=== PATIENT | male | born 1940 | race Caucasian/White ===

== ENCOUNTER 2019-05-12 13:37 | Outpatient (CLI) | payer MEDICARE, OTHER, SELFPAY ==
--- NOTE | 2019-05-12 13:47 | USCV_ITS ---
Geovanny Lujan Age: 78 Gender: M : 1940 Exam Date: 05/12/2019 14:12 Ordering Phys: Guy Durham MD ([email or web address]) Technologist: Dorinda Gutierrez Exam Location: [facility] [place] Indication: carotid stenosis Risk Factors: None Previous Vascular Surgery: None Right Brachial BP: / Left Brachial BP: / Right Left Velocity (cm/s) Spectral Plaque Velocity (cm/s) Spectral Plaque Syst/Diast Broadening Syst/Diast Broadening 99.20/ 14.30 Prox CCA 118.10/ 18.60 76.10/ 13.20 Mid CCA 81.50 / 6.60 50.60/ 9.90 Hetro Distal CCA 74.90 / 10.50 Jose 78.30/ 15.40 Hetro Prox ICA 87.20 / 12.00 Jose 59.00/ 9.40 Mid ICA 62.40 / 15.40 67.50/ 11.10 Distal ICA 71.20 / 19.10 113.60 ECA 101.80 0.79 ICA/CCA 0.74 Antegrade Vertebral Antegrade 43.40/ 6.60 cm/s 89.30/ 15.40 cm/s Tri Subclavian Tri 185.0 85.40 0 FINDINGS Minimal plaque of the right bifurcation. Mild to moderate plaque of the left bifurcation and proximal internal carotid artery Intimal thickening in the common carotid arteries bilaterally CONCLUSIONS Mild to moderate plaque of the left bifurcation and proximal internal carotid artery Minimal plaque of the right bifurcation. No significant stenosis, based on the above findings Dr Monica Cruz MD [facility] (Electronically Signed) Final Date: 12 May 2019 19:49 S
== END 2019-05-12 13:38 | disposition home or self-care (01) ==
LOC: RAD 13:42
PROVIDERS: PCP Family Medicine; Visit Provider Internal Medicine Cardiovascular Disease
DX: I65.23 Occlusion and stenosis of bilateral carotid arteries (principal)
CPT/HCPCS: 93880

== ENCOUNTER → 2019-06-18 16:16 | Outpatient (BNVA) | payer MEDICARE, OTHER, SELFPAY | PROVIDERS: Family Provider Family Medicine; PCP Family Medicine; Referring Provider Nurse Practitioner; Visit Provider Nurse Practitioner | DX: E78.2 Mixed hyperlipidemia (principal); E11.42 Type 2 diabetes mellitus with diabetic polyneuropathy; Z79.4 Long term (current) use of insulin; I10 Essential (primary) hypertension; E11.9 Type 2 diabetes mellitus without complications; Z76.89 Persons encountering health services in other specified circumstances | CPT/HCPCS: 80053; 80061; 82044; 83036; 85025 ==

== ENCOUNTER 2019-07-08 10:14 | Outpatient (CLI) | payer MEDICARE, OTHER, SELFPAY ==
[2019-07-08 10:42] LABS: Basophils % 0.5 %; Eosinophils # 0.1 10^3/uL (0.0-0.8); Eosinophils % 2.2 %; Hematocrit 37.3 % (42.0-52.0); Hemoglobin 12.1 g/dL (11.7-16.6); Lymphocytes # 2.1 10^3/uL (0.8-4.8); Lymphocytes % 32.6 %; Mean Corpuscular HGB Conc 32.4 g/dL (30.0-36.0); Mean Corpuscular Hemoglobin 29.1 pg (28.0-34.0); Mean Corpuscular Volume 89.7 fL (80-94); Mean Platelet Volume 9.2 fL (7.4-10.4); Monocytes # 0.7 10^3/uL (0.2-0.9); Monocytes % 10.9 %; Neutrophils # 3.5 10^3/uL (1.8-7.7); Neutrophils % 53.5 %; Nucleated Red Blood Cells % 0 %; Platelet Count 225 10^3/cmm (130-400); Red Blood Count 4.16 10^6/uL (4.1-5.3); Red Cell Distribution Width 13.2 % (12.1-15.1); White Blood Count 6.5 10^3/uL (4.0-10.0)
[2019-07-08 10:59] LABS: Albumin Level 4.3 g/dL (3.5-5.2); Anion Gap 16.2 (5-19); Blood Urea Nitrogen 40 mg/dL (8-23); Calcium 9.8 mg/dL (8.5-10.5); Carbon Dioxide 26 mmol/L (22-29); Chloride 101 mmol/L (98-107); Glucose 162 mg/dL (65-115); Phosphorus 3.9 mg/dL (2.5-4.5); Potassium 4.2 mmol/L (3.5-5.1); Sodium 139 mmol/L (136-145)
[2019-07-08 11:16] LABS: Creatinine Urine, Random 64 mg/dL (39-259); Microalbumin Random Urine 34 ug/dL (0-20)
[2019-07-08 11:18] LABS: 25 Hydroxy Vitamin D 50 ng/mL (30-100)
[2019-07-08 11:24] LABS: Microalbum Creatinine Ratio Ur 531 mg/dL (0-20)
[2019-07-08 11:34] LABS: Calcium 9.7 mg/dL (8.5-10.5); Parathyroid Hormone 48.9 pg/mL (15-65)
== END 2019-07-08 10:15 | disposition home or self-care (01) ==
LOC: LAB 10:17
PROVIDERS: PCP Nurse Practitioner; Visit Provider Internal Medicine Nephrology
DX: N18.4 Chronic kidney disease, stage 4 (severe) (principal)
CPT/HCPCS: 36415; 80069; 82044; 82306; 82310; 83970; 85025

== ENCOUNTER 2019-11-06 10:36 | Outpatient (CLI) | payer MEDICARE, OTHER, SELFPAY ==
[2019-11-06 11:00] LABS: Basophils % 0.6 %; Eosinophils # 0.2 10^3/uL (0.0-0.8); Eosinophils % 2.9 %; Hematocrit 36.6 % (42.0-52.0); Hemoglobin 11.7 g/dL (11.7-16.6); Lymphocytes % 27.1 %; Mean Corpuscular Hemoglobin 29.6 pg (28.0-34.0); Mean Corpuscular Volume 92.7 fL (80-94); Mean Platelet Volume 9.3 fL (7.4-10.4); Monocytes # 0.8 10^3/uL (0.2-0.9); Monocytes % 11.3 %; Neutrophils # 4.2 10^3/uL (1.8-7.7); Neutrophils % 57.8 %; Nucleated Red Blood Cells % 0 %; Platelet Count 237 10^3/cmm (130-400); Red Blood Count 3.95 10^6/uL (4.1-5.3); Red Cell Distribution Width 13.2 % (12.1-15.1); White Blood Count 7.2 10^3/uL (4.0-10.0)
[2019-11-06 11:36] LABS: Albumin Level 4.2 g/dL (3.5-5.2); Anion Gap 17.6 (5-19); Blood Urea Nitrogen 47 mg/dL (8-23); Calcium 9.6 mg/dL (8.5-10.5); Carbon Dioxide 27 mmol/L (22-29); Chloride 100 mmol/L (98-107); Glucose 100 mg/dL (65-115); Phosphorus 4.2 mg/dL (2.5-4.5); Potassium 4.6 mmol/L (3.5-5.1); Sodium 140 mmol/L (136-145)
[2019-11-06 11:57] LABS: Creatinine Urine, Random 53 mg/dL (39-259); Microalbumin Random Urine 18 ug/dL (0-20)
[2019-11-06 12:15] LABS: Microalbum Creatinine Ratio Ur 340 mg/dL (0-20)
== END 2019-11-06 10:37 | disposition home or self-care (01) ==
LOC: LAB 10:36
PROVIDERS: Visit Provider Internal Medicine Nephrology
DX: N18.3 Chronic kidney disease, stage 3 (moderate) (principal)
CPT/HCPCS: 36415; 80069; 82044; 85025

== ENCOUNTER → 2019-12-16 10:07 | Outpatient (BNVA) | payer MEDICARE, OTHER, SELFPAY | PROVIDERS: PCP Family Medicine; Visit Provider Family Medicine | DX: E11.42 Type 2 diabetes mellitus with diabetic polyneuropathy (principal); Z79.4 Long term (current) use of insulin | CPT/HCPCS: 83036 ==

== ENCOUNTER 2020-02-13 09:55 | Outpatient (CLI) | payer MEDICARE, OTHER, SELFPAY ==
[2020-02-13 10:48] LABS: Albumin Level 4.3 g/dL (3.5-5.2); Anion Gap 15.6 (5-19); Blood Urea Nitrogen 69 mg/dL (8-23); Calcium 9.6 mg/dL (8.5-10.5); Carbon Dioxide 23 mmol/L (22-29); Chloride 103 mmol/L (98-107); Glucose 160 mg/dL (65-115); Phosphorus 4.7 mg/dL (2.5-4.5); Potassium 4.6 mmol/L (3.5-5.1); Sodium 137 mmol/L (136-145)
[2020-02-13 10:55] LABS: Urine Creatinine 110 mg/dL (39-259)
[2020-02-13 10:59] LABS: UPRO/UCREAT Ratio 0.28 mg/mg CR; Urine Protein Random 31 mg/dL
[2020-02-13 11:04] LABS: Calcium 9.5 mg/dL (8.5-10.5); Parathyroid Hormone 58.6 pg/mL (15-65)
== END 2020-02-13 09:56 | disposition home or self-care (01) ==
LOC: LAB 10:00
PROVIDERS: PCP Internal Medicine Nephrology; Visit Provider Internal Medicine Nephrology
DX: N18.4 Chronic kidney disease, stage 4 (severe) (principal)
CPT/HCPCS: 36415; 80069; 82310; 82570; 83970; 84156

== ENCOUNTER 2020-02-16 13:30 | Outpatient (CLI) | payer MEDICARE, OTHER, SELFPAY ==
--- NOTE | 2020-02-16 13:38 | XR_ITS ---
WS: [id number] CERVICAL SPINE TECHNIQUE: 3 views of the cervical spine CLINICAL INFORMATION: chronic neck pain COMPARISON: None. FINDINGS: Straightening of the normal cervical lordosis. Slight anterolisthesis C3 on C4. Disc space narrowing worse at C4-C5 and C5-C6. Anterior hypertrophic changes worse in the mid cervical spine. Normal C1-2 articulation. Normal prevertebral soft tissues. Moderate to advanced facet arthropathy in mid cervica l spine. XR/XR cervical spine 3V* [id number] IMPRESSION: 1. Moderate spondylitic changes cervical spine with slight anterolisthesis C3 on C4 measuring 2.1 mm. 2. Disc space narrowing worse at C4-C5 C5-C6 and C6-C7. 3. Anterior hypertrophic changes C4-C6.
== END 2020-02-16 13:31 | disposition home or self-care (01) ==
LOC: WPI 13:37
PROVIDERS: PCP Internal Medicine Nephrology; Visit Provider Family Medicine
DX: M54.2 Cervicalgia (principal); G89.29 Other chronic pain
CPT/HCPCS: 72040

== ENCOUNTER 2020-02-20 09:30 | Outpatient (RCR) | payer MEDICARE, OTHER, SELFPAY | END 2020-03-06 23:59 | disposition home or self-care (01) | LOC: SPT 09:30 | PROVIDERS: PCP Internal Medicine Nephrology; Referring Provider Family Medicine; Visit Provider Family Medicine | DX: G89.29 Other chronic pain (principal); M54.2 Cervicalgia | CPT/HCPCS: 97110; 97161 ==

== ENCOUNTER 2020-03-07 06:00 | Outpatient (RCR) | payer MEDICARE, OTHER, SELFPAY | END 2020-04-05 23:59 | disposition home or self-care (01) | LOC: SPT 06:00 | PROVIDERS: PCP Internal Medicine Nephrology; Referring Provider Family Medicine; Visit Provider Family Medicine | DX: M54.2 Cervicalgia (principal); G89.29 Other chronic pain | CPT/HCPCS: 97110 ==

== ENCOUNTER 2020-03-16 15:52 | Outpatient (CLI) | payer MEDICARE, OTHER, SELFPAY ==
--- NOTE | 2020-03-16 16:20 | MR_ITS ---
WS: [id number] MRI CERVICAL SPINE NONCONTRAST TECHNIQUE: Sagittal T1, T2 and STIR imaging. Axial T2, gradient, and fiesta imaging. CLINICAL INFORMATION: chronic neck pain COMPARISON: None. FINDINGS: Straightening of the normal cervical lordosis. Cord signal is normal. Moderate spondylitic changes. C2-C3: Normal. C3-C4: Mild disc osteophyte complex with endplate ridging. Mild left and no significant right foramin al narrowing. Spinal canal is patent. Mild facet arthropathy. C4-C5: Disc osteophyte complex endplate ridging. Mild central canal stenosis. Mild to moderate left a nd mild right bony foraminal narrowing. Moderate facet arthropathy. C5-C6: Disc osteophyte complex with endplate ridging. Mild central canal stenosis. Mild left and no s ignificant right foraminal narrowing. Mild facet arthropathy. C6-C7: Slight anterolisthesis C6 on C7. Small central disc osteophyte protrusion with mild central ca nal stenosis. Mild to moderate left and no significant right foraminal narrowing. C7-T1: Grade 1 anterolisthesis C7 on T1. Mild left greater than right bony foraminal narrowing. Spina l canal is patent. Visualized brain stem structures: Normal. Prevertebral soft tissues: Normal. MR/MR cervical spin wo con* [id number] IMPRESSION: 1. Straightening of the normal cervical lordosis. Cord signal is normal. 2. Mild central canal stenosis due to disc osteophyte complexes at C4-C5 C5-C6 and C6-C7. 3. Left pericentral disc osteophyte protrusion at C6-C7 with slight contact of the cervical cord. 4. Slight anterolisthesis C6 on C7, C7 on T1, and T1 on T2. 5. Mild to moderate bony foraminal narrowing worse at left C4-C5, left C5-C6, and left C6-C7.
== END 2020-03-16 15:53 | disposition home or self-care (01) ==
LOC: RADWPI 15:57
PROVIDERS: PCP Family Medicine; Visit Provider Family Medicine
DX: M54.2 Cervicalgia (principal); G89.29 Other chronic pain; M48.02 Spinal stenosis, cervical region; M25.78 Osteophyte, vertebrae
CPT/HCPCS: 72141

== ENCOUNTER → 2020-03-24 08:39 | Outpatient (BNVA) | payer MEDICARE, OTHER, SELFPAY | PROVIDERS: PCP Family Medicine; Referring Provider Family Medicine; Visit Provider Anesthesiology Pain Medicine | DX: G89.29 Other chronic pain (principal); M54.2 Cervicalgia; M51.17 Intervertebral disc disorders with radiculopathy, lumbosacral region | CPT/HCPCS: 99204 ==

== ENCOUNTER → 2020-04-05 10:48 | Outpatient (BNVA) | payer MEDICARE, OTHER, SELFPAY | PROVIDERS: PCP Family Medicine; Visit Provider Family Medicine | DX: E11.42 Type 2 diabetes mellitus with diabetic polyneuropathy (principal); Z79.4 Long term (current) use of insulin; E78.2 Mixed hyperlipidemia; I10 Essential (primary) hypertension | CPT/HCPCS: 80061; 83036 ==

== ENCOUNTER → 2020-04-07 12:45 | Outpatient (BNVA) | payer MEDICARE, OTHER, SELFPAY | PROVIDERS: PCP Family Medicine; Visit Provider Anesthesiology Pain Medicine | DX: G89.29 Other chronic pain (principal); M54.2 Cervicalgia | CPT/HCPCS: 62321; J1100 ==

== ENCOUNTER → 2020-04-26 09:57 | Outpatient (BNVA) | payer MEDICARE, OTHER, SELFPAY | PROVIDERS: PCP Family Medicine; Visit Provider Anesthesiology Pain Medicine | DX: M54.2 Cervicalgia (principal); G89.29 Other chronic pain; E11.42 Type 2 diabetes mellitus with diabetic polyneuropathy; Z79.4 Long term (current) use of insulin; Z87.891 Personal history of nicotine dependence | CPT/HCPCS: 99213 ==

== ENCOUNTER 2020-05-04 10:04 | Outpatient (CLI) | payer MEDICARE, OTHER, SELFPAY ==
[2020-05-04 10:49] LABS: Anion Gap 15.8 (5-19); Blood Urea Nitrogen 65 mg/dL (8-23); Calcium 9.3 mg/dL (8.5-10.5); Carbon Dioxide 23 mmol/L (22-29); Chloride 104 mmol/L (98-107); Glucose 135 mg/dL (65-115); Phosphorus 4.6 mg/dL (2.5-4.5); Potassium 4.8 mmol/L (3.5-5.1); Sodium 138 mmol/L (136-145)
== END 2020-05-04 10:05 | disposition home or self-care (01) ==
LOC: LAB 10:08
PROVIDERS: PCP Family Medicine; Visit Provider Internal Medicine Nephrology
DX: N18.4 Chronic kidney disease, stage 4 (severe) (principal)
CPT/HCPCS: 80069

== ENCOUNTER → 2020-05-18 12:56 | Outpatient (BNVA) | payer MEDICARE, OTHER, SELFPAY | PROVIDERS: PCP Family Medicine; Visit Provider Anesthesiology Pain Medicine | DX: G89.29 Other chronic pain (principal); M54.2 Cervicalgia | CPT/HCPCS: 62321; J1100 ==

== ENCOUNTER → 2020-06-01 10:11 | Outpatient (BNVA) | payer MEDICARE, OTHER, SELFPAY | PROVIDERS: PCP Family Medicine; Visit Provider Anesthesiology Pain Medicine | DX: G89.29 Other chronic pain (principal); M54.2 Cervicalgia | CPT/HCPCS: 99214 ==

== ENCOUNTER → 2020-06-15 12:25 | Outpatient (BNVA) | payer MEDICARE, OTHER, SELFPAY | PROVIDERS: PCP Family Medicine; Visit Provider Anesthesiology Pain Medicine | DX: G89.29 Other chronic pain (principal); M54.2 Cervicalgia | CPT/HCPCS: 62321; J1100 ==

== ENCOUNTER → 2020-07-01 12:58 | Outpatient (BNVA) | payer MEDICARE, OTHER, SELFPAY | PROVIDERS: PCP Family Medicine; Visit Provider Anesthesiology Pain Medicine | DX: G89.29 Other chronic pain (principal); M51.17 Intervertebral disc disorders with radiculopathy, lumbosacral region; M54.2 Cervicalgia | CPT/HCPCS: 99213 ==

== ENCOUNTER → 2020-07-12 10:45 | Outpatient (BNVA) | payer MEDICARE, OTHER, SELFPAY | PROVIDERS: PCP Family Medicine; Visit Provider Family Medicine | DX: E11.42 Type 2 diabetes mellitus with diabetic polyneuropathy (principal); Z79.4 Long term (current) use of insulin | CPT/HCPCS: 83036 ==

== ENCOUNTER 2020-07-13 13:15 | Outpatient (CLI) | payer MEDICARE, OTHER, SELFPAY ==
--- NOTE | 2020-07-13 13:00 | XR_ITS ---
WS: [id number] LEFT FOOT: 3 VIEW(S) TECHNIQUE: AP, oblique and lateral. HISTORY: concern for foreign body at fifth metatarsal COMPARISON: None available. No acute fracture or dislocation. Degenerative joint space disease involving the tarsometatarsal articular surface. No foreign body is identified. Mild soft tissue edema along the lateral foot. Diffuse osteopenia. Moderate peripheral arterial atherosclerosis. Enthesopathy at the Achilles tendon. XR/XR foot LT min 3V* [id number] IMPRESSION: 1. No radiopaque foreign body. 2. 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 3. Osteopenia and moderate peripheral arterial atherosclerosis.
== END 2020-07-13 13:16 | disposition home or self-care (01) ==
LOC: RADWPI 13:21
PROVIDERS: PCP Family Medicine; Visit Provider Family Medicine
DX: M19.072 Primary osteoarthritis, left ankle and foot (principal); M85.88 Other specified disorders of bone density and structure, other site; I70.208 Unspecified atherosclerosis of native arteries of extremities, other extremity
CPT/HCPCS: 73630

== ENCOUNTER → 2020-08-02 10:21 | Outpatient (BNVA) | payer MEDICARE, OTHER, SELFPAY | PROVIDERS: PCP Family Medicine; Referring Provider Family Medicine; Visit Provider Internal Medicine | DX: E11.22 Type 2 diabetes mellitus with diabetic chronic kidney disease (principal); N18.4 Chronic kidney disease, stage 4 (severe); E11.42 Type 2 diabetes mellitus with diabetic polyneuropathy; Z79.4 Long term (current) use of insulin; E66.9 Obesity, unspecified; Z86.73 Personal history of transient ischemic attack (TIA), and cerebral infarction without residual deficits | CPT/HCPCS: 99205 ==

== ENCOUNTER 2020-08-18 10:24 | Outpatient (CLI) | payer MEDICARE, OTHER, SELFPAY ==
[2020-08-18 11:06] LABS: Albumin Level 4.2 g/dL (3.5-5.2); Anion Gap 15.2 (5-19); Blood Urea Nitrogen 75 mg/dL (8-23); Calcium 8.6 mg/dL (8.5-10.5); Carbon Dioxide 22 mmol/L (22-29); Chloride 105 mmol/L (98-107); Glucose 67 mg/dL (65-115); Phosphorus 4.5 mg/dL (2.5-4.5); Potassium 4.2 mmol/L (3.5-5.1); Sodium 138 mmol/L (136-145)
[2020-08-18 11:33] LABS: Creatinine Urine, Random 78 mg/dL (39-259); Microalbumin Random Urine 7 ug/dL (0-20)
[2020-08-18 11:35] LABS: Microalbum Creatinine Ratio Ur 90 mg/dL (0-20)
[2020-08-18 11:43] LABS: Calcium 8.8 mg/dL (8.5-10.5); Parathyroid Hormone 61.3 pg/mL (15-65)
== END 2020-08-18 10:25 | disposition home or self-care (01) ==
PROVIDERS: PCP Family Medicine; Visit Provider Internal Medicine Nephrology
DX: N18.4 Chronic kidney disease, stage 4 (severe) (principal)
CPT/HCPCS: 36415; 80069; 82044; 82310; 83970

== ENCOUNTER → 2020-09-23 13:00 | Outpatient (BNVA) | payer MEDICARE, OTHER, SELFPAY | PROVIDERS: PCP Family Medicine; Visit Provider Anesthesiology Pain Medicine | DX: G89.29 Other chronic pain (principal); M54.2 Cervicalgia; M54.9 Dorsalgia, unspecified | CPT/HCPCS: 99213 ==

== ENCOUNTER → 2020-10-11 10:49 | Outpatient (BNVA) | payer MEDICARE, OTHER, SELFPAY | PROVIDERS: PCP Family Medicine; Visit Provider Family Medicine | DX: I10 Essential (primary) hypertension (principal); E11.42 Type 2 diabetes mellitus with diabetic polyneuropathy; N40.0 Benign prostatic hyperplasia without lower urinary tract symptoms; Z79.4 Long term (current) use of insulin | CPT/HCPCS: 80053; 83036; 85025; G0103 ==

== ENCOUNTER → 2020-10-12 10:23 | Outpatient (BNVA) | payer MEDICARE, OTHER, SELFPAY | PROVIDERS: PCP Family Medicine; Visit Provider Surgery | DX: Z01.812 Encounter for preprocedural laboratory examination (principal); Z20.822 Contact with and (suspected) exposure to COVID-19 | CPT/HCPCS: 87635 ==

== ENCOUNTER 2020-11-24 08:45 | Outpatient (CLI) | payer MEDICARE, OTHER, SELFPAY ==
[2020-11-24 09:21] LABS: Anion Gap 16.7 (5-19); Blood Urea Nitrogen 64 mg/dL (8-23); Calcium 8.6 mg/dL (8.5-10.5); Carbon Dioxide 20 mmol/L (22-29); Chloride 106 mmol/L (98-107); Glucose 113 mg/dL (65-115); Phosphorus 4.7 mg/dL (2.5-4.5); Potassium 4.7 mmol/L (3.5-5.1); Sodium 138 mmol/L (136-145)
[2020-11-24 09:27] LABS: Creatinine Urine, Random 92 mg/dL (39-259); Microalbumin Random Urine 10 ug/dL (0-20)
[2020-11-24 09:34] LABS: Microalbum Creatinine Ratio Ur 109 mg/dL (0-20)
[2020-11-24 10:19] LABS: Calcium 8.6 mg/dL (8.5-10.5)
[2020-11-24 10:20] LABS: Parathyroid Hormone 60.8 pg/mL (15-65)
== END 2020-11-24 08:46 | disposition home or self-care (01) ==
LOC: LAB 08:47
PROVIDERS: PCP Family Medicine; Visit Provider Internal Medicine Nephrology
DX: N18.4 Chronic kidney disease, stage 4 (severe) (principal)
CPT/HCPCS: 36415; 80069; 82044; 82310; 83970

== ENCOUNTER → 2020-12-16 10:56 | Outpatient (BNVA) | payer MEDICARE, OTHER, SELFPAY | PROVIDERS: PCP Family Medicine; Visit Provider Surgery | DX: D50.9 Iron deficiency anemia, unspecified (principal); Z86.010 Personal history of colon polyps | CPT/HCPCS: 87635 ==

== ENCOUNTER → 2020-12-20 10:26 | Outpatient (BNVA) | payer MEDICARE, OTHER, SELFPAY | PROVIDERS: PCP Family Medicine; Visit Provider Surgery | DX: Z20.822 Contact with and (suspected) exposure to COVID-19 (principal) | CPT/HCPCS: 87635 ==

== ENCOUNTER 2020-12-23 08:27 | Day surgery (SDC) | payer MEDICARE, OTHER, SELFPAY ==
[2020-12-21 13:13] VITALS: BMI 34.8
--- NOTE | 2020-12-23 08:38 | ANES.PREANE2 ---
Pre-Anesthetic Assessment Pre-Anesthetic Assessment: Height/Weight: Height 1.8 m Weight 113.398 kg Preop Diagnosis: anemia Proposed Procedure: Operation Date: 12/23/20 09:45 Proposed Procedures p EGD 17918 25803 d50.9 z86.010(Not Applicable) - David Hunter MD s Colonoscopy(Not Applicable) - David Hunter MD Familial anesthetic complications: None Was Beta Lisa taken within 24 hours: N/A Was Clonidine taken within 24 hours: N/A Last intake: > 8 hrs Social: Social History: No alcohol and No tobacco Exam: Pre-Anes Outpt Exam: alert, oriented x 3, clear to auscultation bilaterally and regular rate & rhythm Airway: Cervical ROM: WNL MP: 4 Dentition: Chipped and Other (missing, rotten teeth) Additional comments: large neck circumference Pulmonary: Pulmonary: COPD (?) and Sleep apnea CV/HEM: CV/HEM: HTN Comments: mild LVH : : Chronic renal Insufficiency Metabolic: Metabolic: DM and Morbid obesity Neuropsych: Neuropsych: 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) Anesthetic Plan: ASA status: 3 Anesthesia: MAC Risk of > 500 ml blood loss (7ml/kg in children): No PFSH Anesthesia PFSH: Medical History Acquired left ventricular hypertrophy BPH (benign prostatic hyperplasia) Carotid artery disease without cerebral infarction CKD (chronic kidney disease), stage IV COPD (chronic obstructive pulmonary disease) Duodenal ulcer Essential (primary) hypertension Mixed hyperlipidemia Obstructive sleep apnea Type 2 diabetes mellitus with diabetic polyneuropathy, with long-term current use of insulin Surgical History AV fistula H/O esophagogastroduodenoscopy History of arthroscopy of left shoulder History of colonoscopy with polypectomy 2004 Hx of appendectomy Hx of bilateral cataract extraction Family History Father Cirrhosis of liver Other Diabetes Social History Smoking and tobacco status: never smoked Second hand smoke exposure: Yes Alcohol intake: former Household members: spouse Marital status: service: Yes branch: [employer] Current occupational status: retired 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
[2020-12-23 08:58] VITALS: BP 144/67; PULSE 54; RESP 18; TEMP 36.2; O2SAT 94
[2020-12-23 09:27] LABS: Glucose Point of Care 195 mg/dL (70-110)
[2020-12-23] MEDS: sodium chloride 0.9% 1,000 ML 30 ML IV (09:29)
--- NOTE | 2020-12-23 09:52 | P.HP_ITS ---
Same Day Surgery H&P Indication for Procedure/HPI DATE OF PROCEDURE: December 23, 2020 CHIEF COMPLAINT/INDICATIONFOR SURGICAL PROCEDURE: Anemia, EGD, colonoscopy PREOP DIAGNOSIS: panendoscopy PLANNED PROCEDRUE: Operation Date: 12/23/20 09:45 Proposed Procedures p EGD [id number] d50.9 z86.010(Not Applicable) - David Hunter MD s Colonoscopy(Not Applicable) - David Hunter MD Medications/Allergies* Home Medications Medication Instructions Recorded Confirmed Type aspirin 81 mg tablet,delayed 81 mg PO DAILY 06/17/19 12/23/20 History release cholecalciferol (vitamin D3) 50 2,000 unit PO DAILY 06/17/19 12/23/20 History mcg (2,000 unit) capsule acetaminophen 500 mg tablet 500 mg PO TID PRN tab 03/24/20 12/23/20 History Allergies/Adverse Reactions Allergy/AdvReac Type Severity Reaction Status Date / Time No Known Allergies Allergy Verified 12/23/20 09:05 Current Medications: Generic Name Dose Route Start Last Admin Trade Name Freq PRN Reason Stop Dose Admin Sodium Chloride 1,000 mls @ 30 mls/hr 12/23/20 09:00 12/23/20 09:29 Sodium Chloride 0.9% IV 12/24/20 08:59 30 mls/hr .Q24H ROSELIA Administration Pertinent History/Comorbid Conditions* Medical History (Updated 12/14/20 @ 10:59 by Elie Vaca DPM) Acquired left ventricular hypertrophy BPH (benign prostatic hyperplasia) Carotid artery disease without cerebral infarction CKD (chronic kidney disease), stage IV COPD (chronic obstructive pulmonary disease) Duodenal ulcer Essential (primary) hypertension Mixed hyperlipidemia Obstructive sleep apnea Type 2 diabetes mellitus with diabetic polyneuropathy, with long-term current use of insulin Surgical History (Updated 10/26/20 @ 09:40 by David Hunter MD) AV fistula H/O esophagogastroduodenoscopy History of arthroscopy of left shoulder History of colonoscopy with polypectomy 2004 Hx of appendectomy Hx of bilateral cataract extraction Family History (Updated 06/18/19 @ 09:10 by Marie Dunham LPN) Diabetes Cirrhosis of liver Father Social History Smoking and tobacco status: never smoked Second hand smoke exposure: Yes Alcohol intake: former Household members: spouse Marital status: service: Yes branch: [employer] Current occupational status: retired 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
[2020-12-23 10:36] VITALS: BP 127/54; PULSE 68; RESP 16; TEMP 36.2; O2SAT 93
--- NOTE | 2020-12-23 10:40 | ANE.PACU2 ---
Inpatient post-anesthesia follow up: Airway intact: Yes Vital signs: Temperature 97.2 F Pulse Rate 54 Respiratory Rate 18 Blood Pressure 144/67 Pulse Oximetry 94 Oxygen Delivery Me thod Room Air Oxygen Flow Rate Fraction of Inspir ed Oxygen Hydration adequate: Yes Mental status: Baseline
== END 2020-12-23 11:15 | disposition home or self-care (01) ==
PROVIDERS: PCP Family Medicine; Visit Provider Surgery
PROC: 0DJ08ZZ Inspection of Upper Intestinal Tract, Via Natural or Artificial Opening Endoscopic (ICD-10-PCS; CPT 43235; principal; 2020-12-23 09:45)
PROC: 0DJD8ZZ Inspection of Lower Intestinal Tract, Via Natural or Artificial Opening Endoscopic (ICD-10-PCS; CPT 45378; 2020-12-23 09:45)
DX: Z86.010 Personal history of colon polyps (principal); D50.9 Iron deficiency anemia, unspecified; K22.70 Barrett's esophagus without dysplasia; K57.30 Diverticulosis of large intestine without perforation or abscess without bleeding; K64.8 Other hemorrhoids; J44.9 Chronic obstructive pulmonary disease, unspecified; G47.30 Sleep apnea, unspecified; E66.01 Morbid (severe) obesity due to excess calories; Z68.34 Body mass index [BMI] 34.0-34.9, adult; Z86.73 Personal history of transient ischemic attack (TIA), and cerebral infarction without residual deficits; N40.0 Benign prostatic hyperplasia without lower urinary tract symptoms; E11.22 Type 2 diabetes mellitus with diabetic chronic kidney disease; I12.9 Hypertensive chronic kidney disease with stage 1 through stage 4 chronic kidney disease, or unspecified chronic kidney disease; N18.9 Chronic kidney disease, unspecified; E78.2 Mixed hyperlipidemia
CPT/HCPCS: 36416; 43239; 45378; 82962; 88305; 96360; 96361; J2704; J3490; J7030

== ENCOUNTER 2021-03-02 09:30 | Outpatient (CLI) | payer MEDICARE, OTHER, SELFPAY ==
[2021-03-02 10:48] LABS: Albumin Level 4.2 g/dL (3.5-5.2); Anion Gap 15.3 (5-19); Blood Urea Nitrogen 63 mg/dL (8-23); Calcium 9.5 mg/dL (8.5-10.5); Carbon Dioxide 23 mmol/L (22-29); Chloride 103 mmol/L (98-107); Glucose 100 mg/dL (65-115); Phosphorus 4.8 mg/dL (2.5-4.5); Potassium 4.3 mmol/L (3.5-5.1); Sodium 137 mmol/L (136-145)
[2021-03-02 10:49] LABS: Creatinine Urine, Random 91 mg/dL (39-259); Microalbumin Random Urine 36 ug/dL (0-20)
[2021-03-02 10:49] LABS: Calcium 9.4 mg/dL (8.5-10.5)
[2021-03-02 10:56] LABS: Parathyroid Hormone 42.7 pg/mL (15-65)
[2021-03-02 11:01] LABS: Microalbum Creatinine Ratio Ur 396 mg/dL (0-20)
[2021-03-02 13:02] LABS: Iron 79 ug/dL (59-158); Percent Saturation 27.7 % (20-50); Total Iron Binding Capacity 285 mcg/dl; Unsaturated Iron Binding 206 ug/dL (112-347)
== END 2021-03-02 09:31 | disposition home or self-care (01) ==
LOC: LAB 09:41
PROVIDERS: PCP Family Medicine; Visit Provider Internal Medicine Nephrology
DX: N18.4 Chronic kidney disease, stage 4 (severe) (principal)
CPT/HCPCS: 36415; 80069; 82044; 82310; 83540; 83550; 83970

== ENCOUNTER → 2021-03-14 10:46 | Outpatient (BNVA) | payer MEDICARE, OTHER, SELFPAY | PROVIDERS: PCP Family Medicine; Visit Provider Family Medicine | DX: E78.2 Mixed hyperlipidemia (principal); E11.42 Type 2 diabetes mellitus with diabetic polyneuropathy; Z79.4 Long term (current) use of insulin | CPT/HCPCS: 80053; 80061; 83036 ==

== ENCOUNTER → 2021-05-03 09:52 | Outpatient (BNVA) | payer MEDICARE, OTHER, SELFPAY | PROVIDERS: PCP Family Medicine; Visit Provider Internal Medicine | DX: E11.42 Type 2 diabetes mellitus with diabetic polyneuropathy (principal); E11.22 Type 2 diabetes mellitus with diabetic chronic kidney disease; N18.4 Chronic kidney disease, stage 4 (severe); E66.9 Obesity, unspecified; E16.0 Drug-induced hypoglycemia without coma; T38.3X5A Adverse effect of insulin and oral hypoglycemic [antidiabetic] drugs, initial encounter; I25.10 Atherosclerotic heart disease of native coronary artery without angina pectoris; Z86.73 Personal history of transient ischemic attack (TIA), and cerebral infarction without residual deficits; Z79.4 Long term (current) use of insulin; Z68.36 Body mass index [BMI] 36.0-36.9, adult; Z87.891 Personal history of nicotine dependence | CPT/HCPCS: 99214 ==

== ENCOUNTER 2021-06-15 09:29 | Outpatient (CLI) | payer MEDICARE, SELFPAY ==
[2021-06-15 10:44] LABS: Albumin Level 4.3 g/dL (3.5-5.2); Blood Urea Nitrogen 63 mg/dL (8-23); Calcium 9.5 mg/dL (8.5-10.5); Carbon Dioxide 21 mmol/L (22-29); Chloride 103 mmol/L (98-107); Glucose 166 mg/dL (65-115); Phosphorus 4.3 mg/dL (2.5-4.5); Sodium 135 mmol/L (136-145)
[2021-06-15 10:47] LABS: Creatinine Urine, Random 99 mg/dL (39-259); Microalbum Creatinine Ratio Ur 354 mg/dL (0-20); Microalbumin Random Urine 35 ug/dL (0-20)
[2021-06-15 11:06] LABS: Calcium 9.4 mg/dL (8.5-10.5)
[2021-06-15 11:14] LABS: Parathyroid Hormone 98.2 pg/mL (15-65)
[2021-06-15 21:28] LABS: Estmated Average Glucose 160; Hemoglobin A1C 7.2 % (4.0-6.0)
== END 2021-06-15 09:30 | disposition home or self-care (01) ==
PROVIDERS: PCP Family Medicine; Referring Provider Internal Medicine; Visit Provider Internal Medicine Nephrology
DX: E11.42 Type 2 diabetes mellitus with diabetic polyneuropathy (principal); Z79.4 Long term (current) use of insulin; Z79.891 Long term (current) use of opiate analgesic; N18.4 Chronic kidney disease, stage 4 (severe)
CPT/HCPCS: 80069; 82044; 82310; 83036; 83970

== ENCOUNTER → 2021-08-04 15:06 | Outpatient (BNVA) | payer MEDICARE, SELFPAY | PROVIDERS: PCP Family Medicine; Visit Provider Internal Medicine | DX: I73.9 Peripheral vascular disease, unspecified (principal); E78.2 Mixed hyperlipidemia; E11.22 Type 2 diabetes mellitus with diabetic chronic kidney disease; I12.9 Hypertensive chronic kidney disease with stage 1 through stage 4 chronic kidney disease, or unspecified chronic kidney disease; N18.4 Chronic kidney disease, stage 4 (severe); Z79.4 Long term (current) use of insulin; G47.33 Obstructive sleep apnea (adult) (pediatric); R06.00 Dyspnea, unspecified; Z87.891 Personal history of nicotine dependence; Z79.82 Long term (current) use of aspirin | CPT/HCPCS: 99214 ==

== ENCOUNTER → 2021-08-31 13:31 | Outpatient (BNVA) | payer MEDICARE, SELFPAY | PROVIDERS: PCP Family Medicine; Visit Provider Internal Medicine | DX: E11.649 Type 2 diabetes mellitus with hypoglycemia without coma (principal); E11.42 Type 2 diabetes mellitus with diabetic polyneuropathy; E11.22 Type 2 diabetes mellitus with diabetic chronic kidney disease; I12.9 Hypertensive chronic kidney disease with stage 1 through stage 4 chronic kidney disease, or unspecified chronic kidney disease; N18.4 Chronic kidney disease, stage 4 (severe); E78.2 Mixed hyperlipidemia; I25.10 Atherosclerotic heart disease of native coronary artery without angina pectoris; Z86.73 Personal history of transient ischemic attack (TIA), and cerebral infarction without residual deficits; E66.9 Obesity, unspecified; E16.0 Drug-induced hypoglycemia without coma; T38.3X5A Adverse effect of insulin and oral hypoglycemic [antidiabetic] drugs, initial encounter; Z79.4 Long term (current) use of insulin; Z87.891 Personal history of nicotine dependence; Z68.34 Body mass index [BMI] 34.0-34.9, adult | CPT/HCPCS: 99214 ==

== ENCOUNTER 2021-10-14 11:42 | Outpatient (CLI) | payer MEDICARE, SELFPAY ==
--- NOTE | 2021-10-14 12:00 | USCV_ITS ---
Geovanny Lujan Age: 81 Gender: M : 1940 Exam Date: 10/14/2021 12:18 Ordering Phys: Arcenio Morris M.D ([email or web address]) Technologist: JACK [place]am [place] [facility] [place] Indication: CHEST PAIN, SHORTNESS OF BREATH BP: 119 / 64 HR: 49 Rhythm: Sinus Technical Quality: Technically difficult study MEASUREMENTS (Male / Female) Normal Values 2D ECHO LV Diastolic Diameter PLAX 5.8 cm 4.2 - 5.9 / 3.9 - 5.3 cm LV Systolic Diameter PLAX 3.0 cm IVS Diastolic Thickness 1.9 cm 0.6 - 1.0 / 0.6 - 0.9 cm IVS Systolic Thickness 2.3 cm LVPW Diastolic Thickness 1.4 cm 0.6 - 1.0 / 0.6 - 0.9 cm LVPW Systolic Thickness 2.2 cm LVOT Diameter 2.0 cm LV Ejection Fraction 2D Teich 79.8 % LV Ejection Fraction MOD 2C 60.9 % LV Ejection Fraction 2C AL 64.2 % LA Diameter 4.6 cm LA Width 4.4 cm LA Height 4.6 cm RA Width 3.5 cm RA Height 4.3 cm Aorta at Sinotubular Diameter 2.9 cm M-MODE Aortic Annulus Diameter 3.5 cm LA Ao Ratio MM 1.3 MV E Point Septal Separation 0.6 cm DOPPLER AV Peak Velocity 136.0 cm/s LVOT Peak Velocity 97.0 cm/s AV Area Cont Eq vti 2.5 cm squared AV Area Cont Eq pk 2.3 cm squared MV Peak Velocity 98.0 cm/s MV Area PHT 3.6 cm squared Mitral E to A Ratio 1.1 MV E' Velocity 56.5 cm/s Mitral E to MV E' Ratio 11.7 Mitral E to LV E' Lateral Ratio 9.2 Mitral E to LV E' Septal Ratio 16.2 TR Peak Velocity 179.5 cm/s TR Peak Gradient 12.9 mmHg TR Mean Velocity 156.9 cm/s TR Mean Gradient 9.9 mmHg TR Velocity Time Integral 60.8 cm TV Peak E Velocity 50.0 cm/s Right Atrial Pressure 3.0 mmHg Pulmonary Artery Systolic Pressu 15.9 mmHg PV Peak Velocity 98.0 cm/s RV Acceleration Time 0.1 s RV Ejection Time 0.4 s RV AcT/ET 0.2 FINDINGS Left Ventricle Normal left ventricular size. LV systolic function is normal with EF of 55-60%. No regional wall motion abnormalities. Right Ventricle The right ventricle is normal in size and function. Right Atrium The right atrium is normal in size. Left Atrium The left atrium is dilated Mitral Valve Mild mitral annular calcification without significant stenosis or prolapse. There is trace mitral regurgitation. Aortic Valve Structurally normal aortic valve without significant sclerosis or stenosis. There is no aortic regurgitation. Tricuspid Valve Structurally normal tricuspid valve without significant stenosis. Trace tricuspid regurgitation. Insufficient TR jet to calculate RVSP Pulmonic Valve Not well visualized Pericardium Normal pericardium without effusion. Aorta Normal ascending aorta dimension. IVC CONCLUSIONS Technically limited quality echocardiogram because of poor ultrasonic windows LV systolic function is normal with EF of 55-60% Left atrium is dilated Mild mitral annular calcification. Trace mitral regurgitation Trace tricuspid regurgitation Compared to prior echocardiogram from 02/05/2016 no significant changes are noted Arcenio Morris MD (Electronically Signed) Final Date: 21 October 2021 22:21 S
== END 2021-10-14 11:43 | disposition home or self-care (01) ==
LOC: RAD 11:43
PROVIDERS: PCP Family Medicine; Visit Provider Internal Medicine
DX: I08.1 Rheumatic disorders of both mitral and tricuspid valves (principal); R07.9 Chest pain, unspecified; R06.02 Shortness of breath
CPT/HCPCS: 93306

== ENCOUNTER 2021-10-25 09:51 | Outpatient (CLI) | payer MEDICARE, SELFPAY ==
[2021-10-25 10:36] LABS: Basophils # 0.1 10^3/uL (0.0-0.1); Basophils % 0.7 %; Eosinophils # 0.3 10^3/uL (0.0-0.8); Eosinophils % 4.1 %; Hemoglobin 11.2 g/dL (11.7-16.6); Lymphocytes % 27.8 %; Mean Corpuscular HGB Conc 32.9 g/dL (30.0-36.0); Mean Corpuscular Hemoglobin 30.2 pg (28.0-34.0); Mean Corpuscular Volume 91.6 fl (80-94); Mean Platelet Volume 9.5 fL (7.4-10.4); Monocytes # 0.8 10^3/uL (0.2-0.9); Monocytes % 11.6 %; Neutrophils # 3.93 10^3/uL (1.8-7.7); Neutrophils % 55.5 %; Nucleated Red Blood Cells % 0 %; Platelet Count 184 10^3/cmm (130-400); Red Blood Count 3.71 10^6/uL (4.1-5.3); Red Cell Distribution Width 13.2 % (12.1-15.1); White Blood Count 7.1 10^3/uL (4.0-10.0)
[2021-10-25 10:54] LABS: Albumin Level 3.9 g/dL (3.5-5.2); Anion Gap 15.5 (5-19); Blood Urea Nitrogen 69 mg/dL (8-23); Calcium 8.9 mg/dL (8.5-10.5); Carbon Dioxide 22 mmol/L (22-29); Chloride 102 mmol/L (98-107); Glucose 143 mg/dL (65-115); Phosphorus 5.1 mg/dL (2.5-4.5); Potassium 4.5 mmol/L (3.5-5.1); Sodium 135 mmol/L (136-145)
[2021-10-25 11:01] LABS: Estmated Average Glucose 237; Hemoglobin A1C 9.9 % (4.0-6.0)
[2021-10-25 11:18] LABS: Alanine Aminotransferase 15 U/L (0-41); Albumin Level 3.9 g/dL (3.5-5.2); Alkaline Phosphatase 47 IU/L (40-130); Anion Gap 17.5 (5-19); Aspartate Amino Transferase 16 U/L (0-40); Blood Urea Nitrogen 69 mg/dL (8-23); Calcium 8.9 mg/dL (8.5-10.5); Carbon Dioxide 21 mmol/L (22-29); Chloride 102 mmol/L (98-107); Chol HDL Ratio 3.83 mg/dL (1.0-5.00); Cholesterol 111 mg/dL (0-200); Globulin 2.7 g/dL (1.3-4.6); Glucose 144 mg/dL (65-115); HDL Cholesterol 29 mg/dL (60-100); LDL Cholesterol Calculated 46 mg/dL (50-129); LDL HDL Ratio 1.59 RATIO (0.00-3.22); Osmolality Calculated 305 mOsm/kg (285-295); Potassium 4.5 mmol/L (3.5-5.1); Sodium 136 mmol/L (136-145); Total Bilirubin 0.4 mg/dL (0.15-1.2); Total Protein 6.6 g/dL (6.6-8.7); Triglycerides 179 mg/dL (0-150)
[2021-10-25 11:26] LABS: 25 Hydroxy Vitamin D 49 ng/mL (30-100)
[2021-10-25 11:36] LABS: Calcium 9.2 mg/dL (8.5-10.5)
[2021-10-25 12:04] LABS: Parathyroid Hormone 67.3 pg/mL (15-65)
[2021-10-25 15:27] LABS: Creatinine Urine, Random 51 mg/dL (39-259)
[2021-10-25 15:41] LABS: Microalbum Creatinine Ratio Ur 5373 mg/dL (0-20); Microalbumin Random Urine 274 ug/dL (0-20)
== END 2021-10-25 09:52 | disposition home or self-care (01) ==
PROVIDERS: Internal Medicine; PCP Family Medicine; Visit Provider Registered Nurse
DX: N18.4 Chronic kidney disease, stage 4 (severe) (principal); E11.649 Type 2 diabetes mellitus with hypoglycemia without coma; E78.2 Mixed hyperlipidemia
CPT/HCPCS: 80053; 80061; 80069; 82044; 82306; 82310; 83036; 83970; 85025

== ENCOUNTER → 2021-10-28 08:47 | Outpatient (BNVA) | payer MEDICARE, SELFPAY | PROVIDERS: PCP Family Medicine; Visit Provider Internal Medicine | DX: E11.649 Type 2 diabetes mellitus with hypoglycemia without coma (principal); E11.42 Type 2 diabetes mellitus with diabetic polyneuropathy; E11.22 Type 2 diabetes mellitus with diabetic chronic kidney disease; E11.59 Type 2 diabetes mellitus with other circulatory complications; N18.4 Chronic kidney disease, stage 4 (severe); E16.0 Drug-induced hypoglycemia without coma; E66.9 Obesity, unspecified; E78.2 Mixed hyperlipidemia; Z86.73 Personal history of transient ischemic attack (TIA), and cerebral infarction without residual deficits; T38.3X5A Adverse effect of insulin and oral hypoglycemic [antidiabetic] drugs, initial encounter; Z79.4 Long term (current) use of insulin; Z68.34 Body mass index [BMI] 34.0-34.9, adult; Z87.891 Personal history of nicotine dependence | CPT/HCPCS: 99214 ==

== ENCOUNTER → 2021-12-13 11:11 | Outpatient (BNVA) | payer MEDICARE, SELFPAY | PROVIDERS: PCP Family Medicine; Visit Provider Family Medicine | DX: R06.00 Dyspnea, unspecified (principal); N40.0 Benign prostatic hyperplasia without lower urinary tract symptoms; I10 Essential (primary) hypertension; M54.2 Cervicalgia; G89.29 Other chronic pain; E11.42 Type 2 diabetes mellitus with diabetic polyneuropathy; Z12.5 Encounter for screening for malignant neoplasm of prostate; Z79.4 Long term (current) use of insulin | CPT/HCPCS: G0103 ==

== ENCOUNTER → 2022-01-30 10:42 | Outpatient (BNVA) | payer MEDICARE, SELFPAY | PROVIDERS: PCP Family Medicine; Visit Provider Internal Medicine | DX: E11.42 Type 2 diabetes mellitus with diabetic polyneuropathy (principal); E11.649 Type 2 diabetes mellitus with hypoglycemia without coma; E11.22 Type 2 diabetes mellitus with diabetic chronic kidney disease; E11.59 Type 2 diabetes mellitus with other circulatory complications; N18.4 Chronic kidney disease, stage 4 (severe); E78.2 Mixed hyperlipidemia; E66.9 Obesity, unspecified; T38.3X5A Adverse effect of insulin and oral hypoglycemic [antidiabetic] drugs, initial encounter; E16.0 Drug-induced hypoglycemia without coma; Z86.73 Personal history of transient ischemic attack (TIA), and cerebral infarction without residual deficits; Z79.4 Long term (current) use of insulin; Z68.35 Body mass index [BMI] 35.0-35.9, adult | CPT/HCPCS: 99214 ==

== ENCOUNTER → 2022-02-02 15:13 | Outpatient (BNVA) | payer MEDICARE, SELFPAY | PROVIDERS: PCP Family Medicine; Visit Provider Internal Medicine | DX: I12.9 Hypertensive chronic kidney disease with stage 1 through stage 4 chronic kidney disease, or unspecified chronic kidney disease (principal); E11.22 Type 2 diabetes mellitus with diabetic chronic kidney disease; N18.4 Chronic kidney disease, stage 4 (severe); Z87.891 Personal history of nicotine dependence; Z79.4 Long term (current) use of insulin; E78.2 Mixed hyperlipidemia; G47.33 Obstructive sleep apnea (adult) (pediatric); I73.9 Peripheral vascular disease, unspecified; R06.00 Dyspnea, unspecified | CPT/HCPCS: 99214 ==

== ENCOUNTER → 2022-02-19 11:36 | Outpatient (BNVA) | payer MEDICARE, SELFPAY | PROVIDERS: PCP Family Medicine; Visit Provider Family Medicine | DX: M79.89 Other specified soft tissue disorders (principal); M25.439 Effusion, unspecified wrist; M54.2 Cervicalgia; G89.29 Other chronic pain; M19.041 Primary osteoarthritis, right hand; M19.031 Primary osteoarthritis, right wrist | CPT/HCPCS: 73110; 73130 ==

== ENCOUNTER 2022-02-23 14:55 | Observation (INO) | payer MEDICARE, SELFPAY ==
[2022-02-23 15:27] VITALS: BP 152/65; PULSE 51; RESP 15; TEMP 36.2; O2SAT 98; BMI 34.8
[2022-02-23 19:26] LABS: Basophils # 0.1 10^3/uL (0.0-0.1); Basophils % 0.7 %; Eosinophils # 0.3 10^3/uL (0.0-0.8); Eosinophils % 3.5 %; Hematocrit 34.8 % (42.0-52.0); Hemoglobin 11.2 g/dL (11.7-16.6); Lymphocytes # 2.2 10^3/uL (0.8-4.8); Lymphocytes % 27.1 %; Mean Corpuscular HGB Conc 32.2 g/dL (30.0-36.0); Mean Corpuscular Hemoglobin 29.9 pg (28.0-34.0); Mean Platelet Volume 9.4 fL (7.4-10.4); Monocytes # 1.1 10^3/uL (0.2-0.9); Neutrophils # 4.58 10^3/uL (1.8-7.7); Neutrophils % 55.3 %; Nucleated Red Blood Cells % 0 %; Platelet Count 269 10^3/cmm (130-400); Red Blood Count 3.74 10^6/uL (4.1-5.3); Red Cell Distribution Width 13.2 % (12.1-15.1); White Blood Count 8.3 10^3/uL (4.0-10.0)
[2022-02-23 19:53] LABS: Alanine Aminotransferase 15 U/L (0-41); Albumin Level 3.6 g/dL (3.5-5.2); Alkaline Phosphatase 54 U/L (40-130); Anion Gap 17.8 (5-19); Aspartate Amino Transferase 21 U/L (0-40); Blood Urea Nitrogen 80 mg/dL (8-23); Calcium 9.6 mg/dL (8.5-10.5); Carbon Dioxide 22 mmol/L (22-29); Chloride 100 mmol/L (98-107); Globulin 3.7 g/dL (1.3-4.6); Glucose 100 mg/dL (65-115); Osmolality Calculated 304 mOsm/kg (285-295); Potassium 4.8 mmol/L (3.5-5.1); Sodium 135 mmol/L (136-145); Total Bilirubin 0.4 mg/dL (0.15-1.2); Total Protein 7.3 g/dL (6.6-8.7)
--- NOTE | 2022-02-23 20:18 | USR_ITS ---
PROCEDURE INFORMATION: Exam: US Duplex Right Lower Extremity Veins, Limited Exam date and time: 02/23/2022 8:31 PM Age: 81 years old Clinical indication: Edema, localized; Upper extremity, right; Patient HX: Patient states rue edema x 2 days. No known trauma. Patient presenting with two bandages from venipunctures today. ; Additional info: Pain and swelling TECHNIQUE: Imaging protocol: Real-time Duplex ultrasound of the Right Lower Extremity with 2-D honeycutt scale, color Doppler flow and spectral waveform analysis with image documentation. Limited exam was focused on the right lower extremity veins. COMPARISON: No relevant prior studies available. FINDINGS: Right deep veins: Unremarkable. The common femoral, femoral, proximal profunda femoral and popliteal veins are patent without thrombus. Normal Doppler waveforms. Normal compressibility and/or augmentation response. Right superficial veins: Unremarkable. Saphenofemoral junction is patent without thrombus. Soft tissues: Unremarkable. US/[place] [id number] IMPRESSION: No evidence of deep vein thrombosis.
--- NOTE | 2022-02-23 21:49 | CTR_ITS ---
PROCEDURE INFORMATION: Exam: CT Right Upper Extremity Without Contrast, Hand Exam date and time: 02/23/2022 10:05 PM Age: 81 years old Clinical indication: Swelling; Hand; Right; Additional info: Abscess TECHNIQUE: Imaging protocol: Computed tomography of the Right upper extremity without contrast. Exam focused on the hand. Radiation optimization: All CT scans at this facility use at least one of these dose optimization techniques: automated exposure control; mA and/or kV adjustment per patient size (includes targeted exams where dose is matched to clinical indication); or iterative reconstruction. COMPARISON: CR XR hand RT min 3V* [id number] 02/19/2022 11:48 AM RADIATION DOSE METRICS: Total DLP (mGy-cm): 136.68 FINDINGS: Bones/joints: No acute fracture or dislocation. No irregular osseous erosions. Soft tissues: Subcutaneous edema noted along the dorsal aspect of the hand, without walled-off fluid collection/abscess. CT/CT hand RT wo con* [id number] IMPRESSION: Subcutaneous edema along the dorsal aspect of the hand, without evidence of abscess.
--- NOTE | 2022-02-23 21:54 | W.ED.SKABFB ---
HPI - Skin/Abscess/Foreign Bdy General: Chief complaint: Skin/Abscess/Foreign Body Stated complaint: sent for antibiotics Time Seen by Provider: 02/23/22 19:59 History of Present Illness: 81 yo male patient presents to ER with right swollen hand. Patient has been on augmentin and doxy but now has continued to spread up his arm. Pt denies any fever. Pt denies any other copmplaints Associated symptoms: Deny chills, fever(s), nausea or vomiting Review of Systems Const: Denies: fever(s), chills, body aches, change in appetite, change in weight, fatigue, malaise or diaphoresis Eyes: Denies: change in vision, blurry vision, blind spots, photophobia, eye discomfort, eye discharge, eye redness, floaters or seeing flashes ENMT: Denies: throat pain, uvular edema, enlarged tonsils, odynophagia, hoarseness, mouth pain, swelling of lips/tongue, oral sores, bleeding gums, dental pain, dry mouth, ear or mastoid pain, ear discharge, change in hearing, tinnitus, disequilibrium, nasal discharge, nasal congestion, post nasal drip or sinus pain Card: Denies: chest pain, palpitations, irregular heart rhythm, edema, swelling of feet/ankles, lightheadedness, syncope, pre-syncope, dyspnea on exertion, orthopnea, leg pain with exertion or acrocyanosis Resp: Denies: dyspnea, productive cough, non-productive cough, wheezing, stridor, pain on inspiration, change in phlegm color, hemoptysis or chest congestion GI: Denies: abdominal pain, nausea, vomiting, hematemesis, dysphagia, diarrhea, constipation, GI cramping, change in bowel habits or rectal pain : Denies: flank pain, dysuria, urinary frequency, urinary urgency, urinary hesitancy or hematuria Musc: Denies: neck pain, back pain, joint pain, joint swelling, joint redness, joint warmth or deformity Skin/Breast: Denies: rash, pruritus, erythema, sores, new lesions, changes in skin color or dry skin Neuro: Denies: headache(s), numbness in extremities, weakness in extremities, sensory changes, lack of coordination, difficulty walking, frequent falls, dizziness, vertigo, confusion, behavioral changes, Slurred speech present, difficulty communicating thoughts or seizure-like activity Psych: Denies: anxiety, depression, suicidal ideation or homicidal ideation Endo: Denies: polyuria, polydipsia, tired all the time, cold intolerance, excessive sweating, flushing, hot flashes or heat intolerance Travis/Lymph: Denies: easy bruising, easy bleeding, petechiae, purpura, enlarged lymph nodes or tender lymph nodes All/Imm: Denies: urticaria, throat swelling, tongue swelling, facial swelling, acute wheezing or itchy eyes PFSH ED PFSH: Medical History Acquired left ventricular hypertrophy BPH (benign prostatic hyperplasia) Carotid artery disease without cerebral infarction CKD (chronic kidney disease), stage IV COPD (chronic obstructive pulmonary disease) Duodenal ulcer Essential (primary) hypertension Mixed hyperlipidemia Obstructive sleep apnea Type 2 diabetes mellitus with diabetic polyneuropathy, with long-term current use of insulin Surgical History AV fistula H/O esophagogastroduodenoscopy (12/23/20) History of arthroscopy of left shoulder History of colonoscopy with polypectomy 2004 Hx of appendectomy Hx of bilateral cataract extraction Status post colonoscopy (12/23/20) Family History Father Cirrhosis of liver Other Diabetes Social History Smoking and tobacco status: former smoker Second hand smoke exposure: Yes Alcohol intake: former Household members: spouse Marital status: service: Yes branch: [employer] Current occupational status: retired 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 History of recent travel: No Physical Exam Const: COMMON NORMALS: no acute distress, average body habitus, patient oriented x3, no limitations, healthy appearing, alert and well nourished HENMT: THROAT: no uvular edema Neck/C-Spine: COMMON NORMALS: no JVD Resp: COMMON NORMALS: normal respiratory effort, No retractions, No use of accessory muscles, clear to auscultation bilaterally and percussion normal AUSCULTATION: clear to auscultation bilaterally PERCUSSION: percussion normal Cardio: COMMON NORMALS: no JVD, regular rate, regular rhythm, S1 normal heart sound present, S2 normal heart sound present, No gallops present (Cardio), No clicks present (Cardio), No murmurs present (Cardio), No rub (Cardio) and Peripheral pulses 2+ throughout RATE: regular rate RHYTHM: regular rhythm HEART SOUNDS: S1 normal heart sound present and S2 normal heart sound present PERIPHERAL PULSES: Peripheral pulses 2+ throughout Extremity: RIGHT UPPER EXTREMITY: Yes lower arm (tender with palpation and edema) and Yes hand & digits (tender to touch and edema nvi distally) Neuro: COMMON NORMALS: patient oriented x3 SENSORIUM/ORIENTATION: Yes alert Course Vital Signs: Vital signs: Vital Signs Temperature 97.1 F L 02/23/22 15:27 Pulse Rate 51 L 02/23/22 15:27 Respiratory Rate 15 02/23/22 15:27 Blood Pressure 152/65 02/23/22 15:27 Pulse Oximetry 98 02/23/22 15:27 Oxygen Delivery Me thod 02/23/22 15:27 MDM - Skin/Abscess/Foreign Bdy Medicial Decision Making 11 yo male patient presents to ER with right swollen hand. Patient has been on augmentin and doxy but now has continued to spread up his arm. Pt denies any fever. Pt denies any other copmplaints pt has significant edema to right hand but is NVI distally. Pt does not have any tendon shealth tenderness. Given patients failed oral antibiotic treatment pt will be admitted for iv antibiotics at this time Lab Data : 02/23/22 18:41 02/23/22 18:41 Radiology Impressions Venous Duplex 02/23/22 20:18 IMPRESSION: No evidence of deep vein thrombosis. Hand CT 02/23/22 21:49 IMPRESSION: Subcutaneous edema along the dorsal aspect of the hand, without evidence of abscess. Laboratory Results WBC 8.3 10^3/uL (4.0-10.0) 02/23/22 18:41 RBC 3.74 10^6/uL (4.1-5.3) L 02/23/22 18:41 Hgb 11.2 g/dL (11.7-16.6) L 02/23/22 18:41 Hct 34.8 % (42.0-52.0) L 02/23/22 18:41 MCV 93.0 fl (80-94) 02/23/22 18:41 MCH 29.9 pg (28.0-34.0) 10/20/22 18:41 MCHC 32.2 g/dL (30.0-36.0) 02/23/22 18:41 RDW 13.2 % (12.1-15.1) 02/23/22 18:41 Plt Count 269 10^3/cmm (130-400) 02/23/22 18:41 MPV 9.4 fL (7.4-10.4) 02/23/22 18:41 Neut % (Auto) 55.3 % 02/23/22 18:41 Lymph % (Auto) 27.1 % 02/23/22 18:41 [place] % (Auto) 13.0 % 02/23/22 18:41 Eos % (Auto) 3.5 % 02/23/22 18:41 Baso % (Auto) 0.7 % 02/23/22 18:41 Neut # (Auto) 4.58 10^3/uL (1.8-7.7) 02/23/22 18:41 Lymph # (Auto) 2.2 10^3/uL (0.8-4.8) 02/23/22 18:41 [place] # (Auto) 1.1 10^3/uL (0.2-0.9) H 02/23/22 18:41 Eos # (Auto) 0.3 10^3/uL (0.0-0.8) 02/23/22 18:41 Baso # (Auto) 0.1 10^3/uL (0.0-0.1) 02/23/22 18:41 Nucleated RBC % (auto) 0 % 02/23/22 18:41 Nucleated RBCs # 0.0 /100WBC 02/23/22 18:41 Sodium 135 mmol/L (136-145) L 02/23/22 18:41 Potassium 4.8 mmol/L (3.5-5.1) 02/23/22 18:41 Chloride 100 mmol/L (98-107) 02/23/22 18:41 Carbon Dioxide 22 mmol/L (22-29) 02/23/22 18:41 Anion Gap 17.8 (5-19) 02/23/22 18:41 BUN 80 mg/dL (8-23) H 02/23/22 18:41 Creatinine 3.2 mg/dL (0.7-1.2) H 02/23/22 18:41 GFR Calculation Not Reportable 02/23/22 18:41 Glucose 100 mg/dL (65-115) 02/23/22 18:41 Calculated Osmolality 304 mOsm/kg (285-295) H 02/23/22 18:41 Calcium 9.6 mg/dL (8.5-10.5) 02/23/22 18:41 Total Bilirubin 0.4 mg/dL (0.15-1.2) 02/23/22 18:41 AST 21 U/L (0-40) 02/23/22 18:41 ALT 15 U/L (0-41) 02/23/22 18:41 Alkaline Phosphatase 54 U/L (40-130) 02/23/22 18:41 Total Protein 7.3 g/dL (6.6-8.7) 02/23/22 18:41 Albumin 3.6 g/dL (3.5-5.2) 02/23/22 18: Globulin 3.7 g/dL (1.3-4.6) 02/23/22 18:41 Discharge Plan Discharge Condition: Stable Prescriptions: No Action (DME) diabetic shoes See Rx Instructions .Route .MEDSUPPLY Qty: 1 0RF Rx Instructions: As directed acetaminophen 500 mg tablet 500 mg PO TID PRN (Reason: Pain) aspirin [Adult Low Dose Aspirin] 81 mg tablet,delayed release (DR/EC) 81 mg PO DAILY cholecalciferol (vitamin D3) 50 mcg (2,000 unit) capsule 2,000 unit PO DAILY omega-3 fatty acids [Fish Oil Concentrate] 1,000 mg capsule 1,000 mg PO BID (DME) pen needle, diabetic [BD [place] 2nd Gen Pen Needle] 32 gauge x 5/32 needle See Rx Instructions .ROUTE .MEDSUPPLY Qty: 270 3RF Rx Instructions: As directed Lantus Solostar U-100 Insulin 100 unit/mL (3 mL) insulin pen 50 unit SUBCUT QAM Rx Instructions: Inject 50 units subcut in morning and lunch. 40 units at dinner. (DME) Dexcom G6 Machine Compositor Misc See Rx Instructions .Route Qty: 1 0RF Rx Instructions: Check BS 4-6 times a day. (DME) Dexcom G6 Sensor Device See Rx Instructions .Route Qty: 9 3RF Rx Instructions: Change every 10 days. (DME) Dexcom G6 Transmitter Device See Rx Instructions .Route Qty: 3 3RF Rx Instructions: Change every 90 days. losartan 50 mg tablet 50 mg PO BID 90 Days Qty: 180 1RF tamsulosin [Flomax] 0.4 mg capsule 0.4 mg PO QDAY Qty: 90 1RF atorvastatin 40 mg tablet 40 mg PO .qhs Qty: 90 1RF Rx Instructions: At bedtime metoprolol succinate 50 mg tablet extended release 24 hr See Rx Instructions .ROUTE .COMPLEX Qty: 90 1RF Dose Instruction: TAKE 1 TABLET BY MOUTH EVERY DAY Rx Instructions: TAKE 1 TABLET BY MOUTH EVERY DAY insulin aspart U-100 [Novolog Flexpen U-100 Insulin] 100 unit/mL (3 mL) insulin pen 5 unit SUBCUT TID Qty: 15 3RF Rx Instructions: Inject 5 units three times a day 15 minutes before meals. tramadol 50 mg tablet 50 mg PO BID PRN (Reason: pain) 5 Days Qty: 10 0RF doxycycline hyclate 100 mg tablet 100 mg PO BID 7 Days Qty: 14 0RF amoxicillin-pot clavulanate 875-125 mg tablet 1 tab PO BID 7 Days Qty: 14 0RF hydralazine 50 mg tablet 50 mg PO TID Qty: 270 3RF amlodipine 10 mg tablet 10 mg PO DAILY 90 Days Qty: 90 0RF furosemide 40 mg tablet See Rx Instructions .ROUTE .COMPLEX Qty: 180 0RF Dose Instruction: TAKE 1 TABLET BY MOUTH TWICE DAILY Rx Instructions: TAKE 1 TABLET BY MOUTH TWICE DAILY Referrals: Carolyn Tilley DO [Primary Care Provider] - Coding Level of Care Code ED Process Control Specialist for Chg Maikel
[2022-02-23] MEDS: metoprolol tartrate 50 mg Tablet PO (22:21)
[2022-02-23] MEDS: piperacillin-tazobactam 3.375 GM in sodium chloride 0.9% (plus) 50 ML IV (22:35)
[2022-02-23] MEDS: vancomycin 1,000 MG in sodium chloride 0.9% 250 ML 250 MG IV (23:14)
[2022-02-23 23:58] VITALS: BP 145/74; PULSE 55; RESP 16; O2SAT 97
[2022-02-23 23:59] VITALS: BP 145/74; PULSE 55; RESP 16; O2SAT 97
[2022-02-24] VITALS (8 sets, daily range): BP systolic 146–188; BP diastolic 61–73; PULSE 55–69; RESP 17–22; TEMP 36.4–37.3; O2SAT 93–99; BMI 34.9
--- NOTE | 2022-02-24 00:25 | PM.HP ---
Providers/Chief Complaint Admitting Physician: Bee Centeno MD Primary Care Provider: Carolyn Tilley DO Chief Complaint: sent for antibiotics History of Present Illness Geovanny Lujan is a 81 year old male with PMH DM, HTN, who developed right hand swelling approximately one month ago. Patient does not recall any trauma to the site prior to onset of symptoms. Patient describes the onset of symptoms as sudden.states that swelling has been progressively increasing. Denies any erythema. States that now it is becoming very difficult to flex his fingers. No fever or chills. He has been visiting with his primary care provider as outpatient and was given Augmentin and doxycycline which she is taken for 5 days at this point without any relief in symptoms. Alternate differentials as outpatient had included gout, however he is unable to take any NSAIDs due to his CKD, baseline creatinine of around 3. He has not had any steroids. Of note patient has a history of ganglion cyst on the right hand fourth digit, which is also the digit where he states that he has maximal pain. The cyst itself appears to have reduced since onset of his symptoms. He has no pets at home, however has some feral cats on his property. Denies any animal bites or scratches. Review of Systems General: Reports: 10 or more systems reviewed and unremarkable except in HPI and below Const: Denies: fever(s), chills or body aches Eyes: Denies: change in vision, blurry vision or photophobia ENMT: Reports: hoarseness; Denies: throat pain, enlarged tonsils, odynophagia or nasal congestion Card: Denies: chest pain, palpitations, irregular heart rhythm, edema, swelling of feet/ankles, lightheadedness, pre-syncope, dyspnea on exertion or orthopnea Resp: Denies: dyspnea, productive cough, non-productive cough, wheezing, stridor, pain on inspiration, change in phlegm color, hemoptysis or chest congestion GI: Denies: abdominal pain, nausea, vomiting, hematemesis, coffee ground emesis, dysphagia, heartburn, diarrhea, constipation, GI cramping, change in stool character, hematochezia or melena : Denies: flank pain, dysuria, urinary frequency, urinary urgency, urinary hesitancy or hematuria Musc: Denies: neck pain, back pain, extremity pain, joint swelling, joint warmth or deformity Neuro: Denies: headache(s), numbness in extremities, weakness in extremities, sensory changes, difficulty walking, frequent falls, dizziness, vertigo, behavioral changes, Slurred speech present or seizure-like activity Psych: Denies: anxiety, depression, suicidal ideation or homicidal ideation Endo: Denies: polyuria, polydipsia, tired all the time, cold intolerance or hot flashes Travis/Lymph: Denies: easy bruising or easy bleeding Medications/Allergies Home Medications Medication Instructions Recorded Confirmed Last Taken Type aspirin 81 mg tablet,delayed 81 mg PO DAILY 06/17/19 02/23/22 1 Day Ago History release (Adult Low Dose Aspirin) ~12/22/20 cholecalciferol (vitamin D3) 50 2,000 unit PO DAILY 06/17/19 02/23/22 1 Day Ago History mcg (2,000 unit) capsule ~12/22/20 diabetic shoes #1 ea 12/16/19 02/23/22 Unknown Rx acetaminophen 500 mg tablet 500 mg PO TID PRN Pain 03/24/20 02/23/22 1 Day Ago History ~12/22/20 pen needle, diabetic 32 gauge x #270 ea 08/02/20 02/23/22 Unknown Rx (BD [place] 2nd Gen Pen Needle) omega-3 fatty acids 1,000 mg 1,000 mg PO BID 12/31/20 02/23/22 Unknown History capsule (Fish Oil Concentrate) hydralazine 50 mg tablet 50 mg PO TID #270 tabs 10/18/21 02/23/22 Unknown Rx insulin aspart U-100 100 unit/mL 5 unit (0.05 mL) SUBCUT TID #15 mL 10/28/21 02/23/22 Unknown Rx (3 mL) subcutaneous pen (Novolog Flexpen U-100 Insulin aspart) atorvastatin 40 mg tablet 40 mg PO .qhs #90 tabs 12/13/21 02/23/22 Unknown Rx blood-glucose meter,continuous #1 ea 12/13/21 02/23/22 Unknown Rx (Dexcom G6 Field Pipelines Supervisor misc) blood-glucose sensor (Dexcom G6 #9 ea 12/13/21 02/23/22 Unknown Rx Sensor device) blood-glucose transmitter (Dexcom #3 ea 12/13/21 02/23/22 Unknown Rx G6 Transmitter device) insulin glargine 100 unit/mL (3 50 unit SUBCUT QAM 12/13/21 02/23/22 Unknown History mL) subcutaneous pen (Lantus Solostar U-100 Insulin) losartan 50 mg tablet 50 mg PO BID 90 days #180 tabs 12/13/21 02/23/22 Unknown Rx metoprolol succinate 50 mg See Rx Instructions .Route 12/13/21 02/23/22 Unknown Rx tablet,extended release 24 hr .COMPLEX #90 tabs tamsulosin 0.4 mg capsule (Flomax) 0.4 mg PO QDAY #90 caps 12/13/21 02/23/22 Unknown Rx amlodipine 10 mg tablet 10 mg PO DAILY 90 days #90 tabs 01/12/22 02/23/22 Unknown Rx furosemide 40 mg tablet See Rx Instructions .Route 02/07/22 02/23/22 Unknown Rx .COMPLEX #180 tabs amoxicillin 875 mg-potassium 1 tab PO BID 7 days #14 tabs 02/19/22 02/23/22 Unknown Rx clavulanate 125 mg tablet doxycycline hyclate 100 mg tablet 100 mg PO BID 7 days #14 tabs 02/19/22 02/23/22 Unknown Rx tramadol 50 mg tablet 50 mg PO BID PRN pain 5 days #10 02/19/22 02/23/22 Unknown Rx tabs Allergies Allergy/AdvReac Type Severity Reaction Status Date / Time No Known Allergies Allergy Verified 02/23/22 13:31 PFSH Acute PFSH: Medical History Acquired left ventricular hypertrophy BPH (benign prostatic hyperplasia) Carotid artery disease without cerebral infarction CKD (chronic kidney disease), stage IV COPD (chronic obstructive pulmonary disease) Duodenal ulcer Essential (primary) hypertension Mixed hyperlipidemia Obstructive sleep apnea Type 2 diabetes mellitus with diabetic polyneuropathy, with long-term current use of insulin Surgical History AV fistula H/O esophagogastroduodenoscopy (12/23/20) History of arthroscopy of left shoulder History of colonoscopy with polypectomy 2004 Hx of appendectomy Hx of bilateral cataract extraction Status post colonoscopy (12/23/20) Family History Father Cirrhosis of liver Other Diabetes Social History Smoking and tobacco status: former smoker Second hand smoke exposure: Yes Alcohol intake: former Household members: spouse Marital status: service: Yes branch: [employer] Current occupational status: retired 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 of 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 travel: No Vitals/I&O/Wt Last Vital Signs Temp 97.1 F L 02/23/22 15:27 Pulse 55 L 02/23/22 23:59 Resp 16 02/23/22 23:59 BP 145/74 02/23/22 23:59 Pulse Ox 97 02/23/22 23:59 O2 Del Method 02/23/22 23:58 02/23/22 02/23/22 02/24/22 14:59 22:59 06:59 Intake Total 50 / 50 Balance 50 / 50 Weight last 48 hrs Weight 113.398 kg Physical Exam Narrative: General: No acute distress, AO x3 HEENT: PERRLA, pupils bilaterally equal and reactive, pallors not present Chest: Normal vesicular breath sounds, no added sounds, equal good air entry bilaterally CVS: S1-S2 regular, no murmurs, no tachycardia, no gallops, no rubs Abdomen: Soft, nontender, no organomegaly, bowel sounds present Neuro: No focal deficits, no facial deformity, AO x3, power 5/5 in all limbs Extremities: Right hand diffuse swelling involving all digits, dorsum and palmar aspect of the hand. Changes do not extend beyond the wrist level currently. He has difficulty flexing his fingers. Slightly more prominent distal interphalangeal joint on the fourth digit. No gross erythema. Data : 02/23/22 18:41 02/23/22 18:41 Other Labs: Radiology Impressions Venous Duplex 02/23/22 20:18 IMPRESSION: No evidence of deep vein thrombosis. Hand CT 02/23/22 21:49 IMPRESSION: Subcutaneous edema along the dorsal aspect of the hand, without evidence of abscess. Laboratory Results WBC 8.3 10^3/uL (4.0-10.0) 02/23/22 18:41 RBC 3.74 10^6/uL (4.1-5.3) L 02/23/22 18:41 Hgb 11.2 g/dL (11.7-16.6) L 02/23/22 18:41 Hct 34.8 % (42.0-52.0) L 02/23/22 18:41 MCV 93.0 fl (80-94) 02/23/22 18:41 MCH 29.9 pg (28.0-34.0) 02/23/22 18:41 MCHC 32.2 g/dL (30.0-36.0) 02/23/22 18:41 RDW 13.2 % (12.1-15.1) 02/23/22 18:41 Plt Count 269 10^3/cmm (130-400) 02/23/22 18:41 MPV 9.4 fL (7.4-10.4) 02/23/22 18:41 Neut % (Auto) 55.3 % 02/23/22 18:41 Lymph % (Auto) 27.1 % 02/23/22 18:41 [place] % (Auto) 13.0 % 02/23/22 18:41 Eos % (Auto) 3.5 % 02/23/22 18:41 Baso % (Auto) 0.7 % 02/23/22 18:41 Neut # (Auto) 4.58 10^3/uL (1.8-7.7) 02/23/22 18:41 Lymph # (Auto) 2.2 10^3/uL (0.8-4.8) 02/23/22 18:41 [place] # (Auto) 1.1 10^3/uL (0.2-0.9) H 02/23/22 18:41 Eos # (Auto) 0.3 10^3/uL (0.0-0.8) 02/23/22 18:41 Baso # (Auto) 0.1 10^3/uL (0.0-0.1) 02/23/22 18:41 Nucleated RBC % (auto) 0 % 02/23/22 18:41 Nucleated RBCs # 0.0 /100WBC 02/23/22 18:41 Sodium 135 mmol/L (136-145) L 02/23/22 18:41 Potassium 4.8 mmol/L (3.5-5.1) 02/23/22 18:41 Chloride 100 mmol/L (98-107) 02/23/22 18:41 Carbon Dioxide 22 mmol/L (22-29) 02/23/22 18:41 Anion Gap 17.8 (5-19) 02/23/22 18:41 BUN 80 mg/dL (8-23) H 02/23/22 18:41 Creatinine 3.2 mg/dL (0.7-1.2) H 02/23/22 18:41 GFR Calculation Not Reportable 02/23/22 18:41 Glucose 100 mg/dL (65-115) 02/23/22 18:41 POC Glucose 82 mg/dL (70-110) 02/24/22 06:26 Calculated Osmolality 304 mOsm/kg (285-295) H 02/23/22 18:41 Calcium 9.6 mg/dL (8.5-10.5) 02/23/22 18:41 Total Bilirubin 0.4 mg/dL (0.15-1.2) 02/23/22 18:41 AST 21 U/L (0-40) 02/23/22 18:41 ALT 15 U/L (0-41) 02/23/22 18:41 Alkaline Phosphatase 54 U/L (40-130) 02/23/22 18:41 Total Protein 7.3 g/dL (6.6-8.7) 02/23/22 18:41 Albumin 3.6 g/dL (3.5-5.2) 02/23/22 18:41 Globulin 3.7 g/dL (1.3-4.6) 02/23/22 18:41 Micro: Microbiology 02/23/22 18:46 Blood Culture - Preliminary Blood SPECIMEN COLLECTED 02/23/22 18:41 Blood Culture - Preliminary Blood SPECIMEN COLLECTED A&P Assessment and plan (1) Hand swelling: Patient presenting with hand swelling of about 1 week duration without any precipitating trauma, no significant improvement with oral outpatient antibiotics. Differential diagnosis at this time include inflammatory arthritis versus tenosynovitis, suspect may be related to underlying gout. Cellulitis does remain on the differential, however it is appearing to be less likely given that he has no constitutional symptoms such as fever chills. No leukocytosis. No antecedent trauma. No history of lymphedema on that hand. CT of his hand Did not show any acute fracture or dislocation. No irregular osseous erosions. Subcutaneous edema was noted along the distal dorsal aspect of the hand without any walled off collections or abscesses. Will obtain blood cultures. Empirically cover with piperacillin tazobactam and vancomycin while undergoing infection work-up. If no significant improvement with broadening antibiotics spectrum, would favor inflammatory etiology. Obtain baseline ESR CRP. Trial of prednisone 40 mg p.o. daily for 3 days for suspected inflammatory etiology. Qualifiers: Laterality: right Qualified Code(s): M79.89 - Other specified soft tissue disorders Plan Diabetes mellitus: Insulin sliding scale Hypertension: Continue home doses of amlodipine, hydralazine, metoprolol. Holding losartan for now given creatinine of 3.2. Continue other home medications including aspirin and atorvastatin. Attestations Medical Necessity Statement*: Anticipate greater than 2 midnight admission for evaluation of right hand swelling, inflammatory versus infectious at this time on the differential, pending further assessment, no relief with outpatient treatment over the past week. Coding Level of Care Code Acute Work Ticket Distributor for Juancarlos Ko Diagnoses Hand swelling M79.89 Laterality: right
--- NOTE | 2022-02-24 00:58 | PC.PHAR ---
Pharmacokinetic dosing service Date: 02/24/22 Time: 99 Objective: Patient: Geovanny Lujan Floor: 260-1 Age: 81 yo Serum creatinine: 3.2 mg/dL Height: 71.0 Inches Weight (kg): 113.398 Diagnosis: Relevant medical/social history: Cultures and sensitivities: Other labs: Assessment: IBW (kg): 75.30 Dosing wt(kg): 90.5 Estimated Creatinine clearance (ml/min): 19.9 CRCL method: Cockcroft and Gault using ibw(default). Drug selected: Vancomycin Loading dose (mg): 0 Vd (liters): 81.5 (factor used: 0.9 L/kg) Saw (hr-1): 0.021 Half life (hrs): 33.01 Recommended dose: 1500 mg Interval: 36 hrs Infusion time (hrs): 1.5 Predicted peak (mcg/mL): 34.2 Predicted trough (mcg/mL): 16.57 Adjusted body weight was selected for vancomycin dosing. To switch back, select the total body weight option above. Renal function is stable [ ] /unstable [ ] Recommendations: Give Vancomycin 1500 mg q 36 hrs with an expected Cpeak of 34.2 mcg/ml and an expected Ctrough of 16.57 mcg/ml Renal dosing of other antibiotics (review renal dosing of other medications and list guidelines here): Thank you for the consult, will continue to follow. Signature: Afia Oviedo [facility]
[2022-02-24] MEDS: atorvastatin 40 mg Tablet PO ×2 (01:33→21:26)
[2022-02-24] MEDS: heparin 5,000 unit/mL INJ 1 mL 5000 UNIT SUBCUT ×2 (01:33→11:54)
[2022-02-24 06:29] LABS: Glucose Point of Care 82 mg/dL (70-110)
[2022-02-24 08:44] LABS: Erythrocyte Sedimentation Rate 48 mm/hr (0-10)
[2022-02-24] MEDS: hyDRALAzine 50 mg Tablet PO ×3 (09:01→21:26)
[2022-02-24] MEDS: aspirin 81 mg EC Tablet PO (09:01)
[2022-02-24] MEDS: predniSONE 20 mg Tablet 40 MG PO (09:01)
[2022-02-24] MEDS: tamsulosin 0.4 mg Capsule PO (09:01)
[2022-02-24] MEDS: acetaminophen 325 mg Tablet 650 MG PO (09:01)
[2022-02-24] MEDS: insulin glargine 100 units/1 mL 50 UNIT SUBCUT (09:02)
[2022-02-24] MEDS: amlodipine 10 mg Tablet PO (09:02)
[2022-02-24 09:08] LABS: C Reactive Protein 15.1 mg/L (0.0-4.9)
[2022-02-24 09:24] LABS: Uric Acid 11.6 mg/dL (3.4-7.0)
[2022-02-24 09:31] LABS: Procalcitonin 0.09 ng/mL (0-0.5)
--- NOTE | 2022-02-24 10:15 | PC.CHAP ---
Pastoral Care Encounter/Spiritual Assessment Type of Contact [] Declined employee wellness/fitness coordinator visit [] Patient/Family/Request visit [] Outpatient visit [] Follow-up visit [] Physician referral [] Code/Alert [x] Routine visit [] Staff referral [] Actively dying [] Patient sleeping [] Family support [] [] Out of room [] Palliative care [] [] Receiving care in room [] Pre-surgical visit [] Trauma [] Long length of stay [] ICU visit [] Other: Relational/Emotional Strength [x] Patient feels connected with others/family/visitors/staff [] Distress [] Loneliness/isolation [] Abandonment Spirituality of Patient [x] Person of Nicole [] Attends Sikh of their Nicole [x] Believes in Prayer [] Reads Bible or Jewish materials [] There are Spiritual issues to be addressed Selling Underwriter Interventions [x] Prayer x[] Active listening [x] Non-anxious presence [x] Spiritual/emotional support [] Crisis/trauma care [] Spiritual counseling [] Bereavement support [] Provided bereavement packet [] Provided Bible/devotional materials [] Provided toy/stuffed animal, coloring book to patient or family member [] Provided Communion [] Anointing/[place] [] Salvation [x] Completed spiritual assessment [] Other: Impact on Illness or Injury [] Angry [] Fearful [] Anxious [] Often cries [] Exhaustion [] Unable to work [] Unable to attend denominational [] Unable to walk/stand [] Unable to read [] Unable to drive [] Unable to eat/drink [] Unable to sleep [] Unable to be with family [] Patient intubated [] Other: Summary Time spent with patient 10 min
[2022-02-24 11:43] LABS: Creatine Phosphokinase 205 U/L (39-308)
[2022-02-24] MEDS: piperacillin-tazobactam 3.375 GM in sodium chloride 0.9% (plus) 50 ML IV (11:54)
--- NOTE | 2022-02-24 13:35 | P.PN_ITS ---
Subjective Subjective: Patient was seen this morning, he feels a bit better, continues to have right hand swelling, no erythema, no point tenderness, no fevers, Vitals/I&O/Wt Last Vital Signs Temp 99.2 F 02/24/22 12:00 Pulse 61 02/24/22 12:00 Resp 17 02/24/22 12:00 BP 178/69 02/24/22 12:00 Pulse Ox 93 02/24/22 12:00 O2 Del Method 02/24/22 12:00 02/23/22 02/24/22 02/24/22 22:59 06:59 14:59 Intake Total 290 / 290 240 / 240 Output Total 0 / 0 Balance 290 / 290 240 / 240 Weight last 48 hrs Weight 111.221 kg Weight 113.455 kg Weight 113.398 kg Physical Exam Const: COMMON NORMALS: no acute distress and patient oriented x3 Resp: COMMON NORMALS: normal respiratory effort, No retractions, No use of accessory muscles and clear to auscultation bilaterally AUSCULTATION: clear to auscultation bilaterally Cardio: COMMON NORMALS: regular rate, regular rhythm, S1 normal heart sound present and S2 normal heart sound present RATE: regular rate RHYTHM: regular rhythm HEART SOUNDS: S1 normal heart sound present and S2 normal heart sound present GI: COMMON NORMALS: Normal to inspection, nondistended, normoactive bowel sounds present and non-tender Extremity: COMMON NORMALS: no pedal edema NARRATIVE EXTREMITY EXAM: Right hand, diffuse swelling, no point tenderness, no significant erythema, has good radial pulse Neuro: COMMON NORMALS: patient oriented x3 Psych: COMMON NORMALS: mental status grossly normal Data : 02/23/22 18:41 02/23/22 18:41 Micro: Microbiology 02/23/22 18:46 Blood Culture - Preliminary Blood SPECIMEN COLLECTED 02/23/22 18:41 Blood Culture - Preliminary Blood SPECIMEN COLLECTED A&P Assessment and plan (1) Hand swelling: Patient presenting with hand swelling of about 1 week duration without any precipitating trauma, no significant improvement with oral outpatient antibiotics. Differential diagnosis at this time include inflammatory arthritis versus tenosynovitis, suspect may be related to underlying gout. Cellulitis does remain on the differential, however it is appearing to be less likely given that he has no constitutional symptoms such as fever chills. No leukocytosis. No antecedent trauma. No history of lymphedema on that hand. CT of his hand Did not show any acute fracture or dislocation. No irregular osseous erosions. Subcutaneous edema was noted along the distal dorsal aspect of the hand without any walled off collections or abscesses. Will obtain blood cultures. Empirically cover with piperacillin tazobactam and vancomycin while undergoing infection work-up. If no significant improvement with broadening antibiotics spectrum, would favor inflammatory etiology. Obtain baseline ESR 48 CRP. 15, Pro-Jose 0.09 Trial of prednisone 40 mg p.o. daily for 3 days for suspected inflammatory etiology. Qualifiers: Laterality: right Qualified Code(s): M79.89 - Other specified soft tissue disorders Plan Diabetes mellitus: Insulin sliding scale Hypertension: Continue home doses of amlodipine, hydralazine, metoprolol. Holding losartan for now given creatinine of 3.2. Continue other home medications including aspirin and atorvastatin. 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
[2022-02-24 16:21] LABS: Glucose Point of Care 321 mg/dL (70-110)
[2022-02-24] MEDS: insulin lispro 100 unit/1 mL SUBCUT ×3 (16:34→21:28)
[2022-02-24 17:04] LABS: Glucose Point of Care 322 mg/dL (70-110)
[2022-02-24 18:38] LABS: Glucose Point of Care 369 mg/dL (70-110)
[2022-02-24 20:29] LABS: Glucose Point of Care 314 mg/dL (70-110)
[2022-02-25] VITALS: BP 121/61; PULSE 61; RESP 18; TEMP 36.7; O2SAT 95
[2022-02-25] MEDS: piperacillin-tazobactam 3.375 GM in sodium chloride 0.9% (plus) 50 ML IV (00:29)
[2022-02-25] MEDS: heparin 5,000 unit/mL INJ 1 mL 5000 UNIT SUBCUT (00:30)
[2022-02-25 04:00] VITALS: BP 142/69; PULSE 56; RESP 18; TEMP 36.4; O2SAT 94
[2022-02-25 04:43] LABS: Basophils % 0.2 %; Eosinophils % 0.1 %; Hematocrit 30.2 % (42.0-52.0); Lymphocytes # 1.3 10^3/uL (0.8-4.8); Lymphocytes % 15.6 %; Mean Corpuscular HGB Conc 33.1 g/dL (30.0-36.0); Mean Corpuscular Hemoglobin 30.3 pg (28.0-34.0); Mean Corpuscular Volume 91.5 fl (80-94); Mean Platelet Volume 9.7 fL (7.4-10.4); Monocytes # 1.1 10^3/uL (0.2-0.9); Monocytes % 12.7 %; Neutrophils # 5.92 10^3/uL (1.8-7.7); Neutrophils % 70.9 %; Nucleated Red Blood Cells % 0 %; Platelet Count 226 10^3/cmm (130-400); Red Cell Distribution Width 13.1 % (12.1-15.1); White Blood Count 8.4 10^3/uL (4.0-10.0)
[2022-02-25 05:10] LABS: Alanine Aminotransferase 13 U/L (0-41); Albumin Level 3.3 g/dL (3.5-5.2); Alkaline Phosphatase 45 U/L (40-130); Anion Gap 16.9 (5-19); Aspartate Amino Transferase 17 U/L (0-40); Blood Urea Nitrogen 79 mg/dL (8-23); Calcium 9.2 mg/dL (8.5-10.5); Carbon Dioxide 22 mmol/L (22-29); Chloride 102 mmol/L (98-107); Globulin 2.9 g/dL (1.3-4.6); Glucose 129 mg/dL (65-115); Osmolality Calculated 307 mOsm/kg (285-295); Potassium 4.9 mmol/L (3.5-5.1); Sodium 136 mmol/L (136-145); Total Bilirubin 0.4 mg/dL (0.15-1.2); Total Protein 6.2 g/dL (6.6-8.7)
[2022-02-25 05:53] VITALS: PULSE 57
[2022-02-25 06:21] LABS: Glucose Point of Care 134 mg/dL (70-110)
[2022-02-25 07:52] VITALS: BP 167/69; PULSE 56; RESP 16; TEMP 36.6; O2SAT 90
[2022-02-25] MEDS: aspirin 81 mg EC Tablet PO (08:15)
[2022-02-25] MEDS: tamsulosin 0.4 mg Capsule PO (08:16)
[2022-02-25] MEDS: pantoprazole DR 40 mg Tablet PO (08:16)
[2022-02-25] MEDS: predniSONE 20 mg Tablet 40 MG PO (08:16)
[2022-02-25] MEDS: hyDRALAzine 50 mg Tablet PO (08:19)
[2022-02-25] MEDS: amlodipine 10 mg Tablet PO (08:19)
[2022-02-25] MEDS: insulin glargine 100 units/1 mL 50 UNIT SUBCUT (08:40)
[2022-02-25] MEDS: vancomycin 1,500 MG/300 ML PIGGYBACK 200 MG IV (11:03)
--- NOTE | 2022-02-25 11:05 | PM.DCS ---
Discharge Providers Date of Admission: 02/24/22 00:11 Date of Discharge: February 25, 2022 Attending Provider at Admission: Bee Centeno MD Attending Provider at Discharge: Sudheer Christie MD Primary Care Provider: Carolyn Tilley DO Diagnoses at Discharge Discharge Diagnosis (1) Hand swelling: Status: Acute Qualifiers: Laterality: right Qualified Code(s): M79.89 - Other specified soft tissue disorders Reason for Visit Reason for Visit: sent for antibiotics Hospital Course Hospital Course This is a 81-year-old male with a past medical history of hypertension, hyperlipidemia, insulin-dependent type 2 diabetes mellitus, COPD, who presents to [facility] due to right hand swelling Patient presented to [facility] for right hand swelling, with failure of outpatient antibiotic therapy, no significant trauma, no significant infectious concerns as there is no significant erythema or fevers, CT showed diffuse swelling, nonetheless was managed with broad-spectrum antibiotic therapy for 48 hours, cultures remain unremarkable, he remains afebrile, antibiotic therapy was discontinued. Patient's uric acid levels were elevated, he does have chronic kidney disease, likely the etiology behind his right hand swelling is acute gouty attack and or inflammatory arthritis. Given his chronic kidney disease, NSAIDs were not a real good option. Thus patient was managed with prednisone for 48 hours, overall his right hand swelling significantly improved, range of motion improved, will be discharged on 3 remaining days of prednisone with a follow-up with primary care and rheumatology as outpatient. Given his prednisone use, his blood sugars were elevated during his hospitalization, discharged with a sliding scale as below. -Please monitor your blood sugars closely -Monitor your blood sugars 3 times daily as after meals -Please record your blood sugars, and a blood sugar log -For your NovoLog -Please inject blood sugar after meals based on sliding scale provided -Do not inject insulin if you do not eat as hypoglycemia kills -This is a NovoLog sliding scale -Insulin sliding fingerstick? Insulin 141-180?2 units/sq 181-220?4 units/sq 221-260?6 units/sq 261-300?8 units/sq 301-350 10 units/sq 351-400 12 units/sq > 400? 14 units/sq -If your blood sugar is greater than 500 go to the emergency room -If your blood sugar is less than 60 or at anytime you feel lightheaded or dizzy or diaphoretic or have chest palpitations check your blood sugar, and eat a hard candy or drink orange juice and go immediately to the emergency room -Remember hypoglycemia kills, so if his blood sugar is less than 60 we have to increase it by taking in a sugary meal such as a hard candy or orange juice and go to the emergency room -If you have any questions please call us where here to help - Physical Exam Const: COMMON NORMALS: no acute distress and patient oriented x3 Resp: COMMON NORMALS: normal respiratory effort, No retractions, No use of accessory muscles and clear to auscultation bilaterally AUSCULTATION: clear to auscultation bilaterally Cardio: COMMON NORMALS: regular rate, regular rhythm, S1 normal heart sound present and S2 normal heart sound present RATE: regular rate RHYTHM: regular rhythm HEART SOUNDS: S1 normal heart sound present and S2 normal heart sound present GI: COMMON NORMALS: Normal to inspection, nondistended, normoactive bowel sounds present and non-tender Extremity: COMMON NORMALS: no pedal edema NARRATIVE EXTREMITY EXAM: Right hand swelling, significantly improved Neuro: COMMON NORMALS: patient oriented x3 Psych: COMMON NORMALS: mental status grossly normal Discharge Data Studies Completed and Pending Completed Studies During Hospitalization Category Date Time Status CT hand RT wo con* [id number] Stat Cat Scan 02/23/22 21:49 Completed US venous duplex upper extremity RT [CV venous duplex Ultrasound 02/23/22 20:18 [place] [id number]] Stat Pending at discharge Category Date Time Status Blood Culture Stat Lab 02/23/22 18:46 Results Radiology Impressions Venous Duplex 02/23/22 20:18 IMPRESSION: No evidence of deep vein thrombosis. ADDENDUM: 02/24/22 1153 IMPRESSION: No evidence of deep vein thrombosis. Hand CT 02/23/22 21:49 IMPRESSION: Subcutaneous edema along the dorsal aspect of the hand, without evidence of abscess. Laboratory Results WBC 8.4 10^3/uL (4.0-10.0) 02/25/22 03:34 RBC 3.30 10^6/uL (4.1-5.3) L 02/25/22 03:34 Hgb 10.0 g/dL (11.7-16.6) L 02/25/22 03:34 Hct 30.2 % (42.0-52.0) L 02/25/22 03:34 MCV 91.5 fl (80-94) 02/25/22 03:34 MCH 30.3 pg (28.0-34.0) 02/25/22 03:34 MCHC 33.1 g/dL (30.0-36.0) 02/25/22 03:34 RDW 13.1 % (12.1-15.1) 02/25/22 03:34 Plt Count 226 10^3/cmm (130-400) 02/25/22 03:34 MPV 9.7 fL (7.4-10.4) 02/25/22 03:34 Neut % (Auto) 70.9 % 02/25/22 03:34 Lymph % (Auto) 15.6 % 02/25/22 03:34 Mitchell % (Auto) 12.7 % 02/25/22 03:34 Eos % (Auto) 0.1 % 02/25/22 03:34 Baso % (Auto) 0.2 % 02/25/22 03:34 Neut # (Auto) 5.92 10^3/uL (1.8-7.7) 02/25/22 03:34 Lymph # (Auto) 1.3 10^3/uL (0.8-4.8) 02/25/22 03:34 Mitchell # (Auto) 1.1 10^3/uL (0.2-0.9) H 02/25/22 03:34 Eos # (Auto) 0.0 10^3/uL (0.0-0.8) 02/25/22 03:34 Baso # (Auto) 0.0 10^3/uL (0.0-0.1) 02/25/22 03:34 Nucleated RBC % (auto) 0 % 02/25/22 03:34 Nucleated RBCs # 0.0 /100WBC 02/25/22 03:34 ESR 48 mm/hr (0-10) H 02/24/22 08:14 Sodium 136 mmol/L (136-145) 02/25/22 03:34 Potassium 4.9 mmol/L (3.5-5.1) 02/25/22 03:34 Chloride 102 mmol/L (98-107) 02/25/22 03:34 Carbon Dioxide 22 mmol/L (22-29) 02/25/22 03:34 Anion Gap 16.9 (5-19) 02/25/22 03:34 BUN 79 mg/dL (8-23) H 02/25/22 03:34 Creatinine 3.1 mg/dL (0.7-1.2) H 02/25/22 03:34 GFR Calculation Not Reportable 02/25/22 03:34 Glucose 129 mg/dL (65-115) H 02/25/22 03:34 POC Glucose 134 mg/dL (70-110) H 02/25/22 06:14 Calculated Osmolality 307 mOsm/kg (285-295) H 02/25/22 03:34 Uric Acid 11.6 mg/dL (3.4-7.0) H 02/24/22 08:14 Calcium 9.2 mg/dL (8.5-10.5) 02/25/22 03:34 Total Bilirubin 0.4 mg/dL (0.15-1.2) 02/25/22 03:34 AST 17 U/L (0-40) 02/25/22 03:34 ALT 13 U/L (0-41) 02/25/22 03:34 Alkaline Phosphatase 45 U/L (40-130) 02/25/22 03:34 Creatine Kinase 205 U/L (39-308) 02/24/22 08:14 C-Reactive Protein 15.1 mg/L (0.0-4.9) H 02/24/22 08:14 Total Protein 6.2 g/dL (6.6-8.7) L 02/25/22 03:34 Albumin 3.3 g/dL (3.5-5.2) L 02/25/22 03:34 Globulin 2.9 g/dL (1.3-4.6) 02/25/22 03:34 Procalcitonin 0.09 ng/mL (0-0.5) 02/24/22 08:14 Vitals Last Vital Signs Temp 97.9 F 02/25/22 07:52 Pulse 56 L 02/25/22 07:52 Resp 16 02/25/22 07:52 BP 167/69 02/25/22 07:52 Pulse Ox 90 02/25/22 07:52 O2 Del Method 02/25/22 07:52 Discharge Plan Discharge Patient Disposition: Home Condition: Stable Prescriptions: New prednisone 20 mg Tablet 40 mg PO DAILY 3 Days Qty: 6 0RF Continued (DME) diabetic shoes See Rx Instructions .Route .MEDSUPPLY Qty: 1 0RF Rx Instructions: As directed acetaminophen 500 mg tablet 500 mg PO TID PRN (Reason: Pain) aspirin [Adult Low Dose Aspirin] 81 mg tablet,delayed release (DR/EC) 81 mg PO DAILY cholecalciferol (vitamin D3) 50 mcg (2,000 unit) capsule 2,000 unit PO DAILY (DME) pen needle, diabetic [BD Chelsea 2nd Gen Pen Needle] 32 gauge x 5/32 needle See Rx Instructions .ROUTE .MEDSUPPLY Qty: 270 3RF Rx Instructions: As directed Lantus Solostar U-100 Insulin 100 unit/mL (3 mL) insulin pen 60 unit SUBCUT QAM Rx Instructions: Inject 60 units subcut in morning and lunch. 40 units at dinner. (DME) Dexcom G6 Embedded Engineer Misc See Rx Instructions .Route Qty: 1 0RF Rx Instructions: Check BS 4-6 times a day. (DME) Dexcom G6 Sensor Device See Rx Instructions .Route Qty: 9 3RF Rx Instructions: Change every 10 days. (DME) Dexcom G6 Transmitter Device See Rx Instructions .Route Qty: 3 3RF Rx Instructions: Change every 90 days. losartan 50 mg tablet 50 mg PO BID 90 Days Qty: 180 1RF tamsulosin [Flomax] 0.4 mg capsule 0.4 mg PO QDAY Qty: 90 1RF atorvastatin 40 mg tablet 40 mg PO .qhs Qty: 90 1RF Rx Instructions: At bedtime metoprolol succinate 50 mg tablet extended release 24 hr See Rx Instructions .ROUTE .COMPLEX Qty: 90 1RF Dose Instruction: TAKE 1 TABLET BY MOUTH EVERY DAY Rx Instructions: TAKE 1 TABLET BY MOUTH EVERY DAY hydralazine 50 mg tablet 50 mg PO TID Qty: 270 3RF amlodipine 10 mg tablet 10 mg PO DAILY 90 Days Qty: 90 0RF Fish Oil 300-1,000 mg Capsule 1 cap PO DAILY diphenhydramine HCl 50 mg Tablet 100 mg PO QPM PRN (Reason: Sleep) tramadol 50 mg tablet 50 mg PO BID PRN (Reason: pain) 5 Days Qty: 10 0RF Changed insulin aspart U-100 [Novolog Flexpen U-100 Insulin] 100 unit/mL (3 mL) insulin pen See Rx Instructions .ROUTE .COMPLEX Qty: 15 3RF Rx Instructions: Inject 3 times daily, subcu, after meals, based on sliding scale provided Held furosemide 40 mg tablet See Rx Instructions .ROUTE .COMPLEX Qty: 180 0RF Hold Instructions: Resume on 03/06/22. hold until you see primary care and repeat kidney function Dose Instruction: TAKE 1 TABLET BY MOUTH TWICE DAILY Rx Instructions: TAKE 1 TABLET BY MOUTH TWICE DAILY Discontinued doxycycline hyclate 100 mg tablet 100 mg PO BID 7 Days Qty: 14 0RF amoxicillin-pot clavulanate 875-125 mg tablet 1 tab PO BID 7 Days Qty: 14 0RF Discharge Orders: Discharge Order (Routine); Ordered 02/25/22 Ordered By: Sudheer Christie Referrals: Johnny Connor MD [Physician] - 4-7 days Carolyn Tilley DO [Primary Care Provider] - 4-7 days Discharge Diet: Cardiac and Diabetic Discharge Activity: Resume usual activity Patient Instructions: Opioid Safety Assessment: -Please monitor your blood sugars closely -Monitor your blood sugars 3 times daily as after meals -Please record your blood sugars, and a blood sugar log -For your NovoLog -Please inject blood sugar after meals based on sliding scale provided -Do not inject insulin if you do not eat as hypoglycemia kills -This is a NovoLog sliding scale -Insulin sliding fingerstick? Insulin 141-180?2 units/sq 181-220?4 units/sq 221-260?6 units/sq 261-300?8 units/sq 301-350 10 units/sq 351-400 12 units/sq > 400? 14 units/sq -If your blood sugar is greater than 500 go to the emergency room -If your blood sugar is less than 60 or at anytime you feel lightheaded or dizzy or diaphoretic or have chest palpitations check your blood sugar, and eat a hard candy or drink orange juice and go immediately to the emergency room -Remember hypoglycemia kills, so if his blood sugar is less than 60 we have to increase it by taking in a sugary meal such as a hard candy or orange juice and go to the emergency room -If you have any questions please call us where here to help -Take prednisone for hand swelling, monitor blood sugars closely as above, -I have also given you tramadol as needed for 5 days, do not drive or operate heavy machinery or drink while taking tramadol -Please follow-up with rheumatology Discharge Attestations Time Spent in Discharge Care*: less than 30 min Quality Metrics Clinical Quality Measures [ No reported AMI, CVA or VTE this stay] Coding Level of Care Code Acute g FW DC note Diagnoses Hand swelling M79.89 Laterality: right
[2022-02-25 11:08] LABS: Glucose Point of Care 265 mg/dL (70-110)
[2022-02-25] MEDS: insulin lispro 100 unit/1 mL SUBCUT (11:19)
[2022-02-25 11:54] VITALS: BP 157/49; PULSE 62; RESP 16; TEMP 36.4; O2SAT 91
== END 2022-02-25 15:09 | disposition home or self-care (01) | DRG 554 ==
LOC: ER 21:55 → MEDSURG 02-24 00:35
PROVIDERS: Admitting Provider Student in an Organized Health Care Education/Training Program; Emergency Provider Registered Nurse; PCP Family Medicine; Visit Provider Family Medicine
DX: M10.9 Gout, unspecified (principal); M79.89 Other specified soft tissue disorders; N18.4 Chronic kidney disease, stage 4 (severe); E11.22 Type 2 diabetes mellitus with diabetic chronic kidney disease; I12.9 Hypertensive chronic kidney disease with stage 1 through stage 4 chronic kidney disease, or unspecified chronic kidney disease; J44.9 Chronic obstructive pulmonary disease, unspecified; E78.2 Mixed hyperlipidemia; E11.42 Type 2 diabetes mellitus with diabetic polyneuropathy; G47.33 Obstructive sleep apnea (adult) (pediatric); N40.0 Benign prostatic hyperplasia without lower urinary tract symptoms; I77.9 Disorder of arteries and arterioles, unspecified; Z87.891 Personal history of nicotine dependence; Z79.4 Long term (current) use of insulin; Z79.82 Long term (current) use of aspirin
CPT/HCPCS: 36415; 36416; 73200; 80053; 82550; 82962; 84145; 84550; 85025; 85651; 86140; 87040; 93971; 96365; 96367; 96372; 99285; G0378; J1644; J1815; J2543; J3370; J7050; J7512

== ENCOUNTER → 2022-03-03 13:26 | Outpatient (BNVA) | payer MEDICARE, SELFPAY | PROVIDERS: PCP Family Medicine; Visit Provider Family Medicine | DX: M10.9 Gout, unspecified (principal) | CPT/HCPCS: 80048; 84550 ==

== ENCOUNTER 2022-03-09 08:58 | Outpatient (CLI) | payer MEDICARE, SELFPAY ==
[2022-03-09 09:54] LABS: Basophils % 0.6 %; Eosinophils # 0.3 10^3/uL (0.0-0.8); Eosinophils % 3.5 %; Hemoglobin 10.8 g/dL (11.7-16.6); Lymphocytes # 1.5 10^3/uL (0.8-4.8); Lymphocytes % 21.7 %; Mean Corpuscular HGB Conc 32.7 g/dL (30.0-36.0); Mean Corpuscular Hemoglobin 30.4 pg (28.0-34.0); Mean Platelet Volume 9.6 fL (7.4-10.4); Monocytes # 0.9 10^3/uL (0.2-0.9); Monocytes % 13.1 %; Neutrophils # 4.32 10^3/uL (1.8-7.7); Neutrophils % 60.8 %; Nucleated Red Blood Cells % 0 %; Platelet Count 201 10^3/cmm (130-400); Red Blood Count 3.55 10^6/uL (4.1-5.3); Red Cell Distribution Width 14.5 % (12.1-15.1); White Blood Count 7.1 10^3/uL (4.0-10.0)
[2022-03-09 10:17] LABS: Calcium 8.8 mg/dL (8.5-10.5); Creatinine Urine, Random 116 mg/dL (39-259)
[2022-03-09 10:18] LABS: Albumin Level 3.7 g/dL (3.5-5.2); Anion Gap 14.8 (5-19); Blood Urea Nitrogen 48 mg/dL (8-23); Calcium 8.9 mg/dL (8.5-10.5); Carbon Dioxide 24 mmol/L (22-29); Chloride 104 mmol/L (98-107); Glucose 78 mg/dL (65-115); Phosphorus 5.1 mg/dL (2.5-4.5); Potassium 4.8 mmol/L (3.5-5.1); Sodium 138 mmol/L (136-145)
[2022-03-09 10:22] LABS: Estmated Average Glucose 126
[2022-03-09 10:23] LABS: Parathyroid Hormone 71.7 pg/mL (15-65)
[2022-03-09 10:29] LABS: Microalbum Creatinine Ratio Ur 741 mg/dL (0-20); Microalbumin Random Urine 86 ug/dL (0-20)
[2022-03-09 11:20] LABS: Chol HDL Ratio 3.06 mg/dL (1.0-5.00); Cholesterol 107 mg/dL (0-200); HDL Cholesterol 35 mg/dL (60-100); LDL Cholesterol Calculated 49 mg/dL (50-129); Triglycerides 116 mg/dL (0-150)
== END 2022-03-09 08:59 | disposition home or self-care (01) ==
PROVIDERS: Internal Medicine; PCP Family Medicine; Visit Provider Registered Nurse
DX: E11.22 Type 2 diabetes mellitus with diabetic chronic kidney disease (principal); I12.9 Hypertensive chronic kidney disease with stage 1 through stage 4 chronic kidney disease, or unspecified chronic kidney disease; N18.4 Chronic kidney disease, stage 4 (severe); E11.42 Type 2 diabetes mellitus with diabetic polyneuropathy; E78.2 Mixed hyperlipidemia; Z79.4 Long term (current) use of insulin; E11.8 Type 2 diabetes mellitus with unspecified complications; L60.3 Nail dystrophy; M20.41 Other hammer toe(s) (acquired), right foot; L84 Corns and callosities; L60.1 Onycholysis; M20.42 Other hammer toe(s) (acquired), left foot
CPT/HCPCS: 11056; 11721; 36415; 80061; 80069; 82044; 82310; 83036; 83970; 85025

== ENCOUNTER → 2022-03-17 10:49 | Outpatient (BNVA) | payer MEDICARE, SELFPAY | PROVIDERS: PCP Family Medicine; Visit Provider Family Medicine | DX: M10.9 Gout, unspecified (principal) | CPT/HCPCS: 84550 ==

== ENCOUNTER → 2022-04-06 13:32 | Outpatient (BNVA) | payer MEDICARE, SELFPAY | PROVIDERS: PCP Family Medicine; Visit Provider Internal Medicine | DX: E11.649 Type 2 diabetes mellitus with hypoglycemia without coma (principal); E11.42 Type 2 diabetes mellitus with diabetic polyneuropathy; E11.22 Type 2 diabetes mellitus with diabetic chronic kidney disease; N18.4 Chronic kidney disease, stage 4 (severe); E78.2 Mixed hyperlipidemia; E16.0 Drug-induced hypoglycemia without coma; T38.3X5A Adverse effect of insulin and oral hypoglycemic [antidiabetic] drugs, initial encounter; Z86.73 Personal history of transient ischemic attack (TIA), and cerebral infarction without residual deficits; E66.9 Obesity, unspecified; Z68.35 Body mass index [BMI] 35.0-35.9, adult; Z79.4 Long term (current) use of insulin | CPT/HCPCS: 99214 ==

== ENCOUNTER → 2022-04-07 08:52 | Outpatient (BNVA) | payer MEDICARE, SELFPAY | PROVIDERS: PCP Family Medicine; Visit Provider Internal Medicine | DX: M10.9 Gout, unspecified (principal); M79.89 Other specified soft tissue disorders; N18.4 Chronic kidney disease, stage 4 (severe) | CPT/HCPCS: 99204 ==

== ENCOUNTER 2022-04-26 09:15 | Outpatient (CLI) | payer MEDICARE, SELFPAY ==
[2022-04-26 09:52] LABS: Erythrocyte Sedimentation Rate 18 mm/hr (0-10)
--- NOTE | 2022-04-26 09:52 | XR_ITS ---
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 Comparison 02/19/2022. Osteoarthritic changes noted in the IP and MP joints. No fracture or dislocation. Extensive vascular calcifications about the hand. Degenerative changes in the intercarpal articulations. No soft tissue foreign bodies are seen. Very little change since the previous study. XR/XR hand RT 2V [id number] IMPRESSION: 1. Osteoarthritic changes as noted above. No fracture or dislocation. Little ch antony since the previous exam.
--- NOTE | 2022-04-26 09:52 | XR_ITS ---
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 No acute fracture or dislocation noted. Moderate osteoarthritic changes noted in the IP and MP joints . Moderate DJD at the CMC joint of the thumb. Degenerative changes in the intercarpal joints. Vascula r calcifications about the hand and wrist. No soft tissue foreign bodies are seen. Soft tissue swelli ng of the proximal index finger. XR/XR hand LT 2V [id number] IMPRESSION: 1. Osteoarthritic changes in the IP and MP joints as well as the CMC joint of t he thumb. No fracture or dislocation. 2. Extensive vascular calcifications about the hand and wrist. 3. Soft tissue edema of the proximal index finger.
[2022-04-26 10:35] LABS: Calcium 8.7 mg/dL (8.5-10.5); Ferritin 561 ng/mL (30-400); Iron 90 ug/dL (59-158); Magnesium 2.1 mg/dL (1.7-2.3); Parathyroid Hormone 93.2 pg/mL (15-65); Phosphorus 4.9 mg/dL (2.5-4.5); Thyroid Stimulating Hormone 2.74 uIU/mL (0.27-4.20)
[2022-04-27 10:55] LABS: CENTROMERE B ANTIBODY <1.0 NEG AI (<1.0 NEG); JO-1 ANTIBODY <1.0 NEG AI (<1.0 NEG); RNP ANTIBODY 2.3 POS AI (<1.0 NEG); SCL-70 ANTIBODY <1.0 NEG AI (<1.0 NEG); SJOGREN'S ANTIBODY (SS-A) <1.0 NEG AI (<1.0 NEG); SM ANTIBODY <1.0 NEG AI (<1.0 NEG); SS-B <1.0 NEG AI (<1.0 NEG)
[2022-04-27 13:11] LABS: Cyclic Citrullinated Peptide <16 UNITS
[2022-04-27 13:55] LABS: ANA SCREEN, IFA NEGATIVE (NEGATIVE)
[2022-04-27 15:34] LABS: THYROID PEROXIDASE ANTIBODIES <1 IU/mL (<9)
[2022-04-28 12:01] LABS: COMPLEMENT COMPONENT C3C 116 mg/dL (82-185); COMPLEMENT COMPONENT C4C 26 mg/dL (15-53)
[2022-04-28 12:15] LABS: COMPLEMENT, TOTAL (CH50) >60 U/mL (31-60)
[2022-05-03 11:05] LABS: DNA AB (DS) CRITHIDIA,IFA NEGATIVE (NEGATIVE)
== END 2022-04-26 09:16 | disposition home or self-care (01) ==
LOC: LAB 09:20
PROVIDERS: PCP Family Medicine; Visit Provider Internal Medicine
DX: M1A.3411 Chronic gout due to renal impairment, right hand, with tophus (tophi) (principal); N18.4 Chronic kidney disease, stage 4 (severe); I51.7 Cardiomegaly; R60.0 Localized edema
CPT/HCPCS: 36415; 73120; 82310; 82728; 83540; 83735; 83970; 84100; 84443; 85651; 86140; 86160; 86162; 86200; 86235; 86255; 86376

== ENCOUNTER → 2022-05-11 09:59 | Outpatient (BNVA) | payer MEDICARE, SELFPAY | PROVIDERS: PCP Family Medicine; Visit Provider Podiatrist Foot & Ankle Surgery | DX: E11.8 Type 2 diabetes mellitus with unspecified complications (principal); E11.42 Type 2 diabetes mellitus with diabetic polyneuropathy; Z79.4 Long term (current) use of insulin; L60.3 Nail dystrophy; L84 Corns and callosities; L60.1 Onycholysis; M20.42 Other hammer toe(s) (acquired), left foot; M20.41 Other hammer toe(s) (acquired), right foot | CPT/HCPCS: 11055; 11721 ==

== ENCOUNTER → 2022-06-03 11:43 | Outpatient (BNVA) | payer MEDICARE, SELFPAY | PROVIDERS: PCP Family Medicine; Visit Provider Emergency Medicine | DX: E11.621 Type 2 diabetes mellitus with foot ulcer (principal); L97.509 Non-pressure chronic ulcer of other part of unspecified foot with unspecified severity; L97.529 Non-pressure chronic ulcer of other part of left foot with unspecified severity; L08.9 Local infection of the skin and subcutaneous tissue, unspecified; I73.9 Peripheral vascular disease, unspecified; M79.672 Pain in left foot | CPT/HCPCS: 73630 ==

== ENCOUNTER → 2022-06-09 07:58 | Outpatient (BNVA) | payer MEDICARE, SELFPAY | PROVIDERS: PCP Family Medicine; Visit Provider Thoracic Surgery (Cardiothoracic Vascular Surgery) | DX: I96 Gangrene, not elsewhere classified (principal); E11.621 Type 2 diabetes mellitus with foot ulcer; L89.892 Pressure ulcer of other site, stage 2 | CPT/HCPCS: 97597; 99213 ==

== ENCOUNTER → 2022-06-16 08:44 | Outpatient (BNVA) | payer MEDICARE, SELFPAY | PROVIDERS: PCP Family Medicine; Visit Provider Thoracic Surgery (Cardiothoracic Vascular Surgery) | DX: Z09 Encounter for follow-up examination after completed treatment for conditions other than malignant neoplasm (principal) | CPT/HCPCS: 99212 ==

== ENCOUNTER → 2022-06-19 11:04 | Outpatient (BNVA) | payer MEDICARE, SELFPAY | PROVIDERS: PCP Family Medicine; Visit Provider Internal Medicine | DX: M79.89 Other specified soft tissue disorders (principal); R76.8 Other specified abnormal immunological findings in serum; M10.9 Gout, unspecified; N18.4 Chronic kidney disease, stage 4 (severe) | CPT/HCPCS: 99214 ==

== ENCOUNTER 2022-06-21 06:21 | Outpatient (CLI) | payer MEDICARE, SELFPAY ==
--- NOTE | 2022-06-21 06:30 | USCV_ITS ---
Geovanny Lujan Age: 81 Gender: M : 1940 Exam Date: 06/21/2022 06:46 Ordering Phys: Trudy Tanner DO Technologist: CT Exam Location: [facility] [place] Indication: pain Risk Factors: Previous Vascular Surgery: RIGHT LEFT BP: 164.0 / 73.00 BP: 0.00 / 0 Waveform Velocity (cm/s) Velocity (cm/s) Waveform Iliac Prox 94.4 Triphasic Iliac Mid 97.1 Triphasic Iliac Distal 83.4 Triphasic METAL HANDLER 86.8 Triphasic SFA Prox 83.8 Biphasic SFA Mid 141.7 Biphasic SFA Dist 83.5 Biphasic POP 90.6 Biphasic F[place]ETTE 101.4 Triphasic DPA 112.4 Monophasic ROBBI 1.1 FINDINGS Mild diffuse plaque in the iliac, femoral, popliteal arteries. Moderate diffuse plaque in the infrapopliteal vessels. Resting ROBBI 1.1 on the left side CONCLUSIONS 1. Normal resting ROBBI on the left side 2. Moderate diffuse plaque in the infrapopliteal vessels. 3. No significant arterial obstruction, based on the above finding Dr Monica Cruz MD [facility] (Electronically Signed) Final Date: 21 June 2022 17:05 S
--- NOTE | 2022-06-21 08:00 | USCV_ITS ---
Geovanny Lujan Age: 81 Gender: M : 1940 Exam Date: 06/21/2022 06:35 Ordering Phys: Trudy Tanner DO Technologist: CT [place]am [place] [facility] [place] Indication: pain PROCEDURES: Venous duplex imaging was performed in only the left lower extremity. In addition, the posterior tibial and peroneal trunk were evaluated. On the left side, the common femoral, superficial femoral, profunda femoral, popliteal, posterior tibial, greater saphenous veins, and the peroneal trunk were identified and interrogated in the standard fashion. FINDINGS: Normal 2-D Doppler and augmentation and compressibility throughout the lower extremity venous structures. Additional imaging through the proximal calf veins also reveals no thrombus. Limited evaluation of the greater saphenous vein is patent with no thrombus. CONCLUSIONS No DVT left lower extremity. Dr. Diana Galicia DO (Electronically Signed) Final Date: 21 June 2022 07:50 S
== END 2022-06-21 06:22 | disposition home or self-care (01) ==
LOC: RAD 06:22
PROVIDERS: PCP Family Medicine; Visit Provider Emergency Medicine
DX: M79.672 Pain in left foot (principal)
CPT/HCPCS: 93926; 93971

== ENCOUNTER 2022-07-04 11:16 | Outpatient (CLI) | payer MEDICARE, SELFPAY ==
--- NOTE | 2022-07-04 11:33 | XR_ITS ---
WS: [id number] Left hip, 2 views, 07/04/2022 Clinical Data: left hip pain Comparison: None. Findings: No fractures or dislocations are seen. The hip joint is intact. The left hip shows no erosion, sclero sis, narrowing or fragmentation of the left femoral head. There is a small acetabular lip. The soft t issues are not remarkable. The adjacent pelvis is normal. There are phleboliths throughout the pelvis. There are vascular calcifications. XR/XR hip LT 2-3V wo/w pel* [id number] Impression: Minimal osteoarthritis of the left hip. Tonnis classification: grade 1: sclerosis of femoral head and acetabulum or sli ght joint space narrowing or slight lipping at joint margins
== END 2022-07-04 11:17 | disposition home or self-care (01) ==
PROVIDERS: PCP Family Medicine; Visit Provider Family Medicine
DX: M16.12 Unilateral primary osteoarthritis, left hip (principal)
CPT/HCPCS: 73502

== ENCOUNTER → 2022-07-27 08:55 | Outpatient (BNVA) | payer MEDICARE, SELFPAY | PROVIDERS: PCP Family Medicine; Visit Provider Podiatrist Foot & Ankle Surgery | DX: E11.42 Type 2 diabetes mellitus with diabetic polyneuropathy (principal); L60.3 Nail dystrophy; Z79.4 Long term (current) use of insulin; M20.41 Other hammer toe(s) (acquired), right foot; L84 Corns and callosities | CPT/HCPCS: 11055; 11721 ==

== ENCOUNTER → 2022-08-07 14:10 | Outpatient (BNVA) | payer MEDICARE, SELFPAY | PROVIDERS: PCP Family Medicine; Visit Provider Internal Medicine | DX: I10 Essential (primary) hypertension (principal); E78.2 Mixed hyperlipidemia; G47.33 Obstructive sleep apnea (adult) (pediatric); R06.00 Dyspnea, unspecified; I77.9 Disorder of arteries and arterioles, unspecified; Z87.891 Personal history of nicotine dependence | CPT/HCPCS: 99214 ==

== ENCOUNTER 2022-08-14 09:48 | Outpatient (CLI) | payer MEDICARE, SELFPAY ==
[2022-08-14 10:52] LABS: Basophils % 0.6 %; Eosinophils # 0.2 10^3/uL (0.0-0.8); Eosinophils % 2.7 %; Hematocrit 32.8 % (42.0-52.0); Hemoglobin 10.6 g/dL (11.7-16.6); Lymphocytes # 1.8 10^3/uL (0.8-4.8); Mean Corpuscular HGB Conc 32.3 g/dL (30.0-36.0); Mean Corpuscular Hemoglobin 30.2 pg (28.0-34.0); Mean Corpuscular Volume 93.4 fl (80-94); Mean Platelet Volume 9.8 fL (7.4-10.4); Monocytes % 15.8 %; Neutrophils # 3.25 10^3/uL (1.8-7.7); Neutrophils % 51.6 %; Nucleated Red Blood Cells % 0 %; Platelet Count 172 10^3/cmm (130-400); Red Blood Count 3.51 10^6/uL (4.1-5.3); Red Cell Distribution Width 14.6 % (12.1-15.1); White Blood Count 6.3 10^3/uL (4.0-10.0)
[2022-08-14 10:56] LABS: Erythrocyte Sedimentation Rate 23 mm/hr (0-10)
[2022-08-14 11:19] LABS: Alanine Aminotransferase 13 U/L (0-41); Albumin Level 3.6 g/dL (3.5-5.2); Alkaline Phosphatase 34 U/L (40-130); Anion Gap 16.5 (5-19); Aspartate Amino Transferase 18 U/L (0-40); Blood Urea Nitrogen 57 mg/dL (8-23); Calcium 8.8 mg/dL (8.5-10.5); Carbon Dioxide 22 mmol/L (22-29); Chloride 107 mmol/L (98-107); Globulin 2.7 g/dL (1.3-4.6); Glucose 57 mg/dL (65-115); Osmolality Calculated 306 mOsm/kg (285-295); Potassium 4.5 mmol/L (3.5-5.1); Sodium 141 mmol/L (136-145); Total Bilirubin 0.3 mg/dL (0.15-1.2); Total Protein 6.3 g/dL (6.6-8.7)
[2022-08-14 11:33] LABS: Uric Acid 7.4 mg/dL (3.4-7.0)
[2022-08-14 11:47] LABS: Estmated Average Glucose 137; Hemoglobin A1C 6.4 % (4.0-6.0)
== END 2022-08-14 09:49 | disposition home or self-care (01) ==
LOC: LAB 09:54
PROVIDERS: Internal Medicine; PCP Family Medicine; Visit Provider Internal Medicine
DX: M10.9 Gout, unspecified (principal); M79.89 Other specified soft tissue disorders; E11.649 Type 2 diabetes mellitus with hypoglycemia without coma
CPT/HCPCS: 36415; 80053; 83036; 84550; 85025; 85651; 86140

== ENCOUNTER → 2022-08-16 13:13 | Outpatient (BNVA) | payer MEDICARE, SELFPAY | PROVIDERS: PCP Family Medicine; Visit Provider Internal Medicine | DX: E11.621 Type 2 diabetes mellitus with foot ulcer (principal); E11.649 Type 2 diabetes mellitus with hypoglycemia without coma; E11.42 Type 2 diabetes mellitus with diabetic polyneuropathy; E11.22 Type 2 diabetes mellitus with diabetic chronic kidney disease; N18.4 Chronic kidney disease, stage 4 (severe); L97.522 Non-pressure chronic ulcer of other part of left foot with fat layer exposed; E78.2 Mixed hyperlipidemia; T38.3X5A Adverse effect of insulin and oral hypoglycemic [antidiabetic] drugs, initial encounter; E16.0 Drug-induced hypoglycemia without coma; Z86.73 Personal history of transient ischemic attack (TIA), and cerebral infarction without residual deficits; E66.9 Obesity, unspecified; X58.XXXA Exposure to other specified factors, initial encounter; Z68.36 Body mass index [BMI] 36.0-36.9, adult; Z79.4 Long term (current) use of insulin | CPT/HCPCS: 99214 ==

== ENCOUNTER 2022-08-21 09:17 | Outpatient (CLI) | payer MEDICARE, SELFPAY ==
[2022-08-21 10:25] LABS: Basophils % 0.8 %; Eosinophils # 0.2 10^3/uL (0.0-0.8); Eosinophils % 4.2 %; Hematocrit 32.9 % (42.0-52.0); Hemoglobin 10.8 g/dL (11.7-16.6); Lymphocytes # 1.4 10^3/uL (0.8-4.8); Lymphocytes % 26.2 %; Mean Corpuscular HGB Conc 32.8 g/dL (30.0-36.0); Mean Corpuscular Hemoglobin 30.3 pg (28.0-34.0); Mean Corpuscular Volume 92.4 fl (80-94); Mean Platelet Volume 9.5 fL (7.4-10.4); Monocytes # 0.8 10^3/uL (0.2-0.9); Monocytes % 15.4 %; Neutrophils # 2.81 10^3/uL (1.8-7.7); Neutrophils % 53.2 %; Nucleated Red Blood Cells % 0 %; Platelet Count 192 10^3/cmm (130-400); Red Blood Count 3.56 10^6/uL (4.1-5.3); Red Cell Distribution Width 14.7 % (12.1-15.1); White Blood Count 5.3 10^3/uL (4.0-10.0)
[2022-08-21 10:42] LABS: Albumin Level 3.7 g/dL (3.5-5.2); Blood Urea Nitrogen 68 mg/dL (8-23); Calcium 8.7 mg/dL (8.5-10.5); Carbon Dioxide 21 mmol/L (22-29); Chloride 103 mmol/L (98-107); Glucose 71 mg/dL (65-115); Phosphorus 5.5 mg/dL (2.5-4.5); Sodium 139 mmol/L (136-145)
[2022-08-21 10:45] LABS: Anion Gap 19.8 (5-19); Potassium 4.8 mmol/L (3.5-5.1)
[2022-08-21 10:50] LABS: Calcium 8.5 mg/dL (8.5-10.5)
[2022-08-21 10:57] LABS: Parathyroid Hormone 107.5 pg/mL (15-65)
[2022-08-21 10:59] LABS: 25 Hydroxy Vitamin D 29 ng/mL (30-100)
[2022-08-21 11:11] LABS: Creatinine Urine, Random 114 mg/dL (39-259)
[2022-08-21 11:25] LABS: Microalbum Creatinine Ratio Ur 1333 mg/dL (0-20); Microalbumin Random Urine 152 ug/dL (0-20)
== END 2022-08-21 09:18 | disposition home or self-care (01) ==
PROVIDERS: PCP Family Medicine; Visit Provider Registered Nurse
DX: E55.9 Vitamin D deficiency, unspecified (principal)
CPT/HCPCS: 36415; 80069; 82044; 82306; 82310; 83970; 85025

== ENCOUNTER 2022-08-29 11:08 | Outpatient (CLI) | payer MEDICARE, SELFPAY ==
[2022-08-29 12:24] LABS: Anion Gap 16.2 (5-19); Blood Urea Nitrogen 60 mg/dL (8-23); Calcium 8.3 mg/dL (8.5-10.5); Carbon Dioxide 22 mmol/L (22-29); Chloride 102 mmol/L (98-107); Glucose 153 mg/dL (65-115); Osmolality Calculated 300 mOsm/kg (285-295); Potassium 5.2 mmol/L (3.5-5.1); Sodium 135 mmol/L (136-145)
== END 2022-08-29 11:09 | disposition home or self-care (01) ==
LOC: LAB 11:17
PROVIDERS: PCP Family Medicine; Visit Provider Registered Nurse
DX: N18.4 Chronic kidney disease, stage 4 (severe) (principal)
CPT/HCPCS: 36415; 80048

== ENCOUNTER → 2022-10-05 10:11 | Outpatient (BNVA) | payer MEDICARE, SELFPAY | PROVIDERS: PCP Family Medicine; Visit Provider Podiatrist Foot & Ankle Surgery | DX: E11.8 Type 2 diabetes mellitus with unspecified complications (principal); E11.42 Type 2 diabetes mellitus with diabetic polyneuropathy; Z79.4 Long term (current) use of insulin; L60.3 Nail dystrophy; L84 Corns and callosities; M20.42 Other hammer toe(s) (acquired), left foot; M20.41 Other hammer toe(s) (acquired), right foot | CPT/HCPCS: 11055; 11721 ==

== ENCOUNTER → 2022-10-12 14:02 | Outpatient (BNVA) | payer MEDICARE, SELFPAY | PROVIDERS: PCP Family Medicine; Visit Provider Internal Medicine | DX: R76.8 Other specified abnormal immunological findings in serum (principal); M79.89 Other specified soft tissue disorders; M10.9 Gout, unspecified; N18.4 Chronic kidney disease, stage 4 (severe) | CPT/HCPCS: 99214 ==

== ENCOUNTER 2022-11-03 10:55 | Outpatient (CLI) | payer MEDICARE, SELFPAY ==
[2022-11-03 12:13] LABS: Basophils % 0.6 %; Eosinophils # 0.4 10^3/uL (0.0-0.8); Hematocrit 30.6 % (42.0-52.0); Hemoglobin 9.7 g/dL (11.7-16.6); Lymphocytes # 1.4 10^3/uL (0.8-4.8); Lymphocytes % 21.5 %; Mean Corpuscular HGB Conc 31.7 g/dL (30.0-36.0); Mean Corpuscular Hemoglobin 29.8 pg (28.0-34.0); Mean Corpuscular Volume 94.2 fl (80-94); Mean Platelet Volume 9.5 fL (7.4-10.4); Monocytes # 0.9 10^3/uL (0.2-0.9); Monocytes % 13.8 %; Neutrophils # 3.68 10^3/uL (1.8-7.7); Neutrophils % 57.9 %; Nucleated Red Blood Cells % 0 %; Platelet Count 163 10^3/cmm (130-400); Red Blood Count 3.25 10^6/uL (4.1-5.3); Red Cell Distribution Width 13.9 % (12.1-15.1); White Blood Count 6.4 10^3/uL (4.0-10.0)
[2022-11-03 12:35] LABS: Albumin Level 3.7 g/dL (3.5-5.2); Anion Gap 15.7 (5-19); Blood Urea Nitrogen 62 mg/dL (8-23); Calcium 8.2 mg/dL (8.5-10.5); Calcium 8.3 mg/dL (8.5-10.5); Carbon Dioxide 20 mmol/L (22-29); Chloride 107 mmol/L (98-107); Glucose 163 mg/dL (65-115); Phosphorus 4.8 mg/dL (2.5-4.5); Potassium 4.7 mmol/L (3.5-5.1); Sodium 138 mmol/L (136-145)
[2022-11-03 12:36] LABS: Creatinine Urine, Random 59 mg/dL (39-259)
[2022-11-03 12:42] LABS: Parathyroid Hormone 73.5 pg/mL (15-65)
[2022-11-03 12:48] LABS: Microalbum Creatinine Ratio Ur 1559 mg/dL (0-20); Microalbumin Random Urine 92 ug/dL (0-20)
[2022-11-03 12:50] LABS: 25 Hydroxy Vitamin D 25 ng/mL (30-100)
== END 2022-11-03 10:56 | disposition home or self-care (01) ==
PROVIDERS: PCP Family Medicine; Visit Provider Registered Nurse
DX: N18.4 Chronic kidney disease, stage 4 (severe) (principal)
CPT/HCPCS: 36415; 80069; 82044; 82306; 82310; 83970; 85025

== ENCOUNTER → 2022-12-07 11:26 | Outpatient (BNVA) | payer MEDICARE, SELFPAY | PROVIDERS: PCP Family Medicine; Visit Provider Podiatrist Foot & Ankle Surgery | DX: E11.42 Type 2 diabetes mellitus with diabetic polyneuropathy (principal); Z79.4 Long term (current) use of insulin; L60.3 Nail dystrophy; L84 Corns and callosities; M20.42 Other hammer toe(s) (acquired), left foot; M20.41 Other hammer toe(s) (acquired), right foot | CPT/HCPCS: 11055; 11721 ==

== ENCOUNTER 2022-12-08 10:36 | Outpatient (CLI) | payer MEDICARE, SELFPAY ==
[2022-12-08 11:18] LABS: Estmated Average Glucose 128; Hemoglobin A1C 6.1 % (4.0-6.0)
[2022-12-08 11:33] LABS: Creatinine Urine, Random 95 mg/dL (39-259)
[2022-12-08 11:40] LABS: Alanine Aminotransferase 15 U/L (0-41); Albumin Level 3.4 g/dL (3.5-5.2); Alkaline Phosphatase 42 U/L (40-130); Anion Gap 16.4 (5-19); Aspartate Amino Transferase 17 U/L (0-40); Blood Urea Nitrogen 59 mg/dL (8-23); Calcium 8.5 mg/dL (8.5-10.5); Carbon Dioxide 21 mmol/L (22-29); Chloride 107 mmol/L (98-107); Chol HDL Ratio 3.39 mg/dL (1.0-5.00); Cholesterol 105 mg/dL (0-200); Globulin 1.8 g/dL (1.3-4.6); Glucose 202 mg/dL (65-115); HDL Cholesterol 31 mg/dL (60-100); LDL Cholesterol Calculated 47 mg/dL (50-129); LDL HDL Ratio 1.52 RATIO (0.00-3.22); Osmolality Calculated 312 mOsm/kg (285-295); Potassium 4.4 mmol/L (3.5-5.1); Sodium 140 mmol/L (136-145); Total Bilirubin 0.3 mg/dL (0.15-1.2); Total Protein 5.2 g/dL (6.6-8.7); Triglycerides 135 mg/dL (0-150)
[2022-12-08 11:48] LABS: Microalbum Creatinine Ratio Ur 1368 mg/dL (0-20); Microalbumin Random Urine 130 ug/dL (0-20)
== END 2022-12-08 10:37 | disposition home or self-care (01) ==
PROVIDERS: PCP Family Medicine; Visit Provider Internal Medicine
DX: E11.621 Type 2 diabetes mellitus with foot ulcer (principal); E11.649 Type 2 diabetes mellitus with hypoglycemia without coma; L97.522 Non-pressure chronic ulcer of other part of left foot with fat layer exposed
CPT/HCPCS: 36415; 80053; 80061; 82044; 83036

== ENCOUNTER → 2022-12-13 13:22 | Outpatient (BNVA) | payer MEDICARE, SELFPAY | PROVIDERS: PCP Family Medicine; Visit Provider Internal Medicine | DX: E11.621 Type 2 diabetes mellitus with foot ulcer (principal); L97.522 Non-pressure chronic ulcer of other part of left foot with fat layer exposed; E11.649 Type 2 diabetes mellitus with hypoglycemia without coma; E78.2 Mixed hyperlipidemia; E11.42 Type 2 diabetes mellitus with diabetic polyneuropathy; Z79.4 Long term (current) use of insulin; E11.22 Type 2 diabetes mellitus with diabetic chronic kidney disease; N18.4 Chronic kidney disease, stage 4 (severe); E66.9 Obesity, unspecified; Z86.73 Personal history of transient ischemic attack (TIA), and cerebral infarction without residual deficits; E16.0 Drug-induced hypoglycemia without coma; T38.3X5A Adverse effect of insulin and oral hypoglycemic [antidiabetic] drugs, initial encounter; X58.XXXA Exposure to other specified factors, initial encounter; Z68.36 Body mass index [BMI] 36.0-36.9, adult | CPT/HCPCS: 99214 ==

== ENCOUNTER → 2023-01-11 13:51 | Outpatient (BNVA) | payer MEDICARE, SELFPAY | PROVIDERS: PCP Family Medicine; Visit Provider Internal Medicine | DX: I12.9 Hypertensive chronic kidney disease with stage 1 through stage 4 chronic kidney disease, or unspecified chronic kidney disease (principal); E11.22 Type 2 diabetes mellitus with diabetic chronic kidney disease; N18.4 Chronic kidney disease, stage 4 (severe); Z87.891 Personal history of nicotine dependence; Z79.4 Long term (current) use of insulin; E78.2 Mixed hyperlipidemia; G47.33 Obstructive sleep apnea (adult) (pediatric); I73.9 Peripheral vascular disease, unspecified; R06.00 Dyspnea, unspecified | CPT/HCPCS: 99214 ==

== ENCOUNTER 2023-01-25 09:27 | Outpatient (CLI) | payer MEDICARE, SELFPAY ==
--- NOTE | 2023-01-25 09:45 | USCV_ITS ---
Geovanny Lujan Age: 82 Gender: M : 1940 Exam Date: 01/25/2023 09:39 Ordering Phys: Arcenio Morris M.D ([email or web address]) Technologist: Ally Hagen [place] [facility] [place]: CAD Risk Factors: None Previous Vascular Surgery: None Right Brachial BP: / Left Brachial BP: / Right Left Velocity (cm/s) Spectral Plaque Velocity (cm/s) Spectral Plaque Syst/Diast Broadening Syst/Diast Broadening 92.50/ 15.60 Prox CCA 91.30 / 36.30 64.80/ 13.20 Mid CCA 92.60 / 14.00 79.00/ 14.20 Jose Distal CCA 93.20 / 15.30 Jose 87.30/ 17.00 Prox ICA 112.30/ 14.00 100.40/20.60 Mid ICA 108.50/ 19.10 92.70/ 14.60 Distal ICA 85.40 / 18.60 124.50 ECA 118.70 1.55 ICA/CCA 1.21 Antegrade Vertebral Antegrade 42.90/ 6.90 cm/s 58.20/ 13.40 cm/s Tri Subclavian Tri 103.8 172.4 0 0 FINDINGS comp 05/2019 CONCLUSIONS Right ICA stenosis <50%. Mild atheromatous plaque right carotid bulb/ICA. Left ICA stenosis <50%. Moderate atheromatous plaque left carotid bulb/ICA. Intimal thickening in the common carotid arteries and internal carotid arteries bilaterally. Normal antegrade Doppler flow noted in the right vertebral artery. Normal antegrade Doppler flow noted in the left vertebral artery. León Wilburn MD (Electronically Signed) Final Date: 25 January 2023 10:35 S
== END 2023-01-25 09:28 | disposition home or self-care (01) ==
PROVIDERS: PCP Family Medicine; Visit Provider Internal Medicine
DX: I65.23 Occlusion and stenosis of bilateral carotid arteries (principal)
CPT/HCPCS: 93880

== ENCOUNTER 2023-02-05 09:38 | Outpatient (CLI) | payer MEDICARE, SELFPAY ==
[2023-02-05 10:43] LABS: Basophils % 0.4 %; Eosinophils # 0.5 10^3/uL (0.0-0.8); Eosinophils % 6.1 %; Hematocrit 31.1 % (37-53); Lymphocytes # 1.8 10^3/uL (0.8-4.8); Lymphocytes % 22.6 %; Mean Corpuscular HGB Conc 32.8 g/dL (30-55); Mean Corpuscular Hemoglobin 30.4 pg (27-33); Mean Corpuscular Volume 92.8 fl (82-101); Mean Platelet Volume 9.8 fL (7.4-10.4); Monocytes # 1.1 10^3/uL (0.2-0.9); Monocytes % 13.7 %; Neutrophils # 4.58 10^3/uL (1.8-7.7); Neutrophils % 56.7 %; Nucleated Red Blood Cells % 0 %; Platelet Count 196 10^3/cmm (157-399); Red Blood Count 3.35 10^6/uL (3.85-5.65); Red Cell Distribution Width 14.3 % (12.1-15.1); White Blood Count 8.08 10^3/uL (3.29-11.43)
[2023-02-05 11:14] LABS: Albumin Level 3.8 g/dL (3.5-5.2); Anion Gap 16.2 (5-19); Blood Urea Nitrogen 62 mg/dL (8-23); Calcium 8.3 mg/dL (8.5-10.5); Carbon Dioxide 22 mmol/L (22-29); Chloride 108 mmol/L (98-107); Glucose 74 mg/dL (65-115); Phosphorus 4.8 mg/dL (2.5-4.5); Potassium 4.2 mmol/L (3.5-5.1); Sodium 142 mmol/L (136-145)
[2023-02-05 11:15] LABS: Creatinine Urine, Random 111 mg/dL (39-259)
[2023-02-05 11:21] LABS: Parathyroid Hormone 103.5 pg/mL (15-65)
[2023-02-05 11:27] LABS: Microalbum Creatinine Ratio Ur 1432 mg/dL (0-20); Microalbumin Random Urine 159 ug/dL (0-20)
== END 2023-02-05 09:39 | disposition home or self-care (01) ==
PROVIDERS: PCP Family Medicine; Visit Provider Registered Nurse
DX: N18.4 Chronic kidney disease, stage 4 (severe) (principal)
CPT/HCPCS: 36415; 80069; 82044; 82310; 83970; 85025

== ENCOUNTER → 2023-02-07 10:41 | Outpatient (BNVA) | payer MEDICARE, SELFPAY | PROVIDERS: PCP Family Medicine; Visit Provider Internal Medicine | DX: M79.89 Other specified soft tissue disorders (principal); R76.8 Other specified abnormal immunological findings in serum; M10.9 Gout, unspecified; N18.4 Chronic kidney disease, stage 4 (severe); E11.42 Type 2 diabetes mellitus with diabetic polyneuropathy; L84 Corns and callosities; L60.3 Nail dystrophy; E11.621 Type 2 diabetes mellitus with foot ulcer; L97.522 Non-pressure chronic ulcer of other part of left foot with fat layer exposed; Z79.4 Long term (current) use of insulin; M20.40 Other hammer toe(s) (acquired), unspecified foot | CPT/HCPCS: 11055; 11721; 99214 ==

== ENCOUNTER 2023-02-27 14:00 | Outpatient (CLI) | payer MEDICARE, SELFPAY ==
[2023-02-27 14:35] LABS: Ferritin 538 ng/mL (30-400); Iron 81 ug/dL (59-158); Percent Saturation 41.3 % (20-50); Total Iron Binding Capacity 196 mcg/dl; Unsaturated Iron Binding 115 ug/dL (112-347)
== END 2023-02-27 14:01 | disposition home or self-care (01) ==
PROVIDERS: PCP Family Medicine; Visit Provider Registered Nurse
DX: D50.8 Other iron deficiency anemias (principal)
CPT/HCPCS: 82728; 83540; 83550

== ENCOUNTER → 2023-03-16 11:10 | Outpatient (BNVA) | payer MEDICARE, SELFPAY | PROVIDERS: PCP Family Medicine; Visit Provider Family Medicine | DX: N40.1 Benign prostatic hyperplasia with lower urinary tract symptoms (principal); R39.11 Hesitancy of micturition; Z12.5 Encounter for screening for malignant neoplasm of prostate; D50.9 Iron deficiency anemia, unspecified | CPT/HCPCS: G0103 ==

== ENCOUNTER → 2023-04-18 10:19 | Outpatient (BNVA) | payer MEDICARE, SELFPAY | PROVIDERS: PCP Family Medicine; Visit Provider Podiatrist Foot & Ankle Surgery | DX: E11.8 Type 2 diabetes mellitus with unspecified complications (principal); E11.621 Type 2 diabetes mellitus with foot ulcer; L97.522 Non-pressure chronic ulcer of other part of left foot with fat layer exposed; E11.42 Type 2 diabetes mellitus with diabetic polyneuropathy; Z79.4 Long term (current) use of insulin; L60.3 Nail dystrophy; M20.40 Other hammer toe(s) (acquired), unspecified foot; L84 Corns and callosities; M20.42 Other hammer toe(s) (acquired), left foot; M20.41 Other hammer toe(s) (acquired), right foot | CPT/HCPCS: 11055; 11721 ==

== ENCOUNTER → 2023-05-04 17:28 | Outpatient (BNVA) | payer MEDICARE, SELFPAY | PROVIDERS: PCP Family Medicine; Visit Provider Nurse Practitioner | DX: J06.9 Acute upper respiratory infection, unspecified (principal); R06.02 Shortness of breath; J90 Pleural effusion, not elsewhere classified | CPT/HCPCS: 71046 ==

== ENCOUNTER 2023-05-04 18:20 | Inpatient (IN) | payer MEDICARE, SELFPAY ==
--- NOTE | 2023-05-04 18:22 | XRR_ITS ---
PROCEDURE INFORMATION: Exam: XR Chest Exam date and time: 05/04/2023 6:58 PM Age: 82 years old Clinical indication: Shortness of breath; Patient HX: SOB; Chest congestion; Fever; Low o2 sat TECHNIQUE: Imaging protocol: Radiologic exam of the chest. Views: 1 view. COMPARISON: CR XR chest 2V* [id number] 05/04/2023 5:36 PM FINDINGS: Lungs: Left lingular and left lower lobe airspace disease suspicious for pneumonia, stable compared with the chest radiograph done earlier in the evening on 05/04/2023. Pleural spaces: Stable small left pleural effusion. No pneumothorax. Heart/Mediastinum: Stable moderate enlargement of the cardiac silhouette. Mediastinal contours are unremarkable. Vasculature: Stable vascular calcifications in the aorta. Bones/joints: Unremarkable for age. XR/XR chest 1V portable [id number] IMPRESSION: 1. Left lingular and left lower lobe airspace disease suspicious for pneumonia, stable compared with the chest radiograph done earlier in the evening on 05/04/2023. Recommend followup chest imaging to insure resolution of these findings. 2. Stable small left pleural effusion. 3. Incidental/nonacute findings are listed in the report.
[2023-05-04 18:30] VITALS: BP 180/68; PULSE 95; RESP 18; TEMP 36.8; O2SAT 91; BMI 34.8
--- NOTE | 2023-05-04 18:47 | ECG_ITS ---
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 Measurements Intervals Buckley Rate: 93 P: 78 MT: 234 QRS: -39 QRSD: 123 T: 95 QT: 373 QTc: 464 Interpretive Statements SINUS RHYTHM WITH FIRST DEGREE AV BLOCK LEFT AXIS DEVIATION [QRS AXIS < -30] MODERATE INTRAVENTRICULAR CONDUCTION DELAY [105+ ms QRS DURATION, 80+ ms Q/S IN V1/V2, NO Q AND 60+ ms R IN I/aVL/V5/V6] NONSPECIFIC ST & T-WAVE ABNORMALITY Compared to ECG 02/05/2016 06:20:33 Intraventricular conduction delay now present T-wave abnormality now present Myocardial infarct finding no longer present Electronically Signed On 05-05-2023 13:32:47 FINISH FILER by Arcenio Morris M.D. [email or web address]
--- NOTE | 2023-05-04 18:58 | ED_ITS ---
HPI - SOB/Dyspnea 2 General: Chief Complaint: Shortness of Breath/Dyspnea Stated Complaint: sob vomit nausea cough urgent care called Time Seen by Provider: 05/04/23 18:27 Source: patient Mode of arrival: ambulatory Limitations: no limitations History of Present Illness: HPI Narrative: 82-year-old male who states that over th e last 2 days he has been having increasing shortness of breath especially when he lays down. States he is also had cough as well he denies any fever denies any chest pain he states that he started having vomiting last night and has had vomiting today he denies any fevers. Associated symptoms: Reports nausea and vomiting; Deny abdominal pain, chest pain or fever(s) Review of Systems 2 Const: Denies: fever(s), chills, body aches or change in appetite ENMT: Denies: throat pain or dental pain Card: Denies: chest pain Resp: Reports: dyspnea and non-productive cough GI: Reports: nausea and vomiting; Denies: abdominal pain or diarrhea : Denies: dysuria Musc: Denies: neck pain or back pain Skin/Breast: Denies: rash Neuro: Denies: headache(s) PFSH ED 2 PFSH: Medical History Anti-INDUSTRIAL REGISTERED NURSE antibodies present Duodenal ulcer CKD (chronic kidney disease), stage IV COPD (chronic obstructive pulmonary disease) Carotid artery disease without cerebral infarction Acquired left ventricular hypertrophy BPH (benign prostatic hyperplasia) Type 2 diabetes mellitus with diabetic polyneuropathy, with long-term current use of insulin Essential (primary) hypertension Obstructive sleep apnea Mixed hyperlipidemia Surgical History Status post colonoscopy (12/23/20) AV fistula H/O esophagogastroduodenoscopy (12/23/20) History of colonoscopy with polypectomy 2004 Hx of appendectomy History of arthroscopy of left shoulder Hx of bilateral cataract extraction Family History Father Cirrhosis of liver Other Diabetes Social History Smoking and tobacco/nicotine status: former use of tobacco/nicotine Second hand smoke exposure: Yes Alcohol intake: former Substance/Drug Use: never Household members: spouse Marital status: service: Yes branch: [employer] Current occupational status: retired 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 Exam 2 Const: COMMON NORMALS: no acute distress, patient oriented x3 and healthy appearing HENMT: COMMON NORMALS: normocephalic and atraumatic HEAD & SCALP: n ormocephalic and atraumatic Neck/C-Spine: COMMON NORMALS: full ROM and supple Chest: COMMONS NORMALS: normal inspection of the chest and normal palpation of entire chest wall Resp: COMMON NORMALS: No retractions EFFORT & INSPECTION: Yes tachypneic and Yes respiratory distress AUSCULTATION: rales Cardio: COMMON NORMALS: regular rate, regular rhythm and No murmurs present (Cardio) RATE: regular rate RHYTHM: regular rhythm GI: COMMON NORMALS: Normal to inspection, nondistended, normoactive bowel sounds present, Soft to palpation, non-tender and no masses PALPATION: Yes Soft to palpation Extremity: COMMON NORMALS: full ROM NARRATIVE EXTREMITY EXAM: 2+ edema Neuro: COMMON NORMALS: patient oriented x3, moves all extremities and no focal motor deficits Psych: COMMON NORMALS: mental status grossly normal, Normal thought process present and cooperative THOUGHT PROCESS: Normal thought process present Skin: COMMON NORMALS: no rashes or lesions noted and no wounds GENERAL SKIN EXAM: no rashes or lesions noted Course 2 Vital Signs: Vital signs: Vital Signs Temperature 98.2 F 05/04/23 18:30 Pulse Rate 95 05/04/23 18:30 Respiratory Rate 18 05/04/23 18:30 Blood Pressure 180/68 05/04/23 18:30 Pulse Oximetry 91 05/04/23 18:30 Oxygen Delivery Me thod Room Air 05/04/23 18:30 MDM - SOB/Dyspnea Medical Decision Making Patient presents here with shortness of breath does have lower extremity edema BNP is quite elevated likely new onset CHF he also has possible pneumonia on his x-ray we will diurese start antibiotics spoke to hospitalist will admit. Medical Records I reviewed the patient's medical records. Lab Data I reviewed the patient's lab results. 05/04/23 18:39 05/04/23 18:39 Labs/Radiology: Radiology Impressions Chest X-Ray 05/04/23 18:22 IMPRESSION: 1. Left lingular and left lower lobe airspace disease suspicious for pneumonia, stable compared with the chest radiograph done earlier in the evening on 05/04/2023. Recommend followup chest imaging to insure resolution of these findings. 2. Stable small left pleural effusion. 3. Incidental/nonacute findings are listed in the report. Laboratory Results WBC 12.18 10^3/uL (3.29-11.43) H 05/04/23 18:39 RBC 3.39 10^6/uL (3.85-5.65) L 05/04/23 18:39 Hgb 10.50 g/dL (11.27-16.99) L 05/04/23 18:39 Hct 32.3 % (37-53) L 05/04/23 18:39 MCV 95.3 fl (82-101) 05/04/23 18:39 MCH 31.0 pg (27-33) 05/04/23 18:39 MCHC 32.5 g/dL (30-55) 05/04/23 18:39 RDW 14.7 % (12.1-15.1) 05/04/23 18:39 Plt Count 182 10^3/cmm (157-399) 05/04/23 18:39 MPV 9.8 fL (7.4-10.4) 05/04/23 18:39 Neut % (Auto) 77.7 % 05/04/23 18:39 Lymph % (Auto) 9.9 % 05/04/23 18:39 [place] % (Auto) 10.2 % 05/04/23 18:39 Eos % (Auto) 1.3 % 05/04/23 18:39 Baso % (Auto) 0.5 % 05/04/23 18:39 Neut # (Auto) 9.46 10^3/uL (1.8-7.7) H 05/04/23 18:39 Lymph # (Auto) 1.2 10^3/uL (0.8-4.8) 05/04/23 18:39 [place] # (Auto) 1.2 10^3/uL (0.2-0.9) H 05/04/23 18:39 Eos # (Auto) 0.2 10^3/uL (0.0-0.8) 05/04/23 18:39 Baso # (Auto) 0.1 10^3/uL (0.0-0.1) 05/04/23 18:39 Nucleated RBC % (auto) 0 % 05/04/23 18:39 Nucleated RBCs # 0.0 /100WBC 05/04/23 18:39 Specimen Type Arterial 05/04/23 19:25 Sample Site Radial, right 05/04/23 19:25 ABG pH 7.37 (7.35-7.45) 05/04/23 19:25 ABG pCO2 28.9 mmHg (35-45) L 05/04/23 19:25 ABG pO2 71.5 mmHg (80.0-100.0) L 05/04/23 19:25 ABG HCO3 16.6 mmol/L (22-26) L 05/04/23 19:25 ABG Base Excess -7.6 mmol/L (-2.0-2.0) L 05/04/23 19:25 Hoang Test Pos 05/04/23 19:25 Hematocrit 31.3 % (42-52) L 05/04/23 19:25 O2 Delivery Device Nc 05/04/23 19:25 O2 Liters/Min 4.0 % 05/04/23 19:25 Boiler Operators Supervisor ID Wal[place] 05/04/23 19:25 Sodium 143 mmol/L (136-145) 05/04/23 18:39 Potassium 4.1 mmol/L (3.5-5.1) 05/04/23 18:39 Chloride 112 mmol/L (98-107) H 05/04/23 18:39 Carbon Dioxide 15 mmol/L (22-29) L 05/04/23 18:39 Anion Gap 20.1 (5-19) H 05/04/23 18:39 BUN 56 mg/dL (8-23) H 05/04/23 18:39 Creatinine 3.0 mg/dL (0.7-1.2) H 05/04/23 18:39 GFR Calculation Not Reportable 05/04/23 18:39 Glucose 110 mg/dL (65-115) 05/04/23 18:39 Calculated Osmolality 312 mOsm/kg (285-295) H 05/04/23 18:39 Calcium 8.9 mg/dL (8.5-10.5) 05/04/23 18:39 Total Bilirubin 1.0 mg/dL (0.15-1.2) 05/04/23 18:39 AST 22 U/L (0-40) 05/04/23 18:39 ALT 16 U/L (0-41) 05/04/23 18:39 Alkaline Phosphatase 55 U/L (40-130) 05/04/23 18:39 Troponin T Baseline 81 ng/L (0-15) H 05/04/23 18:39 NT-Pro-B Natriuret Pep 15689 pg/mL (0-450) H 05/04/23 18:39 Total Protein 6.7 g/dL (6.6-8.7) 05/04/23 18:39 Albumin 3.9 g/dL (3.5-5.2) 05/04/23 18:39 Globulin 2.8 g/dL (1.3-4.6) 05/04/23 18:39 Lipase 37 U/L (13-60) 05/04/23 18:39 All radiology interpretation(s) finalized by discharge EKG Data EKG 1: I personally reviewed and interpreted this EKG as follows: EKG Interpretation Date: 05/04/23 EKG interpretation time: 18:47 Interpretation: nsr hr 93 no stemi qrs 123 qtc 423 Critical Care Time 2 Critical Care Time: Critical Care Time: Yes Total Critical Care Time: 45 Attestation: The high probability of a clinically significant, sudden or life threatening deterioration of the patient's resp system(s) required my full and direct attention, intervention and personal management. The critical care time is as shown. This time is in addition to time spent performing any reported procedures but includes the following: [x] Data and vital sign review and interpretation [x] Patient assessment, examination and intervention [x] Documentation [x] Medication orders and management Discharge Plan Discharge Patient Disposition: Admitted As Inpatient Clinical Impression: Acute respiratory failure with hypoxia CHF (congestive heart failure) Qualifiers: Heart failure type: unspecified Heart failure chronicity: acute Qualified Code(s): I50.9 - Heart failure, unspecified Pneumonia Qualifiers: Aspiration pneumonia type: unspecified Laterality: left Lung location: lower lobe of lung Condition: Stable Coding Level of Care Code ED Living Supervisor for Juancarlos Ko
[2023-05-04 19:03] LABS: Albumin Level 3.9 g/dL (3.5-5.2); Alkaline Phosphatase 55 U/L (40-130); Anion Gap 20.1 (5-19); Aspartate Amino Transferase 22 U/L (0-40); Blood Urea Nitrogen 56 mg/dL (8-23); Calcium 8.9 mg/dL (8.5-10.5); Carbon Dioxide 15 mmol/L (22-29); Chloride 112 mmol/L (98-107); Globulin 2.8 g/dL (1.3-4.6); Glucose 110 mg/dL (65-115); Lipase 37 U/L (13-60); Osmolality Calculated 312 mOsm/kg (285-295); Potassium 4.1 mmol/L (3.5-5.1); Sodium 143 mmol/L (136-145); Total Protein 6.7 g/dL (6.6-8.7)
[2023-05-04 19:08] LABS: Basophils # 0.1 10^3/uL (0.0-0.1); Basophils % 0.5 %; Eosinophils # 0.2 10^3/uL (0.0-0.8); Eosinophils % 1.3 %; Hematocrit 32.3 % (37-53); Lymphocytes # 1.2 10^3/uL (0.8-4.8); Lymphocytes % 9.9 %; Mean Corpuscular HGB Conc 32.5 g/dL (30-55); Mean Corpuscular Volume 95.3 fl (82-101); Mean Platelet Volume 9.8 fL (7.4-10.4); Monocytes # 1.2 10^3/uL (0.2-0.9); Monocytes % 10.2 %; Neutrophils # 9.46 10^3/uL (1.8-7.7); Neutrophils % 77.7 %; Nucleated Red Blood Cells % 0 %; Platelet Count 182 10^3/cmm (157-399); Red Blood Count 3.39 10^6/uL (3.85-5.65); Red Cell Distribution Width 14.7 % (12.1-15.1); White Blood Count 12.18 10^3/uL (3.29-11.43)
[2023-05-04 19:20] LABS: Alanine Aminotransferase 16 U/L (0-41); Troponin(5th) Baseline 81 ng/L (0-15)
[2023-05-04 19:28] LABS: NT Pro B Type Natriuretic Pept 31952 pg/mL (0-450)
[2023-05-04 19:36] LABS: ABG PCO2 28.9 mmHg (35-45); ABG PH Result 7.37 (7.35-7.45); Arterial Blood Gas Hematocrit 31.3 % (42-52); Base Excess ABG -7.6 mmol/L (-2.0-2.0); Blood Gas Allen Test Pos; Blood Gas Operator Identificat WALCI; Blood Gas Sample Site Radial, right; Blood Gas Sample Type Arterial; HCO3 ABG 16.6 mmol/L (22-26); Oxygen Device NC; PO2 ABG 71.5 mmHg (80.0-100.0)
[2023-05-04] MEDS: FUROsemide 10 mg/mL SDV 4mL 40 MG IVP (20:05)
[2023-05-04] MEDS: cefTRIAXone 1,000 MG in sodium chloride 0.9% (plus) 50 ML 100 MG IV (20:08)
[2023-05-04 20:16] LABS: SARS Covid-2 Antigen negative (Negative)
[2023-05-04 20:27] LABS: Influenza A by IFA negative (Negative); Influenza B by IFA negative (Negative)
--- NOTE | 2023-05-04 20:28 | P.HP_ITS ---
Providers/Chief Complaint 2 Admitting Physician: Josue Oneil MD Primary Care Provider: Carolyn Tilley DO Chief Complaint: sob vomit nausea cough urgent care called History of Present Illness Geovanny Lujan is a 82 year old male with past medical history of hypertension, hyperlipidemia, type 2 diabetes mellitus, and diabetic foot, gout, carotid artery disease, COPD, CKD stage IV not on dialysis who had AV fistula placed few years ago presents to the ER today because of worsening difficulty in breathing for last few weeks. As per patient he has been having dyspnea on exertion for last few weeks but for last 2 or 3 days he started having difficulty in breathing even at rest or laying down. Denies any nausea, vomiting but does complain of chest heaviness on and off. On presentation to the ER he was found to be hypoxic requiring 4 to 5 L of oxygen supplementation to maintain saturation of 90%, getting short of breath on minimal ambulation or conversation. Denies any subjective fever fever or increased cough at home. Review of Systems 2 General: Reports: 10 or more systems reviewed and unremarkable except in HPI and below Const: Denies: fever(s), chills, body aches, change in appetite, change in weight, malaise, night sweats, diaphoresis, change in sleep pattern, daytime sleepiness or snoring Eyes: Denies: change in vision, blurry vision, photophobia, eye discomfort or eye discharge ENMT: Denies: throat pain, enlarged tonsils, hoarseness, mouth pain, oral sores, dry mouth, tinnitus, nasal congestion or post nasal drip Card: Denies: chest pain, palpitations, irregular heart rhythm, edema, swelling of feet/ankles, lightheadedness, syncope, pre-syncope, dyspnea on exertion, orthopnea, leg pain with exertion or acrocyanosis Resp: Denies: dyspnea, productive cough, non-productive cough, wheezing, stridor, pain on inspiration, change in phlegm color, hemoptysis or chest congestion GI: Denies: abdominal pain, nausea, vomiting, hematemesis, coffee ground emesis, dysphagia, heartburn, diarrhea, constipation, bloating, GI cramping, change in bowel habits, pain on defecation, hematochezia or melena : Denies: flank pain, difficulty urinating, dysuria, urinary frequency, urinary urgency, urinary hesitancy, urinary dribbling, difficulty starting urination, change in urine stream, nocturia or hematuria Musc: Denies: neck pain, back pain, extremity pain, joint pain, joint swelling, joint redness, joint stiffness or limited range of motion Neuro: Denies: headache(s), numbness in extremities, weakness in extremities, sensory changes, lack of coordination, difficulty walking, frequent falls, dizziness, vertigo, confusion, Slurred speech present, difficulty communicating thoughts or seizure-like activity Psych: Denies: anxiety, depression, mood swings, panic attacks, hopelessness or irritability Endo: Denies: polyuria, polydipsia, tired all the time, cold intolerance, excessive sweating, flushing or heat intolerance Travis/Lymph: Denies: easy bruising or easy bleeding All/Imm: Denies: tongue swelling, facial swelling or acute wheezing Medications/Allergies Home Medications Medication Instructions Recorded Confirmed Last Taken Type aspirin 81 mg tablet,delayed 81 mg PO DAILY 06/17/19 04/18/23 1 Day Ago History release (Adult Low Dose Aspirin) ~12/22/20 cholecalciferol (vitamin D3) 50 2,000 unit PO DAILY 06/17/19 04/18/23 1 Day Ago History mcg (2,000 unit) capsule ~12/22/20 diabetic shoes #1 ea 12/16/19 04/18/23 Unknown Rx acetaminophen 500 mg tablet 500 mg PO TID PRN Pain 03/24/20 04/18/23 1 Day Ago History ~12/22/20 pen needle, diabetic 32 gauge x #270 ea 08/02/20 04/18/23 Unknown Rx (BD [place] 2nd Gen Pen Needle) blood-glucose meter,continuous #1 ea 12/13/21 04/18/23 Unknown Rx (Dexcom G6 Heel Turner) diphenhydramine HCl 50 mg tablet 100 mg PO QPM PRN Sleep 02/24/22 04/18/23 Unknown History omega 8-vor-sob-fish oil 300 1 cap PO DAILY 02/24/22 04/18/23 Unknown History mg-1,000 mg capsule (Fish Oil) diabetic shoes #1 ea 03/09/22 04/18/23 Unknown Rx miscellaneous medical supply 1 ea miscellaneous DAILY #1 ea 06/03/22 04/18/23 Unknown Rx CPAP, mask, and tubing #1 ea 06/13/22 04/18/23 Unknown Rx furosemide 40 mg tablet See Rx Instructions .Route 08/07/22 04/18/23 Unknown Rx .COMPLEX #180 tabs hydralazine 100 mg tablet 50 mg (1/2 x 100 mg) PO 10/16/22 04/18/23 Unknown Rx DIRECTED #135 tabs blood-glucose sensor (Dexcom G6 #9 ea 10/23/22 04/18/23 Unknown Rx Sensor device) insulin aspart U-100 100 unit/mL See Rx Instructions .Route 11/22/22 04/18/23 Unknown Rx (3 mL) subcutaneous pen (Novolog .COMPLEX #15 mL FlexPen U-100 Insulin aspart) atorvastatin 40 mg tablet See Rx Instructions .Route 11/29/22 04/18/23 Unknown Rx .COMPLEX #90 tabs losartan 50 mg tablet See Rx Instructions .Route 11/29/22 04/18/23 Unknown Rx .COMPLEX #180 tabs tamsulosin 0.4 mg capsule See Rx Instructions .Route 11/29/22 04/18/23 Unknown Rx .COMPLEX #90 caps amlodipine 10 mg tablet See Rx Instructions .Route 01/02/23 04/18/23 Unknown Rx .COMPLEX #90 tabs metoprolol succinate 50 mg See Rx Instructions .Route 01/02/23 04/18/23 Unknown Rx tablet,extended release 24 hr .COMPLEX #90 tabs hydroxychloroquine 200 mg tablet 200 mg PO BID #180 tabs 02/07/23 04/18/23 Unknown Rx insulin glargine 100 unit/mL (3 See Rx Instructions .Route 02/07/23 04/18/23 Unknown Rx mL) subcutaneous pen (Lantus .COMPLEX #45 mL Solostar U-100 Insulin) blood-glucose transmitter (Dexcom #3 ea 02/19/23 04/18/23 Unknown Rx G6 Transmitter device) ferrous sulfate 325 mg (65 mg 325 mg PO DAILY 03/16/23 04/18/23 Unknown History iron) tablet allopurinol 100 mg tablet See Rx Instructions .Route 04/23/23 Unknown Rx .COMPLEX #45 tabs Allergies Allergy/AdvReac Type Severity Reaction Status Date / Time No Known Allergies Allergy Verified 05/04/23 16:48 PFSH Acute 2 PFSH: Medical History (Updated 05/04/23 @ 22:39 by Josue Oneil MD) 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 Long-term insulin use Hypoglycemia due to insulin History of stroke CKD stage 4 due to type 2 diabetes mellitus 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 Duodenal ulcer CKD (chronic kidney disease), stage IV COPD (chronic obstructive pulmonary disease) Carotid artery disease without cerebral infarction Acquired left ventricular hypertrophy BPH (benign prostatic hyperplasia) Type 2 diabetes mellitus with diabetic polyneuropathy, with long-term current use of insulin Essential (primary) hypertension Obstructive sleep apnea Mixed hyperlipidemia Surgical History (Updated 05/04/23 @ 20:35 by Josue Oneil MD) Status post colonoscopy (12/23/20) AV fistula H/O esophagogastroduodenoscopy (12/23/20) History of colonoscopy with polypectomy 2004 Hx of appendectomy History of arthroscopy of left shoulder Hx of bilateral cataract extraction Family History Father Cirrhosis of liver Other Diabetes Social History Smoking and tobacco/nicotine status: former use of tobacco/nicotine Second hand smoke exposure: Yes Alcohol intake: former Substance/Drug Use: never Household members: spouse Marital status: service: Yes branch: [employer] Current occupational status: retired 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/Wt Last Vital Signs Temp 98.2 F 05/04/23 18:30 Pulse 95 05/04/23 18:30 Resp 18 05/04/23 18:30 BP 180/68 05/04/23 18:30 Pulse Ox 91 05/04/23 18:30 O2 Del Method Room Air 05/04/23 18:30 Weight last 48 hrs Weight 113.398 kg Physical Exam 2 Narrative: General: No acute distress, AO x3, NC oxygen supplementation, obese HEENT: PERRLA, pupils bilaterally equal and reactive Chest: Bilateral bronchial breath sounds with occasional rhonchi, fine crackles to the mid lungs bilaterally CVS: S1-S2 regular, no murmurs, no tachycardia, no gallops, no rubs Abdomen: Soft, nontender, no organomegaly, bowel sounds present, morbidly obese Neuro: No focal deficits, no facial deformity, AO x3, power 5/5 in all limbs Extremity: Bilateral pedal edema 1+ Data 05/04/23 18:39 05/04/23 18:39 A&P Assessment and plan (1) Acute respiratory failure with hypoxia: Most likely in setting of CHF exacerbation. Patient also does have history of COPD and obstructive sleep apnea. BiPAP as needed. For now start patient on high flow nasal cannula given increased work of breathing. Oxygen supplementation keeping saturation over 90%. Fluid restriction up to 1500 cc. Luu catheterization. Strict input output charting, daily weights. Already received 40 mg of IV Lasix in the ER. Will give 60 mg IV Lasix more. Check D-dimer, echocardiogram. Ipratropium, Xopenex every 6 hours, Pulmicort twice daily. Hold off on steroids for now. Patient does have mild leukocytosis. Pneumonia less likely for now. Check procalcitonin, sputum culture, MRSA swab, blood culture, urine Legionella, bacterial antigen. Check CT chest without contrast. If D-dimer is elevated can plan for VQ scan. Patient does have history of CKD so we will try to avoid contrast study for now. For now empirically start patient on treatment for community-acquired pneumonia with IV ceftriaxone and oral azithromycin. (2) CHF (congestive heart failure): Qualifiers: Heart failure chronicity: acute Heart failure type: unspecified Qualified Code(s): I50.9 - Heart failure, unspecified (3) COPD (chronic obstructive pulmonary disease): (4) Obstructive sleep apnea: (5) CKD (chronic kidney disease), stage IV: Past history. Baseline creatinine 3-3.2. As high as 3.8 in the past. Patient does have AV fistula in place but never on dialysis. Medical reconciliation done for nephrotoxic drugs. Check urine lites, urine creatinine. Patient needs aggressive IV diuresis for now. Patient is agreeable for short- term dialysis if needed. Will try if IV diuresis for now if does not work we will consult nephrology for possible dialysis. Ulu catheterization Renal ultrasound. (6) Essential (primary) hypertension: With history of LVH on echocardiogram. Goal blood pressure less than 140/90 mmHg. Continue all home antihypertensive including amlodipine, hydralazine at home dose. Hold off on losartan for now. Will uptitrate as for goal blood pressures. (7) Type 2 diabetes mellitus with diabetic polyneuropathy, with long-term current use of insulin: Check A1c. Insulin sliding scale at moderate dose protocol. Continue with home dose of glargine. (8) Iron deficiency anemia: (9) AV fistula: (10) Dyspnea on exertion: (11) Acquired left ventricular hypertrophy: Plan CODE STATUS: Discussed in detail with the patient. will be the DPOA. Patient does not want any kind of resuscitation measures or life support. DNR/DNI. Heparin 5000 every 12 hourly for DVT prophylaxis Protonix for PUD prophylaxis Cardiac carb consistent diet. Admit to CSU. Attestations 2 Medical Necessity Statement*: Admission for more than 2 midnights for management of hypoxic respiratory failure in setting of congestive heart failure in a patient with history of end- stage renal disease not on hemodialysis with fistula in situ, COPD and obstructive sleep apnea with uncontrolled hypertension Diagnoses Acute respiratory failure with hypoxia J96.01 CHF (congestive heart failure) I50.9 Heart failure chronicity: acute Heart failure type: unspecified COPD (chronic obstructive pulmonary disease) J44.9 Obstructive sleep apnea G47.33 CKD (chronic kidney disease), stage IV N18.4 Essential (primary) hypertension I10 Type 2 diabetes mellitus with diabetic polyneuropathy, with long-term current use of insulin E11.42; Z79.4 Iron deficiency anemia D50.9 AV fistula I77.0 Dyspnea on exertion R06.00 Acquired left ventricular hypertrophy I51.7
--- NOTE | 2023-05-04 20:31 | CTR_ITS ---
PROCEDURE INFORMATION: Exam: CT Chest Without Contrast; Diagnostic Exam date and time: 05/04/2023 9:45 PM Age: 82 years old Clinical indication: Shortness of breath; Patient HX: SOB with hypoxia. History of chf and copd. ; Additional info: Copd/pna TECHNIQUE: Imaging protocol: Diagnostic computed tomography of the chest without contrast. Sagittal and coronal reformatted images were created and reviewed. Radiation optimization: All CT scans at this facility use at least one of these dose optimization techniques: automated exposure control; mA and/or kV adjustment per patient size (includes targeted exams where dose is matched to clinical indication); or iterative reconstruction. REPORTING DATA: Count of CT and Cardiac NM exams in prior 12 months: This patient has received 0 known CTs and 0 known cardiac nuclear medicine studies in the 12 months prior to the current study. COMPARISON: CR (CHEST, ) 05/04/2023 6:58 PM RADIATION DOSE METRICS: Total DLP (mGy-cm): 689.84 FINDINGS: Limitations: Evaluation of the mediastinum and vasculature is limited without intravenous contrast. Thyroid: Smell low-density nodules in both thyroid lobes, the largest in the left lobe measures 1.1 x 0.8 cm (series 3, image 6). Trachea: Tracheobronchial structures are patent. Lungs: Left upper lobe, lingular, and lower lobe airspace disease with reticulonodular interstitial thickening suspicious for pneumonia, including atypical organisms. Compressive atelectasis in the right and left lower lobes. No pulmonary parenchymal nodules or masses. Pleural spaces: Moderate bilateral pleural effusions. No pneumothorax. Heart: Stable moderate enlargement of the heart. Calcification of the aortic valve and mitral valve annulus. Coronary arteries: Extensive atherosclerotic calcification in the coronary arteries. Esophagus: The esophagus is unremarkable. Mediastinal space: No mediastinal hematoma. No pneumomediastinum. Lymph nodes: Multiple enlarged mediastinal lymph nodes. The largest measures 1.9 cm in short axis (series 3, image 28). Vasculature: Moderate atherosclerotic changes in the visualized arteries. No evidence for aortic aneurysm. Pulmonary arteries are unremarkable. Pulmonary veins are unremarkable. Liver: The visualized liver is unremarkable. Gallbladder and bile ducts: Single gallstone in the gallbladder. No dilatation of the visualized bile ducts. Pancreas: Mild atrophy of the visualized pancreatic parenchyma. No pancreatic ductal dilatation. Spleen: The spleen is unremarkable. Adrenal glands: The right and left adrenal glands are unremarkable. Kidneys and ureters: The visualized right and left kidneys are unremarkable. Bones/joints: Multilevel degenerative changes of varying severity in the visualized spine. Soft tissues: No acute abnormality in the extrathoracic soft tissues. CT/CT chest wo con [id number] IMPRESSION: 1. Left upper lobe, lingular, and lower lobe airspace disease with reticulonodular interstitial thickening suspicious for pneumonia, including atypical organisms. Recommend followup chest imaging to insure resolution of these findings. 2. Moderate bilateral pleural effusions. 3. Compressive atelectasis in the right and left lower lobes. 4. Cholelithiasis. 5. Smell low-density nodules in both thyroid lobes, the largest in the left lobe measures 1.1 x 0.8 cm (series 3, image 6). No follow-up is recommended. 6. Nonspecific mediastinal lymphadenopathy, which could be reactive in nature. Followup imaging recommended to insure stability/resolution however. 7. Incidental/nonacute findings are listed in the report. COMMENTS: Consistent with the [employer]'s Incidental Findings Committee white paper (J Am Ofelia Radiol 2015): In patients aged 35 years and older with an incidental thyroid nodule equal to or greater than 1.[address], MRI or extrathyroidal US, further evaluation with dedicated thyroid US is recommended for patients with normal life expectancy and without comorbidities. For smaller nodules without suspicious features, no further evaluation or follow up is recommended.
[2023-05-04 20:42] VITALS: PULSE 97; RESP 16; O2SAT 95
[2023-05-04] MEDS: FUROsemide 10 mg/mL SDV 10mL 60 MG IVP (20:50)
[2023-05-04 20:51] LABS: D Dimer 2.56 ug/mLFEU (0-0.59)
[2023-05-04 20:52] LABS: Troponin 5 2HR 96.24 ng/L (0-15)
[2023-05-04] MEDS: azithromycin 500 MG in sodium chloride 0.9% 250 ML 250 MG IV (20:53)
--- NOTE | 2023-05-04 20:53 | ECG_ITS ---
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 Measurements Intervals [place] Rate: 85 P: 43 VA: 217 QRS: -43 QRSD: 118 T: 93 QT: 401 QTc: 478 Interpretive Statements SINUS RHYTHM WITH FIRST DEGREE AV BLOCK LEFT AXIS DEVIATION [QRS AXIS < -30] MODERATE INTRAVENTRICULAR CONDUCTION DELAY [105+ ms QRS DURATION, 80+ ms Q/S IN V1/V2, NO Q AND 60+ ms R IN I/aVL/V5/V6] NONSPECIFIC T-WAVE ABNORMALITY Compared to ECG 05/04/2023 18:47:31 No significant changes Electronically Signed On 05-05-2023 13:34:15 AMBULATORY SERVICE REPRESENTATIVE by Arcenio Morris M.D. [id number]
[2023-05-04 21:00] LABS: Troponin 5 2HR Delta 15.24 ABS# (0-10)
[2023-05-04 21:15] LABS: Procalcitonin 0.13 ng/mL (0-0.5); Vitamin B12 401 pg/mL (232-1245)
[2023-05-04 22:17] VITALS: PULSE 78
[2023-05-04 22:19] VITALS: O2SAT 95
[2023-05-04 22:22] VITALS: BP 131/62; PULSE 83; RESP 25; TEMP 37.2; O2SAT 94
[2023-05-04 22:32] LABS: Add Urine Microscopic? YES; Bilirubin Urine Neg (Negative); Blood Urine 2+ (Negative); Glucose Urine UA Norm (Normal); Ketones Urine 1+ (Negative); Leukocyte Esterase Urine Negative (Negative); Nitrate Urine Negative (Negative); Protein Urine 3+ (Negative); Specific Gravity, Urine 1.015 (1.005-1.030); Squamous Epithelial Cell Urine 0-4 /hpf (0-5); Urine Appearance Hazy (CLEAR); Urine Color Yellow (Yellow); Urobilinogen Urine Norm (Negative); pH Urine 5 (5-7)
[2023-05-04 22:33] LABS: Amorphous Sediment Urine 1+ /hpf; Bacteria Urine TRACE /hpf; Fine Granular Casts Urine 0-4 /lpf; Hyaline Casts Urine 0-4 /lpf; Mucus Urine 1+ /hpf
[2023-05-04 22:42] LABS: Thyroid Stimulating Hormone 1.24 uIU/mL (0.27-4.20)
[2023-05-04 22:42] LABS: Urine Creatinine 94 mg/dL (39-259)
[2023-05-04 22:46] LABS: Glucose Point of Care 106 mg/dL (70-110)
[2023-05-04 23:16] LABS: Eosinophil Urine No Eosinophils Seen; Urine Eosinophil Count 0 (0-0)
[2023-05-04] MEDS: amlodipine 10 mg Tablet PO (23:23)
[2023-05-04] MEDS: atorvastatin 40 mg Tablet PO (23:24)
[2023-05-04] MEDS: tamsulosin 0.4 mg Capsule PO (23:24)
[2023-05-04] MEDS: heparin 5,000 unit/mL INJ 1 mL 5000 UNIT SUBCUT (23:24)
[2023-05-04] MEDS: metoprolol succinate ER (24 HR) 50 mg Tablet PO (23:24)
[2023-05-05] VITALS (16 sets, daily range): BP systolic 128–153; BP diastolic 55–72; PULSE 58–84; RESP 16–23; TEMP 36.6–36.8; O2SAT 88–95; BMI 36.6
--- NOTE | 2023-05-05 00:53 | ECG_ITS ---
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 Measurements Intervals [place] Rate: 81 P: 66 AL: 239 QRS: 141 QRSD: 116 T: 7 QT: 406 QTc: 473 Interpretive Statements SINUS RHYTHM WITH FIRST DEGREE AV BLOCK POSSIBLE RIGHT VENTRICULAR HYPERTROPHY [SOME/ALL OF: PROMINENT R IN V1, LATE TRANSITION, RAD, JORGITO, SSS] Compared to ECG 05/04/2023 21:03:08 Left-axis deviation no longer present Intraventricular conduction delay no longer present T-wave abnormality no longer present Electronically Signed On 05-05-2023 13:34:03 AIRCRAFT DETAIL DRAFTSPERSON by Arcenio Morris M.D. [id number]
[2023-05-05] MEDS: ipratropium-albuterol 3 mL Neb INHALATION ×4 (01:22→21:02)
[2023-05-05 01:23] LABS: Troponin 5 6HR 199.7 ng/L (0-15)
[2023-05-05 01:24] LABS: Troponin 5 6HR Delta 118.7 ng/L (0-12)
[2023-05-05 03:10] LABS: Basophils % 0.4 %; Eosinophils % 0.1 %; Lymphocytes # 0.8 10^3/uL (0.8-4.8); Mean Corpuscular HGB Conc 32.2 g/dL (30-55); Mean Corpuscular Hemoglobin 30.7 pg (27-33); Mean Corpuscular Volume 95.4 fl (82-101); Mean Platelet Volume 9.6 fL (7.4-10.4); Monocytes # 1.3 10^3/uL (0.2-0.9); Monocytes % 11.8 %; Neutrophils # 8.86 10^3/uL (1.8-7.7); Neutrophils % 80.2 %; Nucleated Red Blood Cells % 0 %; Platelet Count 149 10^3/cmm (157-399); Red Blood Count 2.83 10^6/uL (3.85-5.65); Red Cell Distribution Width 14.6 % (12.1-15.1); White Blood Count 11.03 10^3/uL (3.29-11.43)
[2023-05-05 03:23] LABS: Estmated Average Glucose 123; Hemoglobin A1C 5.9 % (4.0-6.0)
[2023-05-05] MEDS: heparin drip 25,000 UNIT/500 ML PREMIX 34 UNIT IV (03:24)
[2023-05-05] MEDS: heparin 5,000 unit/mL INJ 1 mL IV (03:26)
[2023-05-05 03:28] LABS: C Reactive Protein 51.1 mg/L (0.0-4.9)
[2023-05-05 03:29] LABS: Alanine Aminotransferase 15 U/L (0-41); Albumin Level 3.3 g/dL (3.5-5.2); Alkaline Phosphatase 43 U/L (40-130); Anion Gap 19.3 (5-19); Aspartate Amino Transferase 26 U/L (0-40); Blood Urea Nitrogen 59 mg/dL (8-23); Calcium 8.2 mg/dL (8.5-10.5); Carbon Dioxide 16 mmol/L (22-29); Chloride 111 mmol/L (98-107); Globulin 2.2 g/dL (1.3-4.6); Glucose 143 mg/dL (65-115); Magnesium 1.8 mg/dL (1.7-2.3); Osmolality Calculated 313 mOsm/kg (285-295); Phosphorus 5.1 mg/dL (2.5-4.5); Potassium 4.3 mmol/L (3.5-5.1); Sodium 142 mmol/L (136-145); Total Bilirubin 0.7 mg/dL (0.15-1.2); Total Protein 5.5 g/dL (6.6-8.7)
[2023-05-05 03:34] LABS: Procalcitonin 0.36 ng/mL (0-0.5)
[2023-05-05 03:43] LABS: Folate Level 7.7 ng/mL (4.5-32.2)
--- NOTE | 2023-05-05 06:00 | USCV_ITS ---
Geovanny Lujan Age: 82 Gender: M : 1940 Exam Date: 05/05/2023 06:55 Ordering Phys: Josue Oneil MD Technologist: Rubén Vanegas Exam Location: [facility] [place] Indication: chf BP: 139 / 68 HR: 65 Rhythm: Sinus Technical Quality: Adequate MEASUREMENTS (Male / Female) Normal Values 2D ECHO LVOT Diameter 2.1 cm LV Ejection Fraction MOD 2C 47.8 % LV Ejection Fraction 2C AL 48.3 % LA Diameter 4.2 cm LA Width 5.1 cm LA Height 5.5 cm RA Width 4.6 cm RA Height 5.7 cm Aorta at Sinotubular Diameter 2.7 cm IVC Diameter 2.5 cm M-MODE Aortic Annulus Diameter 3.2 cm LA Ao Ratio MM 1.4 MV E Point Septal Separation 1.0 cm DOPPLER AV Peak Velocity 158.3 cm/s LVOT Peak Velocity 87.0 cm/s AV Area Cont Eq vti 1.9 cm squared AV Area Cont Eq pk 1.8 cm squared MV Peak Velocity 144.0 cm/s MV Area PHT 5.0 cm squared Mitral E to A Ratio 0.8 MV E' Velocity 46.5 cm/s Mitral E to MV E' Ratio 10.9 Mitral E to LV E' Lateral Ratio 12.7 Mitral E to LV E' Septal Ratio 9.6 TR Peak Velocity 328.2 cm/s TR Peak Gradient 43.1 mmHg TR Mean Velocity 266.0 cm/s TR Mean Gradient 30.1 mmHg TR Velocity Time Integral 88.5 cm Right Atrial Pressure 3.0 mmHg Pulmonary Artery Systolic Pressu 46.1 mmHg PV Peak Velocity 100.0 cm/s RV Acceleration Time 0.1 s RV Ejection Time 0.3 s RV AcT/ET 0.3 FINDINGS Left Ventricle Left ventricle is normal size. LV systolic function is mildly reduced with EF of 45-50%. Mild global hypokinesis seen. Grade 1 diastolic dysfunction. Right Ventricle Normal in size and function Right Atrium Normal size Left Atrium Dilated Mitral Valve Mitral valve is thickened. Mild mitral regurgitation Aortic Valve Aortic valve is thickened. No significant stenosis or regurgitation seen. Tricuspid Valve Mild tricuspid regurgitation. Insufficient TR jet to calculate RVSP Pulmonic Valve Not well-visualized Pericardium Normal Aorta Normal in size IVC Dilated CONCLUSIONS LV systolic function mildly reduced with EF of 45 to 50%. Grade 1 diastolic dysfunction. Left atrial dilation Mild mitral regurgitation Mild tricuspid regurgitation IVC is dilated Compared to prior echocardiogram from 2021, LV systolic function has decreased slightly and is mildly reduced now Arcenio Morris MD (Electronically Signed) Final Date: 05 May 2023 11:30 S
--- NOTE | 2023-05-05 06:00 | USR_ITS ---
PROCEDURE INFORMATION: Exam: US Retroperitoneal; Complete; Kidneys and Bladder Exam date and time: 05/05/2023 7:36 AM Age: 82 years old Clinical indication: Condition or disease; Kidney or ureter condition; Chronic kidney disease or failure; Not specified; Additional info: Ckd TECHNIQUE: Imaging protocol: Real-time ultrasound of the retroperitoneum with image documentation. Complete exam focused on the kidneys and bladder. COMPARISON: US renal BI* [id number] 05/01/2019 2:36 PM FINDINGS: Pleural spaces: Right pleural effusion incidentally noted. Right kidney: Normal. No stones. No hydronephrosis. Left kidney: Normal. No stones. No hydronephrosis. Urinary bladder: Unremarkable. US/US renal BI* [id number] IMPRESSION: Unremarkable kidneys and bladder.
--- NOTE | 2023-05-05 06:00 | USR_ITS ---
PROCEDURE INFORMATION: Exam: US Duplex Lower Extremity Veins, Bilateral Exam date and time: 05/05/2023 7:22 AM Age: 82 years old Clinical indication: Abnormal findings; Abnormal lab test; Elevated d-dimer; Additional info: Elevated dimer TECHNIQUE: Imaging protocol: Real-time duplex ultrasound of the bilateral extremities with 2-D honeycutt scale, color Doppler flow and spectral waveform analysis including responses to compression and other maneuvers (when performed) with image documentation. Complete exam focused on the lower extremity veins. COMPARISON: US renal BI* [id number] 05/01/2019 2:36 PM FINDINGS: Right deep veins: Unremarkable. The common femoral, femoral, proximal profunda femoral and popliteal veins are patent without thrombus. Normal Doppler waveforms. Normal compressibility and/or augmentation response. Left deep veins: Unremarkable. The common femoral, femoral, proximal profunda femoral and popliteal veins are patent without thrombus. Normal Doppler waveforms. Normal compressibility and/or augmentation response. Superficial veins: Bilateral saphenofemoral junctions are patent without thrombus. Soft tissues: Unremarkable. US/[place] [id number] IMPRESSION: No evidence of deep vein thrombosis.
[2023-05-05 06:19] LABS: Glucose Point of Care 138 mg/dL (70-110)
[2023-05-05] MEDS: aspirin 81 mg EC Tablet PO (08:38)
[2023-05-05] MEDS: allopurinol 100 mg Tablet 50 MG PO (08:38)
[2023-05-05] MEDS: metoprolol succinate ER (24 HR) 50 mg Tablet PO (08:39)
[2023-05-05] MEDS: amlodipine 10 mg Tablet PO (08:39)
[2023-05-05] MEDS: ferrous sulfate EC 325 mg Tablet PO (08:39)
[2023-05-05] MEDS: hyDRALAzine 50 mg Tablet PO ×2 (08:39→20:35)
[2023-05-05] MEDS: tamsulosin 0.4 mg Capsule PO (08:40)
[2023-05-05] MEDS: pantoprazole 40 mg SDV IVP ×2 (08:45→20:32)
--- NOTE | 2023-05-05 09:56 | P.CONIM_ITS ---
Providers/Reason For Consult 2 Consulting Physician/Specialty*: Arcenio Morris MD/ Cardiology Reason for Consult*: NSTEMI Requesting Physician: Dr Oneil Attending Physician: Josue Oneil MD Primary Care Provider: Carolyn Tilley DO History of Present Illness History of Present Illness Geovanny Lujan is a 82 year old male with past medical history of diabetes, hypertension, hyperlipidemia, CKD stage IV-V, was presented with worsening dyspnea on exertion for the last 3 to 4 days. Constipation he also feels occasional chest tightness. His initial troponin was 81 that has trended up to 200 at 6 hours. His baseline creatinine is around 3. Today it was 3.3. He has been started on diuretics. Currently no active chest pain. Review of Systems 2 Const: Denies: fever(s), chills, body aches or change in appetite ENMT: Denies: throat pain or dental pain Card: Denies: chest pain Resp: Reports: dyspnea and non-productive cough GI: Reports: nausea and vomiting; Denies: abdominal pain or diarrhea : Denies: dysuria Musc: Denies: neck pain or back pain Skin/Breast: Denies: rash Neuro: Denies: headache(s) Medications/Allergies Home Medications Medication Instructions Recorded Confirmed Last Taken Type aspirin 81 mg tablet,delayed 81 mg PO DAILY 06/17/19 05/04/23 05/04/23 08:00 History release (Adult Low Dose Aspirin) cholecalciferol (vitamin D3) 50 2,000 unit PO DAILY 06/17/19 05/04/23 05/04/23 08:00 History mcg (2,000 unit) capsule diabetic shoes #1 ea 12/16/19 05/04/23 Unknown Rx acetaminophen 500 mg tablet 500 mg PO TID PRN Pain 03/24/20 05/04/23 1 Day Ago History ~12/22/20 pen needle, diabetic 32 gauge x #270 ea 08/02/20 05/04/23 Unknown Rx (BD [place] 2nd Gen Pen Needle) blood-glucose meter,continuous #1 ea 12/13/21 05/04/23 Unknown Rx (Dexcom G6 Painter [employer] Grader Cork) diphenhydramine HCl 50 mg tablet 100 mg PO QPM PRN Sleep 02/24/22 05/04/23 Unknown History omega 8-clf-lcz-fish oil 300 1 cap PO DAILY 02/24/22 05/04/23 05/04/23 08:00 History mg-1,000 mg capsule (Fish Oil) diabetic shoes #1 ea 03/09/22 05/04/23 Unknown Rx miscellaneous medical supply 1 ea miscellaneous DAILY #1 ea 06/03/22 05/04/23 Unknown Rx CPAP, mask, and tubing #1 ea 06/13/22 05/04/23 Unknown Rx blood-glucose sensor (Dexcom G6 #9 ea 10/23/22 05/04/23 Unknown Rx Sensor device) hydroxychloroquine 200 mg tablet 200 mg PO BID #180 tabs 02/07/23 05/04/23 05/04/23 08:00 Rx blood-glucose transmitter (Dexcom #3 ea 02/19/23 05/04/23 Unknown Rx G6 Transmitter device) ferrous sulfate 325 mg (65 mg 325 mg PO DAILY 03/16/23 05/04/23 05/04/23 08:00 History iron) tablet allopurinol 100 mg tablet 50 mg PO DAILY 05/04/23 05/04/23 05/04/23 08:00 History amlodipine 10 mg tablet 10 mg PO DAILY 05/04/23 05/04/23 05/04/23 23:32 History atorvastatin 40 mg tablet 40 mg PO BEDTIME 05/04/23 05/04/23 05/04/23 23:33 History furosemide 40 mg tablet 40 mg PO BID 05/04/23 05/04/23 05/04/23 08:00 History hydralazine 50 mg tablet 50 mg PO TID 05/04/23 05/04/23 05/04/23 08:00 History insulin aspart U-100 100 unit/mL 5 unit SUBCUT TIDWM 05/04/23 05/04/23 Unknown History (3 mL) subcutaneous pen insulin glulisine U-100 100 50 unit SUBCUT QAM 05/04/23 05/04/23 Unknown History unit/mL subcutaneous pen losartan 50 mg tablet 50 mg PO BID 05/04/23 05/04/23 05/04/23 08:00 History metoprolol succinate 50 mg 50 mg PO DAILY 05/04/23 05/04/23 05/04/23 23:42 History tablet,extended release 24 hr tamsulosin 0.4 mg capsule 0.4 mg PO DAILY 05/04/23 05/04/23 05/04/23 23:41 History Allergies Allergy/AdvReac Type Severity Reaction Status Date / Time No Known Allergies Allergy Verified 05/04/23 16:48 Current Medications Generic Name Dose Route Start Last Admin Trade Name Freq PRN Reason Stop Dose Admin Albuterol/Ipratropium 3 ml 05/05/23 02:00 05/05/23 08:59 Ipratropium-Albuterol 3 Ml Neb INHALATION 3 ml Q6H.RESP ROSELIA Administration Allopurinol 50 mg 05/05/23 09:00 05/05/23 08:38 Allopurinol 100 Mg Tablet PO 50 mg DAILY ROSELIA Administration Amlodipine Besylate 10 mg 05/05/23 09:00 05/05/23 08:39 Amlodipine 10 Mg Tablet PO 10 mg DAILY ROSELIA Administration Aspirin 81 mg 05/05/23 09:00 05/05/23 08:38 Aspirin 81 Mg Ec Tablet PO 81 mg DAILY ROSELIA Administration Budesonide 0.5 mg 05/05/23 08:00 05/05/23 08:59 Budesonide 0.5 Mg/2 Ml Neb INHALATION Not Given BID.RESPIRATORY ROSELIA Ferrous Sulfate 325 mg 05/05/23 09:00 05/05/23 08:39 Ferrous Sulfate Ec 325 Mg Tablet PO 325 mg DAILY ROSELIA Administration Heparin Sodium (Porcine) 0 unit 05/05/23 01:54 05/05/23 03:26 Heparin 5,000 Unit/Ml Inj 1 Ml IV 6,000 unit PRN PRN Administration Heparin weight-base protocol Protocol Hydralazine HCl 50 mg 05/05/23 09:00 05/05/23 08:39 Hydralazine 50 Mg Tablet PO 50 mg TID ROSELIA Administration Azithromycin 500 mg/ Sodium 250 mls @ 250 mls/hr 05/04/23 19:45 05/04/23 22:24 Chloride IV Infused Q24H ROSELIA Infusion Protocol Heparin Sodium/Sodium Chloride 25,000 unit in 500 mls @ 0 mls/hr 05/05/23 02:00 05/05/23 03:24 Heparin Drip IV 14.14 unit/kg/hr .Q0M ROSELIA 34 mls/hr Administration Protocol Per Protocol Insulin Human Lispro 0 unit 05/04/23 22:09 05/05/23 07:02 Insulin Lispro 100 Unit/1 Ml SUBCUT Not Given WM&BEDTIME ROSELIA Protocol Metoprolol Succinate 50 mg 05/05/23 09:00 05/05/23 08:39 Metoprolol Succinate Er (24 Hr) 50 Mg Tablet PO 50 mg DAILY ROSELIA Administration Pantoprazole Sodium 40 mg 05/05/23 08:15 05/05/23 08:45 Pantoprazole 40 Mg Sdv IVP 40 mg Q12H ROSELIA Administration Tamsulosin HCl 0.4 mg 05/05/23 09:00 05/05/23 08:40 Tamsulosin 0.4 Mg Capsule PO 0.4 mg DAILY ROSELIA Administration PFSH Acute 2 PFSH: Medical History (Updated 05/06/23 @ 22:20 by Luiza Munoz MD) 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 Long-term insulin use Hypoglycemia due to insulin History of stroke 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 Duodenal ulcer CKD (chronic kidney disease), stage IV COPD (chronic obstructive pulmonary disease) Carotid artery disease without cerebral infarction Acquired left ventricular hypertrophy BPH (benign prostatic hyperplasia) Type 2 diabetes mellitus with diabetic polyneuropathy, with long-term current use of insulin Essential (primary) hypertension Obstructive sleep apnea Mixed hyperlipidemia Surgical History (Updated 05/04/23 @ 20:35 by Josue Oneil MD) Status post colonoscopy (12/23/20) AV fistula H/O esophagogastroduodenoscopy (12/23/20) History of colonoscopy with polypectomy 2004 Hx of appendectomy History of arthroscopy of left shoulder Hx of bilateral cataract extraction Family History Father Cirrhosis of liver Other Diabetes Social History Smoking and tobacco/nicotine status: former use of tobacco/nicotine Second hand smoke exposure: Yes Alcohol intake: former Substance/Drug Use: never Household members: spouse Marital status: service: Yes branch: [employer] Current occupational status: retired Previous occupational history: [employer] Vitals/I&O/Wt Last Vital Signs Temp 97.8 F 05/05/23 04:00 Pulse 64 05/05/23 09:00 Resp 20 H 05/05/23 09:00 BP 135/55 05/05/23 08:00 Pulse Ox 95 05/05/23 09:00 O2 Del Method Nasal Cannula 05/05/23 09:00 O2 Flow Rate 4 05/05/23 09:00 FiO2 35 05/05/23 06:03 05/04/23 05/05/23 05/05/23 22:59 06:59 14:59 Intake Total 300 / 300 100 / 400 Output Total 650 / 650 475 / 1125 Balance -350 / -350 -375 / -725 Weight last 48 hrs Weight 264 lb 12.8 oz Weight 265 lb 3.2 oz Weight 265 lb Weight 250 lb Physical Exam 2 Narrative: GENERAL: Patient is alert, awake and oriented x3. [] NECK: No jugular vein distension. [] HEENT: No cyanosis. No icterus. No pallor. [] HEART: Regular S1 and S2. No murmur, rub or gallop. [] LUNGS: Clear to auscultate bilaterally. [] CENTRAL NERVOUS SYSTEM: Grossly nonfocal. [] EXTREMITIES: Lower extremities with 1+ edema bilaterally. Data 05/07/23 03:23 05/07/23 03:23 Micro: Microbiology 05/04/23 22:15 Legionella Urinary Antigen - Final Unknown Source A&P Assessment and plan (1) Non-ST elevation [place] (NSTEMI): (2) CHF (congestive heart failure): Qualifiers: Heart failure chronicity: acute Heart failure type: unspecified Qualified Code(s): I50.9 - Heart failure, unspecified (3) Type 2 diabetes mellitus with diabetic polyneuropathy, with long-term current use of insulin: (4) CKD (chronic kidney disease), stage IV: Plan Patient's troponins have significantly trended up. He does have significant arterial disease. Nephrology on board. If he starts hemodialysis, can consider invasive coronary angiogram. Otherwise plan will be to perform the stress test once stable. He is not having active chest pain. ECHO ordered Continue medical therapy for NSTEMI with anticoagulation. Thank you for involving us with care of this patient. We will continue to follow. Please call with questions Consult Attestations 2 Medical Necessity Statement: Care expected to cross 2 midnights. Coding Level of Care Code Acute Code for [facility] Diagnoses Non-ST elevation [place] (NSTEMI) I21.4 CHF (congestive heart failure) I50.9 Heart failure chronicity: acute Heart failure type: unspecified Type 2 diabetes mellitus with diabetic polyneuropathy, with long-term current use of insulin E11.42; Z79.4 CKD (chronic kidney disease), stage IV N18.4
[2023-05-05 10:14] LABS: Partial Thromboplastin Time > 250.0 SECONDS (23.9-36.7)
[2023-05-05] MEDS: metOLazone 5 MG Tablet PO (10:24)
[2023-05-05] MEDS: insulin glargine 100 units/1 mL 20 UNIT SUBCUT (10:24)
--- NOTE | 2023-05-05 10:53 | PC.NURSE ---
pt developed hematuria at change of shift (approx 0715).no clots noted.holley catheter securement device was replaced to ensure no tugging on penis.dr bautista here on rounds at approx 0930.he ordered bladder to be scanned and to irrigate holley as necessary if clots develop. 0 urine noted on bladder scanner..and no clots noted.
[2023-05-05] MEDS: FUROsemide 10 mg/mL SDV 10mL 100 MG IVP (11:04)
[2023-05-05 11:16] LABS: Glucose Point of Care 180 mg/dL (70-110)
[2023-05-05] MEDS: insulin lispro 100 unit/1 mL SUBCUT ×2 (11:20→21:16)
[2023-05-05] MEDS: sucralfate 1 gm Tablet PO ×3 (11:20→21:12)
--- NOTE | 2023-05-05 12:13 | P.PN_ITS ---
Subjective 2 Subjective: No acute events overnight. Today morning patient seen sitting up in chair. Family at bedside. States he is feeling slightly better. Currently is on 2 L of oxygen supplementation saturating more than 90%. States he feels as if the swelling in the legs is reducing. Overall 1 L of urine output since admission. Has remained hemodynamically stable and afebrile. Vitals/I&O/Wt Last Vital Signs Temp 97.8 F 05/05/23 04:00 Pulse 64 05/05/23 09:00 Resp 20 H 05/05/23 09:00 BP 135/55 05/05/23 08:00 Pulse Ox 95 05/05/23 09:00 O2 Del Method Nasal Cannula 05/05/23 09:00 O2 Flow Rate 4 05/05/23 09:00 FiO2 35 05/05/23 06:03 05/04/23 05/05/23 05/05/23 22:59 06:59 14:59 Intake Total 300 / 300 100 / 400 Output Total 650 / 650 475 / 1125 Balance -350 / -350 -375 / -725 Weight last 48 hrs Weight 120.111 kg Weight 120.293 kg Weight 120.202 kg Weight 113.398 kg Physical Exam 2 Narrative: General: No acute distress, AO x3, NC oxygen supplementation, obese HEENT: PERRLA, pupils bilaterally equal and reactive Chest: Bilateral bronchial breath sounds with occasional rhonchi, fine crackles to the mid lungs bilaterally CVS: S1-S2 regular, no murmurs, no tachycardia, no gallops, no rubs Abdomen: Soft, nontender, no organomegaly, bowel sounds present, morbidly obese Neuro: No focal deficits, no facial deformity, AO x3, power 5/5 in all limbs Extremity: Bilateral pedal edema 1+ Data 05/05/23 02:58 05/05/23 02:58 Micro: Microbiology 05/04/23 22:15 Legionella Urinary Antigen - Final Unknown Source A&P Assessment and plan (1) Acute respiratory failure with hypoxia: Most likely in setting of CHF exacerbation. Patient also does have history of COPD and obstructive sleep apnea. BiPAP as needed. For now start patient on high flow nasal cannula given increased work of breathing. Oxygen supplementation keeping saturation over 90%. Fluid restriction up to 1500 cc. Luu catheterization. Strict input output charting, daily weights. Urine output of around 1 L since admission. Will repeat 100 mg of IV Lasix along with metolazone 5 mg oral daily. D-dimer 2.56. Appreciate echocardiogram and CT chest results. Echocardiogram shows mildly low EF of 45 to 50%. Ipratropium, Xopenex every 6 hours, Pulmicort twice daily. Hold off on steroids for now. CT chest concerning for consolidation in the left upper lobe lingular and lower lobe with concern for pneumonia. Follow-up blood culture, sputum culture pending, MRSA swab. Urine Legionella and bacterial antigen pending. For now continue with treatment for community-acquired pneumonia with IV ceftriaxone and azithromycin. D-dimer mildly elevated. Patient has CKD with high chances of requiring hemodialysis. Patient already on heparin drip. So for now we will hold off on CTA. If needed can plan for VQ scan. Check lower limb Dopplers. (2) CHF (congestive heart failure): Qualifiers: Heart failure chronicity: acute Heart failure type: unspecified Qualified Code(s): I50.9 - Heart failure, unspecified (3) Non-ST elevation [place] (NSTEMI): Troponin cycled trending up with a delta of 206 hours. Echocardiogram results shows a new low EF. Patient denies any active chest pain. Continue with aspirin and statin. Continue with heparin drip. Will consult cardiology for further recommendations. Patient is agreeable for cardiac angiogram if needed. He is aware that angiogram could cause him to have contrast-induced nephropathy leading to possible dialysis. (4) COPD (chronic obstructive pulmonary disease): (5) Obstructive sleep apnea: Continue BiPAP nightly. (6) CKD (chronic kidney disease), stage IV: Past history. Baseline creatinine 3-3.8. Patient does have AV fistula in place but never on dialysis. Medical reconciliation done for nephrotoxic drugs. Appreciate urine lites, urine creatinine. Patient needs aggressive IV diuresis for now. Patient is agreeable for short- term dialysis if needed. Will try if IV diuresis for now if does not work we will consult nephrology for possible dialysis. Luu catheterization Renal ultrasound appreciated. (7) Essential (primary) hypertension: With history of LVH on echocardiogram. Goal blood pressure less than 140/90 mmHg. Continue with home dose of hydralazine, metoprolol. Hold off on amlodipine and losartan for now. Will restart as per goal blood pressures. Will uptitrate as for goal blood pressures. (8) Type 2 diabetes mellitus with diabetic polyneuropathy, with long-term current use of insulin: Check A1c. Insulin sliding scale at moderate dose protocol. Continue with home dose of glargine. (9) Iron deficiency anemia: Hemoglobin down to 8.7. Patient denies any melena. Gives history of long-term iron deficiency anemia. Most likely in setting of CKD. Appreciate recent iron panel. Appreciate B12 and folate levels results. For now start on Protonix IV twice daily and Carafate ACHS. Monitor hemoglobin daily for now. (10) AV fistula: (11) Dyspnea on exertion: (12) Acquired left ventricular hypertrophy: Plan CODE STATUS: Discussed in detail with the patient. will be the DPOA. Patient does not want any kind of resuscitation measures or life support. DNR/DNI. Heparin 5000 every 12 hourly for DVT prophylaxis Protonix for PUD prophylaxis Cardiac carb consistent diet. Attestations 2 Medical Necessity Statement*: Requires further hospitalization for management of acute hypoxic respiratory failure in setting of congestive heart failure, left lung pneumonia, non-ST elevation [place] in a patient with history of CKD stage IV Diagnoses Acute respiratory failure with hypoxia J96.01 CHF (congestive heart failure) I50.9 Heart failure chronicity: acute Heart failure type: unspecified Non-ST elevation [place] (NSTEMI) I21.4 COPD (chronic obstructive pulmonary disease) J44.9 Obstructive sleep apnea G47.33 CKD (chronic kidney disease), stage IV N18.4 Essential (primary) hypertension I10 Type 2 diabetes mellitus with diabetic polyneuropathy, with long-term current use of insulin E11.42; Z79.4 Iron deficiency anemia D50.9 AV fistula I77.0 Dyspnea on exertion R06.00 Acquired left ventricular hypertrophy I51.7
--- NOTE | 2023-05-05 13:19 | PC.NURSE ---
holley irrigation: pt was given lasix and zaroxylyn at approx 0945 this a.m..at this time has 250 cc pink tinged urine in collection bag.a few small blood clots noted in tubing.catheter irrigated with 50 cc sterile water...with return of 50 cc very light pink urine and 2 small blood clots.
[2023-05-05 16:42] LABS: Glucose Point of Care 140 mg/dL (70-110)
[2023-05-05] MEDS: hyDRALAzine 25 mg Tablet 50 MG PO (16:51)
[2023-05-05] MEDS: azithromycin 500 MG in sodium chloride 0.9% 250 ML 250 MG IV (19:40)
[2023-05-05 20:13] LABS: Blood Urea Nitrogen 68 mg/dL (8-23); Calcium 8.3 mg/dL (8.5-10.5); Carbon Dioxide 17 mmol/L (22-29); Chloride 108 mmol/L (98-107); Glucose 164 mg/dL (65-115); Osmolality Calculated 307 mOsm/kg (285-295); Sodium 137 mmol/L (136-145)
[2023-05-05 20:16] LABS: Anion Gap 16.5 (5-19); Potassium 4.5 mmol/L (3.5-5.1)
[2023-05-05] MEDS: FUROsemide 10 mg/mL SDV 10mL 60 MG IVP (20:28)
[2023-05-05 20:29] LABS: Glucose Point of Care 159 mg/dL (70-110)
[2023-05-05] MEDS: atorvastatin 40 mg Tablet PO (20:35)
[2023-05-05] MEDS: FUROsemide 100 MG in sodium chloride 0.9% 40 ML IV (20:38)
[2023-05-05] MEDS: budesonide 0.5 mg/2 mL Neb INHALATION (21:02)
[2023-05-05] MEDS: cefTRIAXone 1,000 MG in sodium chloride 0.9% (plus) 50 ML 100 MG IV (21:13)
[2023-05-05 22:44] LABS: Partial Thromboplastin Time 236.7 SECONDS (23.9-36.7)
[2023-05-06] VITALS (18 sets, daily range): BP systolic 122–160; BP diastolic 54–74; PULSE 64–84; RESP 16–22; TEMP 36.6–37.3; O2SAT 94–97
[2023-05-06] MEDS: ipratropium-albuterol 3 mL Neb INHALATION ×3 (01:44→21:40)
[2023-05-06 03:03] LABS: Basophils % 0.3 %; Eosinophils # 0.2 10^3/uL (0.0-0.8); Eosinophils % 2.2 %; Hematocrit 27.8 % (37-53); Lymphocytes # 1.1 10^3/uL (0.8-4.8); Lymphocytes % 11.2 %; Mean Corpuscular HGB Conc 30.2 g/dL (30-55); Mean Corpuscular Hemoglobin 30.7 pg (27-33); Mean Corpuscular Volume 101.5 fl (82-101); Mean Platelet Volume 9.8 fL (7.4-10.4); Monocytes # 1.3 10^3/uL (0.2-0.9); Neutrophils # 7.39 10^3/uL (1.8-7.7); Neutrophils % 72.8 %; Nucleated Red Blood Cells % 0 %; Platelet Count 141 10^3/cmm (157-399); Red Blood Count 2.74 10^6/uL (3.85-5.65); Red Cell Distribution Width 14.6 % (12.1-15.1); White Blood Count 10.15 10^3/uL (3.29-11.43)
[2023-05-06 03:16] LABS: Partial Thromboplastin Time 41.8 SECONDS (23.9-36.7)
[2023-05-06 03:30] LABS: Alanine Aminotransferase 18 U/L (0-41); Albumin Level 3.2 g/dL (3.5-5.2); Alkaline Phosphatase 41 U/L (40-130); Aspartate Amino Transferase 35 U/L (0-40); Blood Urea Nitrogen 72 mg/dL (8-23); Calcium 8.1 mg/dL (8.5-10.5); Carbon Dioxide 18 mmol/L (22-29); Chloride 106 mmol/L (98-107); Globulin 1.8 g/dL (1.3-4.6); Glucose 109 mg/dL (65-115); Osmolality Calculated 308 mOsm/kg (285-295); Sodium 138 mmol/L (136-145); Total Bilirubin 0.7 mg/dL (0.15-1.2)
[2023-05-06 03:32] LABS: Anion Gap 18.3 (5-19); Potassium 4.3 mmol/L (3.5-5.1)
[2023-05-06 03:33] LABS: Troponin T (5th) Once 526 ng/L (0-15)
[2023-05-06] MEDS: heparin drip 25,000 UNIT/500 ML PREMIX 34 UNIT IV (05:37)
[2023-05-06] MEDS: FUROsemide 100 MG in sodium chloride 0.9% 40 ML IV ×2 (05:45→16:59)
[2023-05-06 07:42] LABS: Glucose Point of Care 121 mg/dL (70-110)
[2023-05-06] MEDS: budesonide 0.5 mg/2 mL Neb INHALATION ×2 (08:33→21:40)
[2023-05-06 08:56] LABS: Hepatitis B Surface AB 13.7 (11.5-1000); Hepatitis B Surface Antigen Non-Reactive (Nonreactive)
[2023-05-06] MEDS: pantoprazole 40 mg SDV IVP ×2 (09:11→21:18)
[2023-05-06] MEDS: ferrous sulfate EC 325 mg Tablet PO (09:12)
[2023-05-06] MEDS: allopurinol 100 mg Tablet 50 MG PO (09:12)
[2023-05-06] MEDS: metOLazone 5 MG Tablet PO (09:12)
[2023-05-06] MEDS: sucralfate 1 gm Tablet PO ×3 (09:13→21:17)
[2023-05-06] MEDS: tamsulosin 0.4 mg Capsule PO (09:13)
[2023-05-06] MEDS: hyDRALAzine 50 mg Tablet PO ×3 (09:13→21:18)
[2023-05-06] MEDS: aspirin 81 mg EC Tablet PO (09:13)
[2023-05-06] MEDS: metoprolol succinate ER (24 HR) 50 mg Tablet PO (09:13)
[2023-05-06] MEDS: insulin glargine 100 units/1 mL 20 UNIT SUBCUT (09:29)
[2023-05-06 10:38] LABS: Partial Thromboplastin Time 212.9 SECONDS (23.9-36.7)
[2023-05-06 12:11] LABS: Glucose Point of Care 155 mg/dL (70-110)
--- NOTE | 2023-05-06 13:11 | P.PN_ITS ---
Subjective 2 Subjective: No acute events overnight. Patient has remained hemodynamically stable and afebrile. Seen with family at bedside. Yesterday because of low urine output after Lasix challenge patient was started on Lasix drip overnight. Overnight patient has had around 1100 cc of urine output. Patient states he still having a cough which is bothering him and seems to be more than yesterday. States he is feeling more tired than yesterday. Denies any chest pain. Vitals/I&O/Wt Last Vital Signs Temp 98.1 F 05/06/23 11:54 Pulse 67 05/06/23 11:54 Resp 18 05/06/23 11:54 BP 141/60 05/06/23 11:54 Pulse Ox 94 05/06/23 11:54 O2 Del Method Nasal Cannula 05/06/23 11:54 O2 Flow Rate 3 05/06/23 08:45 FiO2 35 05/06/23 01:44 05/05/23 05/06/23 05/06/23 22:59 06:59 14:59 Intake Total 781.4 / 1245.8 79.783 / 1325.583 417.367 / 417.367 Output Total 400 / 750 1600 / 2350 Balance 381.4 / 495.8 -1520.217 / -1024.417 417.367 / 417.367 Weight last 48 hrs Weight 119.204 kg Weight 120.111 kg Weight 120.293 kg Weight 120.202 kg Weight 113.398 kg Physical Exam 2 Narrative: General: No acute distress, AO x3, NC oxygen supplementation, obese HEENT: PERRLA, pupils bilaterally equal and reactive Chest: Bilateral bronchial breath sounds with occasional rhonchi, fine crackles to the mid lungs bilaterally CVS: S1-S2 regular, no murmurs, no tachycardia, no gallops, no rubs Abdomen: Soft, nontender, no organomegaly, bowel sounds present, morbidly obese Neuro: No focal deficits, no facial deformity, AO x3, power 5/5 in all limbs Extremity: Bilateral pedal edema 1+ Data 05/06/23 02:53 05/06/23 02:53 Micro: Microbiology 05/05/23 15:40 Gram Stain - Final Sputum - Expectorated Sputum Sputum Culture - Preliminary 05/04/23 22:15 Bacterial Antigens - Final Urine Kidney A&P Assessment and plan (1) Acute respiratory failure with hypoxia: Most likely in setting of CHF exacerbation. Patient also does have history of COPD and obstructive sleep apnea. BiPAP as needed. For now start patient on high flow nasal cannula given increased work of breathing. Oxygen supplementation keeping saturation over 90%. Fluid restriction up to 1500 cc. Luu catheterization. Strict input output charting, daily weights. Urine output of around 1 L since admission. Will repeat 100 mg of IV Lasix along with metolazone 5 mg oral daily. D-dimer 2.56. Appreciate echocardiogram and CT chest results. Echocardiogram shows mildly low EF of 45 to 50%. Ipratropium, Xopenex every 6 hours, Pulmicort twice daily. Hold off on steroids for now. CT chest concerning for consolidation in the left upper lobe lingular and lower lobe with concern for pneumonia. Follow-up blood culture, sputum culture pending, MRSA swab. Urine Legionella and bacterial antigen pending. For now continue with treatment for community-acquired pneumonia with IV ceftriaxone and azithromycin. D-dimer mildly elevated. Patient has CKD with high chances of requiring hemodialysis. Patient already on heparin drip. So for now we will hold off on CTA. If needed can plan for VQ scan. Check lower limb Dopplers. (2) CHF (congestive heart failure): Qualifiers: Heart failure chronicity: acute Heart failure type: unspecified Qualified Code(s): I50.9 - Heart failure, unspecified (3) Non-ST elevation [place] (NSTEMI): Troponin cycled trending up with a delta of 206 hours. Echocardiogram results shows a new low EF. Patient denies any active chest pain. Continue with aspirin and statin. Continue with heparin drip. Will consult cardiology for further recommendations. Patient is agreeable for cardiac angiogram if needed. He is aware that angiogram could cause him to have contrast-induced nephropathy leading to possible dialysis. (4) COPD (chronic obstructive pulmonary disease): (5) Obstructive sleep apnea: Continue BiPAP nightly. (6) CKD (chronic kidney disease), stage IV: Past history. Baseline creatinine 3-3.8. Patient does have AV fistula in place but never on dialysis. Medical reconciliation done for nephrotoxic drugs. Appreciate urine lites, urine creatinine. Patient needs aggressive IV diuresis for now. Patient is agreeable for short- term dialysis if needed. Will try if IV diuresis for now if does not work we will consult nephrology for possible dialysis. Luu catheterization Renal ultrasound appreciated. (7) Essential (primary) hypertension: With history of LVH on echocardiogram. Goal blood pressure less than 140/90 mmHg. Continue with home dose of hydralazine, metoprolol. Hold off on amlodipine and losartan for now. Will restart as per goal blood pressures. Will uptitrate as for goal blood pressures. (8) Type 2 diabetes mellitus with diabetic polyneuropathy, with long-term current use of insulin: Check A1c. Insulin sliding scale at moderate dose protocol. Continue with home dose of glargine. (9) Iron deficiency anemia: Hemoglobin down to 8.7. Patient denies any melena. Gives history of long-term iron deficiency anemia. Most likely in setting of CKD. Appreciate recent iron panel. Appreciate B12 and folate levels results. For now start on Protonix IV twice daily and Carafate ACHS. Monitor hemoglobin daily for now. (10) AV fistula: (11) Dyspnea on exertion: (12) Acquired left ventricular hypertrophy: Plan CODE STATUS: Discussed in detail with the patient. will be the DPOA. Patient does not want any kind of resuscitation measures or life support. DNR/DNI. Heparin 5000 every 12 hourly for DVT prophylaxis Protonix for PUD prophylaxis Renal diabetic diet. Plan for the day: Even after aggressive diuresis patient did not have good urine output hence was placed on Lasix drip overnight. Urine output seems to be improving after the Lasix drip. Creatinine slightly worsened today going up to 4. No Ewa abnormalities. Patient does have mild metabolic acidosis. Nephrology consulted. Plan for possible dialysis today given limited urine response to the Lasix drip also. Patient is agreeable for dialysis. After dialysis we will switch patient from Lasix drip to IV Lasix 80 mg twice daily and will hold off on metolazone. As patient is on Lasix drip will monitor BMP every 12 hourly. For [id number] AK. Troponin checked earlier today morning going up to 500. Patient denies any active chest pain. Continue with heparin drip. Having issues with PTT. Have requested to stop the heparin drip for next 3 hours, recheck PTT and start the heparin drip at half the dose and uptitrate keeping PTT goals. Discussed in detail with patient's RN. Hemoglobin has remained stable. Goal blood pressure less than 140/90 mmHg. Continue with metoprolol and hydralazine for now. Holding off on every other antihypertensives for now. Discussed further with patient's family and patient at bedside. We discussed that there is a risk of going up on dialysis permanently with cardiac angiogram because of contrast-induced nephropathy but there is also a risk of worsening of renal functions with worsening EF and recurrent AK given significant troponin leak currently. Family was concerned about further AK and possible cardiac arrest. We discussed that chances always are higher for adverse events specially with ongoing ACS. Family verbalized understanding. They are open to cardiac angiogram if needed even if it means that he would end up on dialysis. For pneumonia follow-up MRSA swab and sputum culture results. For now continue with antibiotics for community-acquired pneumonia. If MRSA swab is positive will add vancomycin. Leukocytosis is resolving. Attestations 2 Medical Necessity Statement*: Requires further hospitalization for management of hypoxic respiratory failure in setting of congestive heart failure, non-ST elevation AK, pneumonia in a patient with baseline end-stage renal disease stage IV requiring new hemodialysis Diagnoses Acute respiratory failure with hypoxia J96.01 CHF (congestive heart failure) I50.9 Heart failure chronicity: acute Heart failure type: unspecified Non-ST elevation [place] (NSTEMI) I21.4 COPD (chronic obstructive pulmonary disease) J44.9 Obstructive sleep apnea G47.33 CKD (chronic kidney disease), stage IV N18.4 Essential (primary) hypertension I10 Type 2 diabetes mellitus with diabetic polyneuropathy, with long-term current use of insulin E11.42; Z79.4 Iron deficiency anemia D50.9 AV fistula I77.0 Dyspnea on exertion R06.00 Acquired left ventricular hypertrophy I51.7
--- NOTE | 2023-05-06 13:46 | PC.HD ---
E-consent signed by patient. Fistula is two years old, but has not been accessed yet. No issues accessing new LAVF; machine pressures within acceptable ranges.
[2023-05-06] MEDS: epoetin alfa 1000 Unit/0.05 mL (ESRD) 20000 UNIT IVP (14:31)
[2023-05-06 15:07] LABS: Partial Thromboplastin Time 71.5 SECONDS (23.9-36.7)
--- NOTE | 2023-05-06 15:13 | PC.HD ---
Per supervisor [employer]'s orders, patient received heparin 1000 units loading dose via venous needle at 1241, and 500 units maintenance dose via HD circuit at 1330. Patient tolerated treatment with no issues or complaints.
--- NOTE | 2023-05-06 16:01 | P.PN_ITS ---
Subjective 2 Subjective: Patient had hemodialysis session today. Feeling better. Vitals/I&O/Wt Last Vital Signs Temp 98.6 F 05/06/23 15:12 Pulse 79 05/06/23 15:12 Resp 16 05/06/23 15:12 BP 160/71 05/06/23 15:12 Pulse Ox 94 05/06/23 11:54 O2 Del Method Nasal Cannula 05/06/23 11:54 O2 Flow Rate 3 05/06/23 08:45 FiO2 35 05/06/23 01:44 05/06/23 05/06/23 05/06/23 06:59 14:59 22:59 Intake Total 79.783 / 1325.583 417.367 / 417.367 300 / 717.367 Output Total 1600 / 2350 2800 / 2800 Balance -1520.217 / -1024.417 417.367 / 417.367 -2500 / -2082.633 Weight last 48 hrs Weight 260 lb 2.327 oz Weight 262 lb 12.8 oz Weight 264 lb 12.8 oz Weight 265 lb 3.2 oz Weight 265 lb Weight 250 lb Physical Exam 2 Narrative: GENERAL: Patient is alert, awake and oriented x3. [] NECK: No jugular vein distension. [] HEENT: No cyanosis. No icterus. No pallor. [] HEART: Regular S1 and S2. No murmur, rub or gallop. [] LUNGS: Clear to auscultate bilaterally. [] CENTRAL NERVOUS SYSTEM: Grossly nonfocal. [] EXTREMITIES: Lower extremities with 1+ edema bilaterally. Data 05/07/23 03:23 05/07/23 03:23 Micro: Microbiology 05/05/23 15:40 Gram Stain - Final Sputum - Expectorated Sputum Sputum Culture - Preliminary 05/04/23 22:15 Bacterial Antigens - Final Urine Kidney A&P Assessment and plan (1) Non-ST elevation [place] (NSTEMI): (2) CHF (congestive heart failure): Qualifiers: Heart failure chronicity: acute Heart failure type: unspecified Qualified Code(s): I50.9 - Heart failure, unspecified (3) Type 2 diabetes mellitus with diabetic polyneuropathy, with long-term current use of insulin: (4) CKD (chronic kidney disease), stage IV: Plan Patient had hemodialysis session today. Feeling better. We will continue with medical therapy for NSTEMI. Based on decision regarding prison dialysis, we will plan on stress test vs coronary angiogram Thank you for involving us with care of this patient. We will continue to follow. Please call with questions Attestations 2 Medical Necessity Statement*: Care expected to cross 2midnights. Coding Level of Care Code Acute Code for [facility] Diagnoses Non-ST elevation [place] (NSTEMI) I21.4 CHF (congestive heart failure) I50.9 Heart failure chronicity: acute Heart failure type: unspecified Type 2 diabetes mellitus with diabetic polyneuropathy, with long-term current use of insulin E11.42; Z79.4 CKD (chronic kidney disease), stage IV N18.4
[2023-05-06 16:43] LABS: Glucose Point of Care 119 mg/dL (70-110)
--- NOTE | 2023-05-06 17:19 | PC.NURSE ---
pt tolerated dialysis well.
[2023-05-06 20:24] LABS: Partial Thromboplastin Time 43.1 SECONDS (23.9-36.7)
[2023-05-06 20:29] LABS: Blood Urea Nitrogen 52 mg/dL (8-23); Calcium 8.3 mg/dL (8.5-10.5); Carbon Dioxide 19 mmol/L (22-29); Chloride 99 mmol/L (98-107); Glucose 202 mg/dL (65-115); Osmolality Calculated 294 mOsm/kg (285-295); Sodium 132 mmol/L (136-145)
[2023-05-06 20:36] LABS: Anion Gap 18.5 (5-19); Potassium 4.5 mmol/L (3.5-5.1)
[2023-05-06] MEDS: cefTRIAXone 1,000 MG in sodium chloride 0.9% (plus) 50 ML 100 MG IV (21:13)
[2023-05-06] MEDS: atorvastatin 40 mg Tablet PO (21:18)
[2023-05-06 21:41] LABS: Glucose Point of Care 189 mg/dL (70-110)
[2023-05-06] MEDS: insulin lispro 100 unit/1 mL SUBCUT (21:52)
--- NOTE | 2023-05-06 22:11 | P.CONIM_ITS ---
Providers/Reason For Consult 2 Consulting Physician/Specialty*: [facility]/NEPHROLOGY Reason for Consult*: CKD5--> ESRD Attending Physician: Josue Oneil MD Primary Care Provider: Carolyn Tilley DO History of Present Illness History of Present Illness Geovanny Lujan is a 82 year old male With past medical history of hypertension, dyslipidemia, diabetes type 2 coronary artery disease COPD, CKD stage V, has AV fistula placed few years ago, presented to the emergency department due to worsening shortness of breath. Vital signs significant for elevated blood pressures up to 180s lab data significant for hemoglobin of 10 CO2 of 15 and creatinine of 3 on presentation but has worsened to 4.0 today. Review of Systems 2 Narrative: negative Medications/Allergies Home Medications Medication Instructions Recorded Confirmed Last Taken Type aspirin 81 mg tablet,delayed 81 mg PO DAILY 06/17/19 05/04/23 05/04/23 08:00 History release (Adult Low Dose Aspirin) cholecalciferol (vitamin D3) 50 2,000 unit PO DAILY 06/17/19 05/04/23 05/04/23 08:00 History mcg (2,000 unit) capsule diabetic shoes #1 ea 12/16/19 05/04/23 Unknown Rx acetaminophen 500 mg tablet 500 mg PO TID PRN Pain 03/24/20 05/04/23 1 Day Ago History ~12/22/20 pen needle, diabetic 32 gauge x #270 ea 08/02/20 05/04/23 Unknown Rx 5/32 (BD [place] 2nd Gen Pen Needle) blood-glucose meter,continuous #1 ea 12/13/21 05/04/23 Unknown Rx (Dexcom G6 [facility] Social Worker) diphenhydramine HCl 50 mg tablet 100 mg PO QPM PRN Sleep 02/24/22 05/04/23 Unknown History omega 1-nge-iae-fish oil 300 1 cap PO DAILY 02/24/22 05/04/23 05/04/23 08:00 History mg-1,000 mg capsule (Fish Oil) diabetic shoes #1 ea 03/09/22 05/04/23 Unknown Rx miscellaneous medical supply 1 ea miscellaneous DAILY #1 ea 06/03/22 05/04/23 Unknown Rx CPAP, mask, and tubing #1 ea 06/13/22 05/04/23 Unknown Rx blood-glucose sensor (Dexcom G6 #9 ea 10/23/22 05/04/23 Unknown Rx Sensor device) hydroxychloroquine 200 mg tablet 200 mg PO BID #180 tabs 02/07/23 05/04/23 05/04/23 08:00 Rx blood-glucose transmitter (Dexcom #3 ea 02/19/23 05/04/23 Unknown Rx G6 Transmitter device) ferrous sulfate 325 mg (65 mg 325 mg PO DAILY 03/16/23 05/04/23 05/04/23 08:00 History iron) tablet allopurinol 100 mg tablet 50 mg PO DAILY 05/04/23 05/04/23 05/04/23 08:00 History amlodipine 10 mg tablet 10 mg PO DAILY 05/04/23 05/04/23 05/04/23 23:32 History atorvastatin 40 mg tablet 40 mg PO BEDTIME 05/04/23 05/04/23 05/04/23 23:33 History furosemide 40 mg tablet 40 mg PO BID 05/04/23 05/04/23 05/04/23 08:00 History hydralazine 50 mg tablet 50 mg PO TID 05/04/23 05/04/23 05/04/23 08:00 History insulin aspart U-100 100 unit/mL 5 unit SUBCUT TIDWM 05/04/23 05/04/23 Unknown History (3 mL) subcutaneous pen insulin glulisine U-100 100 50 unit SUBCUT QAM 05/04/23 05/04/23 Unknown History unit/mL subcutaneous pen losartan 50 mg tablet 50 mg PO BID 05/04/23 05/04/23 05/04/23 08:00 History metoprolol succinate 50 mg 50 mg PO DAILY 05/04/23 05/04/23 05/04/23 23:42 History tablet,extended release 24 hr tamsulosin 0.4 mg capsule 0.4 mg PO DAILY 05/04/23 05/04/23 05/04/23 23:41 History Allergies Allergy/AdvReac Type Severity Reaction Status Date / Time No Known Allergies Allergy Verified 05/04/23 16:48 Current Medications Generic Name Dose Route Start Last Admin Trade Name Freq PRN Reason Stop Dose Admin Albuterol/Ipratropium 3 ml 05/05/23 02:00 05/06/23 21:40 Ipratropium-Albuterol 3 Ml Neb INHALATION 3 ml Q6H.RESP ROSELIA Administration Allopurinol 50 mg 05/05/23 09:00 05/06/23 09:12 Allopurinol 100 Mg Tablet PO 50 mg DAILY ROSELIA Administration Amlodipine Besylate 10 mg 05/05/23 09:00 05/05/23 08:39 Amlodipine 10 Mg Tablet PO 10 mg DAILY ROSELIA Administration Aspirin 81 mg 05/05/23 09:00 05/06/23 09:13 Aspirin 81 Mg Ec Tablet PO 81 mg DAILY ROSELIA Administration Atorvastatin Calcium 40 mg 05/05/23 21:00 05/06/23 21:18 Atorvastatin 40 Mg Tablet PO 40 mg BEDTIME ROSELIA Administration Budesonide 0.5 mg 05/05/23 08:00 05/06/23 21:40 Budesonide 0.5 Mg/2 Ml Neb INHALATION 0.5 mg BID.RESPIRATORY ROSELIA Administration Ferrous Sulfate 325 mg 05/05/23 09:00 05/06/23 09:12 Ferrous Sulfate Ec 325 Mg Tablet PO 325 mg DAILY ROSELIA Administration Heparin Sodium (Porcine) 0 unit 05/05/23 01:54 05/05/23 03:26 Heparin 5,000 Unit/Ml Inj 1 Ml IV 6,000 unit PRN PRN Administration Heparin weight-base protocol Protocol Hydralazine HCl 50 mg 05/05/23 09:00 05/06/23 21:18 Hydralazine 50 Mg Tablet PO 50 mg TID ROSELIA Administration Ceftriaxone Sodium 1,000 mg/ 50 mls @ 100 mls/hr 05/05/23 20:00 05/06/23 21:43 Sodium Chloride IV Infused Q24H [facility] Infusion Protocol Heparin Sodium/Sodium Chloride 25,000 unit in 500 mls @ 0 mls/hr 05/05/23 02:00 05/06/23 21:24 Heparin Drip IV 9.15 unit/kg/hr .Q0M [facility] 22 mls/hr Titration Protocol Per Protocol Insulin Glargine 20 unit 05/05/23 10:15 05/06/23 09:29 Insulin Glargine 100 Units/1 Ml SUBCUT 20 unit 0800 ROSELIA Administration Insulin Human Lispro 0 unit 05/04/23 22:09 05/06/23 21:52 Insulin Lispro 100 Unit/1 Ml SUBCUT 6 unit WM&BEDTIME ROSELIA Administration Protocol Metolazone 5 mg 05/05/23 10:10 05/06/23 09:12 Metolazone 5 Mg Tablet PO 5 mg DAILY ROSELIA Administration Metoprolol Succinate 50 mg 05/05/23 09:00 05/06/23 09:13 Metoprolol Succinate Er (24 Hr) 50 Mg Tablet PO 50 mg DAILY ROSELIA Administration Pantoprazole Sodium 40 mg 05/05/23 08:15 05/06/23 21:18 Pantoprazole 40 Mg Sdv IVP 40 mg Q12H ROSELIA Administration Sucralfate 1 gm 05/05/23 11:00 05/06/23 21:17 Sucralfate 1 Gm Tablet PO 1 gm AC&BEDTIME ROSELIA Administration Tamsulosin HCl 0.4 mg 05/05/23 09:00 05/06/23 09:13 Tamsulosin 0.4 Mg Capsule PO 0.4 mg DAILY ROSELIA Administration PFSH Acute 2 PFSH: Medical History (Updated 05/06/23 @ 22:20 by Luiza Munoz MD) 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 Long-term insulin use Hypoglycemia due to insulin History of stroke CKD stage 4 due to type 2 diabetes mellitus 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 Duodenal ulcer CKD (chronic kidney disease), stage IV COPD (chronic obstructive pulmonary disease) Carotid artery disease without cerebral infarction Acquired left ventricular hypertrophy BPH (benign prostatic hyperplasia) Type 2 diabetes mellitus with diabetic polyneuropathy, with long-term current use of insulin Essential (primary) hypertension Obstructive sleep apnea Mixed hyperlipidemia Surgical History (Updated 05/04/23 @ 20:35 by Josue Oneil MD) Status post colonoscopy (12/23/20) AV fistula H/O esophagogastroduodenoscopy (12/23/20) History of colonoscopy with polypectomy 2004 Hx of appendectomy History of arthroscopy of left shoulder Hx of bilateral cataract extraction Family History Father Cirrhosis of liver Other Diabetes Social History Smoking and tobacco/nicotine status: former use of tobacco/nicotine Second hand smoke exposure: Yes Alcohol intake: former Substance/Drug Use: never Household members: spouse Marital status: service: Yes branch: [employer] Current occupational status: retired 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 Vitals/I&O/Wt Last Vital Signs Temp 99.1 F 05/06/23 20:00 Pulse 82 05/06/23 21:45 Resp 16 05/06/23 21:35 BP 146/74 05/06/23 20:00 Pulse Ox 96 05/06/23 21:45 O2 Del Method Nasal Cannula 05/06/23 21:35 O2 Flow Rate 3 05/06/23 21:35 FiO2 35 05/06/23 21:45 05/06/23 05/06/23 05/06/23 06:59 14:59 22:59 Intake Total 79.783 / 1325.583 417.367 / 417.367 690 / 1107.367 Output Total 1600 / 2350 2800 / 2800 Balance -1520.217 / -1024.417 417.367 / 417.367 -2110 / -1692.633 Weight last 48 hrs Weight 118 kg Weight 119.204 kg Weight 120.111 kg Weight 120.293 kg Weight 120.202 kg Physical Exam 2 Narrative: awake , alert no distress + edema Data 05/06/23 02:53 05/06/23 19:55 Micro: Microbiology 05/04/23 19:55 Blood Culture - Preliminary Blood 05/04/23 18:01 Blood Culture - Preliminary Blood 05/05/23 15:40 Gram Stain - Final Sputum - Expectorated Sputum Sputum Culture - Preliminary A&P Assessment and plan (1) ESRD (end stage renal disease) on dialysis: Plan 1. CKD 5 now progressed to ESRD: Patient presented with volume overload severe metabolic acidosis and uremic symptoms. Will initiate HD via AV fistula. Ultrafiltration as tolerated 2. Acute respiratory failure with hypoxia likely from volume overload 3. History of hypertension 4. Anemia Consult Attestations 2 Medical Necessity Statement: per medicine Coding Level of Care Code Acute Code for [facility] Diagnoses ESRD (end stage renal disease) on dialysis N18.6; Z99.2
[2023-05-07] VITALS (103 sets, daily range): BP systolic 142–169; BP diastolic 40–82; PULSE 68–97; RESP 15–31; TEMP 36.8–38.2; O2SAT 86–100; BMI 35.7
[2023-05-07] MEDS: acetaminophen 325 mg Tablet 650 MG PO (02:21)
[2023-05-07] MEDS: ipratropium-albuterol 3 mL Neb INHALATION ×3 (03:41→21:39)
[2023-05-07 04:18] LABS: Partial Thromboplastin Time 116.2 SECONDS (23.9-36.7)
[2023-05-07 04:52] LABS: Basophils % 0.3 %; Eosinophils # 0.2 10^3/uL (0.0-0.8); Eosinophils % 2.2 %; Hematocrit 25.6 % (37-53); Lymphocytes # 1.1 10^3/uL (0.8-4.8); Lymphocytes % 10.6 %; Mean Corpuscular HGB Conc 32.8 g/dL (30-55); Mean Corpuscular Hemoglobin 30.3 pg (27-33); Mean Corpuscular Volume 92.4 fl (82-101); Mean Platelet Volume 10.2 fL (7.4-10.4); Monocytes # 1.7 10^3/uL (0.2-0.9); Monocytes % 16.9 %; Neutrophils # 6.98 10^3/uL (1.8-7.7); Neutrophils % 69.2 %; Nucleated Red Blood Cells % 0 %; Platelet Count 170 10^3/cmm (157-399); Red Blood Count 2.77 10^6/uL (3.85-5.65); Red Cell Distribution Width 14.2 % (12.1-15.1); White Blood Count 10.09 10^3/uL (3.29-11.43)
[2023-05-07 05:51] LABS: Alanine Aminotransferase 32 U/L (0-41); Albumin Level 3.1 g/dL (3.5-5.2); Alkaline Phosphatase 49 U/L (40-130); Anion Gap 14.6 (5-19); Aspartate Amino Transferase 51 U/L (0-40); Blood Urea Nitrogen 56 mg/dL (8-23); Calcium 8.5 mg/dL (8.5-10.5); Carbon Dioxide 24 mmol/L (22-29); Chloride 102 mmol/L (98-107); Globulin 2.3 g/dL (1.3-4.6); Glucose 103 mg/dL (65-115); Osmolality Calculated 300 mOsm/kg (285-295); Potassium 3.6 mmol/L (3.5-5.1); Sodium 137 mmol/L (136-145); Total Bilirubin 0.6 mg/dL (0.15-1.2); Total Protein 5.4 g/dL (6.6-8.7)
[2023-05-07 06:17] LABS: C Reactive Protein 117.8 mg/L (0.0-4.9)
[2023-05-07 07:34] LABS: Glucose Point of Care 126 mg/dL (70-110)
[2023-05-07] MEDS: FUROsemide 10 mg/mL SDV 10mL 80 MG IVP ×2 (07:53→17:59)
[2023-05-07] MEDS: pantoprazole 40 mg SDV IVP ×2 (07:57→20:43)
[2023-05-07] MEDS: sucralfate 1 gm Tablet PO ×4 (08:02→20:44)
[2023-05-07] MEDS: budesonide 0.5 mg/2 mL Neb INHALATION ×2 (08:35→21:40)
[2023-05-07] MEDS: insulin glargine 100 units/1 mL 20 UNIT SUBCUT (09:28)
[2023-05-07] MEDS: ferrous sulfate EC 325 mg Tablet PO (09:29)
[2023-05-07] MEDS: metOLazone 5 MG Tablet PO (09:29)
[2023-05-07] MEDS: tamsulosin 0.4 mg Capsule PO (09:29)
[2023-05-07] MEDS: aspirin 81 mg EC Tablet PO (09:29)
[2023-05-07] MEDS: metoprolol succinate ER (24 HR) 50 mg Tablet PO (09:29)
[2023-05-07] MEDS: allopurinol 100 mg Tablet 50 MG PO (09:29)
[2023-05-07] MEDS: hyDRALAzine 50 mg Tablet PO ×3 (09:29→20:44)
[2023-05-07 10:08] LABS: Partial Thromboplastin Time 65.3 SECONDS (23.9-36.7)
--- NOTE | 2023-05-07 10:18 | P.PN_ITS ---
Subjective 2 Subjective: Patient is doing well. No chest pain. Has hematuria noted Vitals/I&O/Wt Last Vital Signs Temp 98.7 F 05/07/23 07:45 Pulse 81 05/07/23 08:00 Resp 16 05/07/23 08:00 BP 148/82 05/07/23 07:45 Pulse Ox 94 05/07/23 08:00 O2 Del Method Nasal Cannula 05/07/23 08:00 O2 Flow Rate 3 05/07/23 08:00 FiO2 35 05/06/23 21:45 05/06/23 05/07/23 05/07/23 22:59 06:59 14:59 Intake Total 690 / 1107.367 154.733 / 1262.100 720 / 720 Output Total 3350 / 3350 450 / 3800 Balance -2660 / -2242.633 -295.267 / -2537.900 720 / 720 Weight last 48 hrs Weight 260 lb 2.327 oz Weight 262 lb 12.8 oz Physical Exam 2 Narrative: GENERAL: Patient is alert, awake and oriented x3. [] NECK: No jugular vein distension. [] HEENT: No cyanosis. No icterus. No pallor. [] HEART: Regular S1 and S2. No murmur, rub or gallop. [] LUNGS: Clear to auscultate bilaterally. [] CENTRAL NERVOUS SYSTEM: Grossly nonfocal. [] EXTREMITIES: Lower extremities with 1+ edema bilaterally. Data 05/08/23 04:23 05/08/23 04:23 Micro: Microbiology 05/05/23 15:40 Gram Stain - Final Sputum - Expectorated Sputum Sputum Culture - Final 05/04/23 19:55 Blood Culture - Preliminary Blood 05/04/23 18:01 Blood Culture - Preliminary Blood A&P Assessment and plan (1) Non-ST elevation [place] (NSTEMI): (2) CHF (congestive heart failure): Qualifiers: Heart failure chronicity: acute Heart failure type: unspecified Qualified Code(s): I50.9 - Heart failure, unspecified (3) Type 2 diabetes mellitus with diabetic polyneuropathy, with long-term current use of insulin: (4) CKD (chronic kidney disease), stage IV: Plan Patient had medical therapy for an NSTEMI. He is still not sure if he wants to go for permanent hemodialysis. After detailed discussion shared decision made to proceed with stress test. If it shows significant ischemia, we will proceed with coronary angiogram. Otherwise we will stay with medical therapy Can stop heparin gtt after 48 hours of anticoagulation Thank you for involving us with care of this patient. We will continue to follow. Please call with questions Attestations 2 Medical Necessity Statement*: Care expected to cross 2 midnights. Coding Level of Care Code Acute Code for [facility] Diagnoses Non-ST elevation [place] (NSTEMI) I21.4 CHF (congestive heart failure) I50.9 Heart failure chronicity: acute Heart failure type: unspecified Type 2 diabetes mellitus with diabetic polyneuropathy, with long-term current use of insulin E11.42; Z79.4 CKD (chronic kidney disease), stage IV N18.4
[2023-05-07] MEDS: heparin drip 25,000 UNIT/500 ML PREMIX 15 UNIT IV (10:23)
[2023-05-07 11:25] LABS: Hematocrit 26.7 % (37-53)
[2023-05-07] MEDS: insulin lispro 100 unit/1 mL SUBCUT ×2 (11:56→22:09)
[2023-05-07 11:58] LABS: Glucose Point of Care 179 mg/dL (70-110)
--- NOTE | 2023-05-07 12:03 | PC.SOCIAL ---
IMM Update Pg. 2 of IMM updated and reviewed with patient who verbalized understanding. Copy provided. Copy placed in chart.
--- NOTE | 2023-05-07 12:28 | P.PN_ITS ---
Subjective 2 Subjective: seen this morning says he is double minded regarding stress test vs angiogram had some gross hematuria overnight, now clear urine in holley seen at bedside 3L NC today, not on O2 at home Vitals/I&O/Wt Last Vital Signs Temp 98.7 F 05/07/23 07:45 Pulse 81 05/07/23 08:00 Resp 16 05/07/23 08:00 BP 148/82 05/07/23 07:45 Pulse Ox 94 05/07/23 08:00 O2 Del Method Nasal Cannula 05/07/23 08:00 O2 Flow Rate 3 05/07/23 08:00 FiO2 35 05/06/23 21:45 05/06/23 05/07/23 05/07/23 22:59 06:59 14:59 Intake Total 690 / 1107.367 154.733 / 1262.100 809.25 / 809.25 Output Total 3350 / 3350 450 / 3800 Balance -2660 / -2242.633 -295.267 / -2537.900 809.25 / 809.25 Weight last 48 hrs Weight 118 kg Weight 119.204 kg Physical Exam 2 Narrative: General: No acute distress, AO x3, 3LNC oxygen supplementation, obese Chest: Bilateral bronchial breath sounds with occasional rhonchi, CTA b/l CVS: S1-S2 regular, Abdomen: Soft, nontender, no organomegaly, bowel sounds present, morbidly obese Neuro: No focal deficits, no facial deformity, AO x3 Extremity: Bilateral pedal edema 1+ Data 05/07/23 11:12 05/07/23 03:23 Micro: Microbiology 05/05/23 15:40 Gram Stain - Final Sputum - Expectorated Sputum Sputum Culture - Final 05/04/23 19:55 Blood Culture - Preliminary Blood 05/04/23 18:01 Blood Culture - Preliminary Blood A&P Assessment and plan (1) Acute respiratory failure with hypoxia: Most likely in setting of CHF exacerbation. Patient also does have history of COPD and obstructive sleep apnea. BiPAP as needed. For now start patient on high flow nasal cannula given increased work of breathing. Oxygen supplementation keeping saturation over 90%. Fluid restriction up to 1500 cc. Holley catheterization. Strict input output charting, daily weights. Urine output of around 1 L since admission. Will repeat 100 mg of IV Lasix along with metolazone 5 mg oral daily. D-dimer 2.56. Appreciate echocardiogram and CT chest results. Echocardiogram shows mildly low EF of 45 to 50%. Ipratropium, Xopenex every 6 hours, Pulmicort twice daily. Hold off on steroids for now. CT chest concerning for consolidation in the left upper lobe lingular and lower lobe with concern for pneumonia. Follow-up blood culture, sputum culture pending, MRSA swab. Urine Legionella and bacterial antigen pending. For now continue with treatment for community-acquired pneumonia with IV ceftriaxone and azithromycin. D-dimer mildly elevated. Patient has CKD with high chances of requiring hemodialysis. Patient already on heparin drip. So for now we will hold off on CTA. If needed can plan for VQ scan. Check lower limb Dopplers.: NO DVT (2) CHF (congestive heart failure): Qualifiers: Heart failure chronicity: acute Heart failure type: unspecified Qualified Code(s): I50.9 - Heart failure, unspecified (3) Non-ST elevation [place] (NSTEMI): Troponin cycled trending up with a delta of 206 hours. Echocardiogram results shows a new low EF. Patient denies any active chest pain. Continue with aspirin and statin. Continue with heparin drip. Will consult cardiology for further recommendations. Patient is agreeable for cardiac angiogram if needed. He is aware that angiogram could cause him to have contrast-induced nephropathy leading to possible dialysis. Discussed with cardiology today. Plan for stress test in AM (4) COPD (chronic obstructive pulmonary disease): (5) Obstructive sleep apnea: Continue BiPAP nightly. (6) CKD (chronic kidney disease), stage IV: Past history. Baseline creatinine 3-3.8. Patient does have AV fistula in place but never on dialysis. Medical reconciliation done for nephrotoxic drugs. Appreciate urine lites, urine creatinine. Continue holley cath Renal ultrasound appreciated. Dialysis to start during hospital stay (7) Essential (primary) hypertension: With history of LVH on echocardiogram. Goal blood pressure less than 140/90 mmHg. Continue with home dose of hydralazine, metoprolol. Hold off on amlodipine and losartan for now. Will restart as per goal blood pressures. Will uptitrate as for goal blood pressures. (8) Type 2 diabetes mellitus with diabetic polyneuropathy, with long-term current use of insulin: Check A1c. Insulin sliding scale at moderate dose protocol. Continue with home dose of glargine. (9) Iron deficiency anemia: Hemoglobin down to 8.7. Patient denies any melena. Gives history of long-term iron deficiency anemia. Most likely in setting of CKD. Appreciate recent iron panel. Appreciate B12 and folate levels results. For now start on Protonix IV twice daily and Carafate ACHS. Monitor hemoglobin daily for now. (10) AV fistula: (11) Dyspnea on exertion: (12) Acquired left ventricular hypertrophy: Plan CODE STATUS: Discussed in detail with the patient. will be the DPOA. Patient does not want any kind of resuscitation measures or life support. DNR/DNI. Heparin 5000 every 12 hourly for DVT prophylaxis Protonix for PUD prophylaxis Renal diabetic diet. Plan for the day: Continue lasix 80 IV BID. Nephrology consulted. Plan for possible dialysis today given limited urine response to the Lasix drip also. Patient is agreeable for dialysis. For [id number] [place]. Troponin checked earlier today morning going up to 500. Patient denies any active chest pain. Continue with heparin drip. Had some gross hematuria overnight and is intermittent.Repeat HB 8.7. Will stop heparin drip has he has completed 48 hours. Goal blood pressure less than 140/90 mmHg. Continue with metoprolol and hydralazine for now. Holding off on every other antihypertensives for now. Will plan for stress test in AM as discussed with cardiology today Continue to monitor BMP q12H since patient is on lasix For pneumonia follow-up MRSA swab and sputum culture results. For now continue with antibiotics for community-acquired pneumonia. If MRSA swab is positive will add vancomycin. Leukocytosis is resolving. Attestations 2 Medical Necessity Statement*: Care expected to cross 2midnights. Diagnoses Acute respiratory failure with hypoxia J96.01 CHF (congestive heart failure) I50.9 Heart failure chronicity: acute Heart failure type: unspecified Non-ST elevation [place] (NSTEMI) I21.4 COPD (chronic obstructive pulmonary disease) J44.9 Obstructive sleep apnea G47.33 CKD (chronic kidney disease), stage IV N18.4 Essential (primary) hypertension I10 Type 2 diabetes mellitus with diabetic polyneuropathy, with long-term current use of insulin E11.42; Z79.4 Iron deficiency anemia D50.9 AV fistula I77.0 Dyspnea on exertion R06.00 Acquired left ventricular hypertrophy I51.7
[2023-05-07] MEDS: heparin 5,000 unit/mL INJ 1 mL 5000 UNIT SUBCUT (14:22)
[2023-05-07 15:29] LABS: Methicillin-Resist S.aureu PCR NOT DETECTED (NOT DETECTED)
[2023-05-07 16:46] LABS: Anion Gap 21.7 (5-19); Blood Urea Nitrogen 60 mg/dL (8-23); Calcium 8.8 mg/dL (8.5-10.5); Carbon Dioxide 21 mmol/L (22-29); Chloride 101 mmol/L (98-107); Glucose 131 mg/dL (65-115); Osmolality Calculated 309 mOsm/kg (285-295); Potassium 3.7 mmol/L (3.5-5.1); Sodium 140 mmol/L (136-145)
[2023-05-07 17:15] LABS: Glucose Point of Care 137 mg/dL (70-110)
--- NOTE | 2023-05-07 20:29 | P.PN_ITS ---
Subjective 2 Subjective: no new complaints Medications: Reviewed: Yes Vitals/I&O/Wt Last Vital Signs Temp 98.3 F 05/07/23 20:00 Pulse 77 05/07/23 20:00 Resp 17 05/07/23 20:00 BP 161/68 05/07/23 20:00 Pulse Ox 93 05/07/23 20:00 O2 Del Method Room Air 05/07/23 20:00 O2 Flow Rate 3 05/07/23 13:35 FiO2 35 05/06/23 21:45 05/07/23 05/07/23 05/07/23 06:59 14:59 22:59 Intake Total 154.733 / 2405.401 0554.75 / 1104.75 240 / 1344.75 Output Total 450 / 3800 880 / 880 Balance -295.267 / -2537.900 224.75 / 224.75 240 / 464.75 Weight last 48 hrs Weight 116.205 kg Weight 118 kg Physical Exam 2 Narrative: awake ,alert heent s s2 rrr + edema Data 05/07/23 11:12 05/07/23 16:00 Micro: Microbiology 05/05/23 15:40 Gram Stain - Final Sputum - Expectorated Sputum Sputum Culture - Final 05/04/23 19:55 Blood Culture - Preliminary Blood 05/04/23 18:01 Blood Culture - Preliminary Blood A&P Assessment and plan (1) ESRD (end stage renal disease) on dialysis: Plan 1. CKD 5 now progressed to ESRD: Patient presented with volume overload severe metabolic acidosis and uremic symptoms. initiated HD via AV fistula. Ultrafiltration as tolerated,next hd tomorrow 2. Acute respiratory failure with hypoxia likely from volume overload 3. History of hypertension 4. Anemia, ANGELICA ordered Attestations 2 Medical Necessity Statement*: per [facility] Coding Level of Care Code Acute Code for Chg Fwd Diagnoses ESRD (end stage renal disease) on dialysis N18.6; Z99.2
[2023-05-07] MEDS: cefTRIAXone 1,000 MG in sodium chloride 0.9% (plus) 50 ML 100 MG IV (20:44)
[2023-05-07] MEDS: atorvastatin 40 mg Tablet PO (20:44)
[2023-05-07 21:37] LABS: Glucose Point of Care 159 mg/dL (70-110)
[2023-05-08] VITALS (13 sets, daily range): BP systolic 120–170; BP diastolic 43–71; PULSE 66–88; RESP 16–21; TEMP 36.7; O2SAT 89–95; BMI 35.2
[2023-05-08] MEDS: heparin 5,000 unit/mL INJ 1 mL 5000 UNIT SUBCUT ×2 (01:55→12:58)
[2023-05-08] MEDS: ipratropium-albuterol 3 mL Neb INHALATION ×4 (02:09→21:04)
[2023-05-08 05:17] LABS: Basophils % 0.3 %; Eosinophils # 0.4 10^3/uL (0.0-0.8); Hematocrit 26.8 % (37-53); Lymphocytes # 1.5 10^3/uL (0.8-4.8); Lymphocytes % 14.2 %; Mean Corpuscular HGB Conc 32.1 g/dL (30-55); Mean Corpuscular Hemoglobin 29.8 pg (27-33); Mean Corpuscular Volume 92.7 fl (82-101); Mean Platelet Volume 10.6 fL (7.4-10.4); Monocytes # 1.5 10^3/uL (0.2-0.9); Monocytes % 14.8 %; Neutrophils # 6.77 10^3/uL (1.8-7.7); Neutrophils % 65.6 %; Nucleated Red Blood Cells % 0 %; Platelet Count 201 10^3/cmm (157-399); Red Blood Count 2.89 10^6/uL (3.85-5.65); Red Cell Distribution Width 14.1 % (12.1-15.1); White Blood Count 10.32 10^3/uL (3.29-11.43)
[2023-05-08] MEDS: FUROsemide 10 mg/mL SDV 10mL 80 MG IVP ×2 (05:22→17:42)
[2023-05-08] MEDS: benzonatate 100 mg Capsule PO ×2 (05:32→22:21)
[2023-05-08 05:47] LABS: Anion Gap 15.2 (5-19); Blood Urea Nitrogen 62 mg/dL (8-23); Calcium 8.8 mg/dL (8.5-10.5); Carbon Dioxide 26 mmol/L (22-29); Chloride 101 mmol/L (98-107); Glucose 97 mg/dL (65-115); Osmolality Calculated 306 mOsm/kg (285-295); Potassium 3.2 mmol/L (3.5-5.1); Sodium 139 mmol/L (136-145)
--- NOTE | 2023-05-08 06:00 | ECG_ITS ---
[facility] Test Date: 2023-05-08 Pat Name: Geovanny Lujan Department: Room: 106 Gender: Male Pediatric Audiologist: : 1940 Requested By: Karina Gardner Order Number: [id number] Toney MD: Arcenio Mroris M.D. Interpretive Statements NAME OF STUDY: LEXISCAN SESTAMIBI STRESS TEST INDICATION: [R/O ISCHEMIA, ] Procedure: At the baseline, the blood pressure was 169/66 mmHg with a heart rate of 70 bpm. The electrocardiogram showed normal sinus rhythm, normal axis with normal ST and T's. The Lexiscan was infused over a period of 20 seconds. A total of 0.4 mg of Lexiscan was infused. The stress phase was continued for a total of 5 minutes. Heart rate was at the end of stress phase was 79 bpm and a blood pressure of 123/67 mmHg. The EKG at the peak infusion revealed normal sinus rhythm with no significant ST-T wave changes. Frequent PVCs were seen. Sestamibi was injected 20 seconds after the Lexiscan infusion. Blood pressure at the end of recovery phase was 170/69 mmHg with a heart rate of 88 bpm. Conclusion: 1. Normal EKG response to Lexiscan infusion 2. No Lexiscan induced chest pain or cardiac arrhythmia. 3. Normal blood pressure and heart rate response. 4. Sestamibi/sestamibi perfusion scan pending; see separate report. Electronically Signed On 05-27-2023 20:06:34 [employer] by Arcenio Morris M.D. [email or web address]
[2023-05-08 06:29] LABS: Glucose Point of Care 101 mg/dL (70-110)
[2023-05-08] MEDS: regadenoson 0.4 Mg/5 ml Syringe IVP (07:55)
[2023-05-08] MEDS: ondansetron 2 mg/ML SDV 2 mL 4 MG IVP (08:01)
[2023-05-08] MEDS: pantoprazole 40 mg SDV IVP ×2 (09:05→21:22)
[2023-05-08] MEDS: allopurinol 100 mg Tablet 50 MG PO (09:06)
[2023-05-08] MEDS: tamsulosin 0.4 mg Capsule PO (09:06)
[2023-05-08] MEDS: ferrous sulfate EC 325 mg Tablet PO (09:06)
[2023-05-08] MEDS: metOLazone 5 MG Tablet PO (09:06)
[2023-05-08] MEDS: hyDRALAzine 50 mg Tablet PO ×2 (09:06→15:11)
[2023-05-08] MEDS: insulin glargine 100 units/1 mL 20 UNIT SUBCUT (09:07)
[2023-05-08] MEDS: aspirin 81 mg EC Tablet PO (09:07)
[2023-05-08] MEDS: metoprolol succinate ER (24 HR) 50 mg Tablet PO (09:07)
[2023-05-08] MEDS: sucralfate 1 gm Tablet PO ×3 (09:07→22:21)
--- NOTE | 2023-05-08 11:42 | P.PN_ITS ---
Subjective 2 Subjective: Patient is doing well. Denies complaints of chest pain. Had stress test today that shows large sized prior infarction in LCx and RCA territory with minimal reversibility in left circumflex artery territory. Vitals/I&O/Wt Last Vital Signs Temp 98.0 F 05/08/23 03:50 Pulse 88 05/08/23 08:10 Resp 20 H 05/08/23 08:00 BP 170/69 05/08/23 08:10 Pulse Ox 91 05/08/23 08:00 O2 Del Method Room Air 05/08/23 08:00 O2 Flow Rate 3 05/08/23 02:00 FiO2 35 05/06/23 21:45 05/07/23 05/08/23 05/08/23 22:59 06:59 14:59 Intake Total 680 / 1784.75 50 / 1834.75 Output Total 900 / 1780 550 / 2330 Balance -220 / 4.75 -500 / -495.25 Weight last 48 hrs Weight 256 lb 3 oz Weight 260 lb 2.327 oz Physical Exam 2 Narrative: GENERAL: Patient is alert, awake and oriented x3. [] NECK: No jugular vein distension. [] HEENT: No cyanosis. No icterus. No pallor. [] HEART: Regular S1 and S2. No murmur, rub or gallop. [] LUNGS: Clear to auscultate bilaterally. [] CENTRAL NERVOUS SYSTEM: Grossly nonfocal. [] EXTREMITIES: Lower extremities with 1+ edema bilaterally. Data 05/08/23 04:23 05/08/23 04:23 Micro: Microbiology 05/08/23 09:10 Occult Blood (FIT) - Final Stool - Stool Aspirate 05/05/23 15:40 Gram Stain - Final Sputum - Expectorated Sputum Sputum Culture - Final A&P Assessment and plan (1) Non-ST elevation PR (NSTEMI): (2) CHF (congestive heart failure): Qualifiers: Heart failure chronicity: acute Heart failure type: unspecified Qualified Code(s): I50.9 - Heart failure, unspecified (3) Type 2 diabetes mellitus with diabetic polyneuropathy, with long-term current use of insulin: (4) CKD (chronic kidney disease), stage IV: Plan Stress test not showing significant ischemia. 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 Minimal reversibility in left circumflex artery territory. Will continue with medical therapy. Continue dual antiplatelet therapy. High intensity statin therapy. Thank you for involving us with care of this patient. We will continue to follow. Please call with questions Attestations 2 Medical Necessity Statement*: Care expected to cross 2 midnights. Coding Level of Care Code Acute Code for [facility] Diagnoses Non-ST elevation PR (NSTEMI) I21.4 CHF (congestive heart failure) I50.9 Heart failure chronicity: acute Heart failure type: unspecified Type 2 diabetes mellitus with diabetic polyneuropathy, with long-term current use of insulin E11.42; Z79.4 CKD (chronic kidney disease), stage IV N18.4
[2023-05-08 12:10] LABS: Glucose Point of Care 194 mg/dL (70-110)
--- NOTE | 2023-05-08 12:37 | NMCV_ITS ---
NM estephania perf SPECT r/s* [id number] Geovanny Lujan Age: 82 Gender: M : 1940 Exam Date: 05/08/2023 06:44 Ordering Phys: Karina Gardner MD Technologist: OMAR Isbell Exam Location: [facility] Indications: SOB STRESS TEST Please see separate stress test report in [facility] for full findings IMAGE PROTOCOL Rest/Stress 1 Lexiscan Day Radiopharmaceutical Dose (mCi) Administration Site Administered by Rest: Tc-99m 10.0 IV OMAR Isbell Sestamibi Stress:Tc-99m 31.1 IV OMAR Isbell Sestamibi Rest: 08-May-2023 60 Discovery 630 Stress: 08-May-2023 30 Discovery 630 0.4mg Lexiscan. Supine position only as patient was unable to lay prone. SPECT RESULTS Technical Quality: Good Raw Data Analysis: Normal Image Corrections: No attenuation or motion correction applied Summed Stress Score: 14 Summed Rest Score: 14 Summed Difference Score: 1 PERFUSION FINDINGS There is a large in size, mostly fixed perfusion defect in inferolateral and anterolateral wood. This is consistent with large sized prior infarct with minimal [place]ol[place]-infarct ischemia in left circumflex artery territory. There is a large sized, fixed perfusion defect noted in left inferior wall. This is consistent with large sized prior infarct in RCA territory. No ischemia seen. FUNCTIONAL RESULTS (calculated via Gated SPECT) Stress Image LV EF (%): 33 Stress EDV (mL):262 TID: 1.01 Stress ESV (mL):176 FUNCTIONAL FINDINGS: LV systolic function is moderate to severely reduced with EF of 33%. Moderate to severe global hypokinesis seen IMPRESSIONS 1. Abnormal myocardial perfusion imaging with large sized area of prior infarct with minimal carolina-infarct ischemia seen in left circumflex artery territory. 2. Large sized area of prior infarct seen in RCA territory. 3. LV systolic function is moderate to severely reduced with EF of 33% Arcenio Morris MD (Electronically Signed) Final Date: 08 May 2023 10:55 S
--- NOTE | 2023-05-08 12:51 | P.PN_ITS ---
Subjective 2 Subjective: on RA Vitals/I&O/Wt Last Vital Signs Temp 98.0 F 05/08/23 03:50 Pulse 71 05/08/23 12:00 Resp 18 05/08/23 12:00 BP 147/57 05/08/23 12:00 Pulse Ox 89 L 05/08/23 12:00 O2 Del Method Room Air 05/08/23 12:00 O2 Flow Rate 3 05/08/23 02:00 FiO2 35 05/06/23 21:45 05/07/23 05/08/23 05/08/23 22:59 06:59 14:59 Intake Total 680 / 1784.75 50 / 1834.75 Output Total 900 / 1780 550 / 2330 Balance -220 / 4.75 -500 / -495.25 Weight last 48 hrs Weight 116.205 kg Weight 118 kg Physical Exam 2 Narrative: awake ,alert heent s s2 rrr + edema Data 05/08/23 04:23 05/08/23 04:23 Micro: Microbiology 05/08/23 09:10 Occult Blood (FIT) - Final Stool - Stool Aspirate 05/05/23 15:40 Gram Stain - Final Sputum - Expectorated Sputum Sputum Culture - Final A&P Assessment and plan (1) ESRD (end stage renal disease) on dialysis: Plan 1. CKD 5 now progressed to ESRD: Patient presented with volume overload severe metabolic acidosis and uremic symptoms. initiated HD via AV fistula- S/P one session. On RA now , if cr stable , can dc with nephro follow up and re eval as out pt 2. Acute respiratory failure with hypoxia likely from volume overload 3. History of hypertension 4. Anemia, ANGELICA ordered Attestations 2 Medical Necessity Statement*: per medicine Coding Level of Care Code Acute Code for Chg Fwd Diagnoses ESRD (end stage renal disease) on dialysis N18.6; Z99.2
--- NOTE | 2023-05-08 12:52 | P.PN_ITS ---
Subjective 2 Subjective: Patient just returned from stress test this morning. Result is pending at this time. He states he feels well. Dialysis canceled today. Vitals/I&O/Wt Last Vital Signs Temp 98.0 F 05/08/23 03:50 Pulse 71 05/08/23 12:00 Resp 18 05/08/23 12:00 BP 147/57 05/08/23 12:00 Pulse Ox 89 L 05/08/23 12:00 O2 Del Method Room Air 05/08/23 12:00 O2 Flow Rate 3 05/08/23 02:00 FiO2 35 05/06/23 21:45 05/07/23 05/08/23 05/08/23 22:59 06:59 14:59 Intake Total 680 / 1784.75 50 / 1834.75 Output Total 900 / 1780 550 / 2330 Balance -220 / 4.75 -500 / -495.25 Weight last 48 hrs Weight 116.205 kg Weight 118 kg Physical Exam 2 Narrative: General: No acute distress, AO x3, 3LNC oxygen supplementation, obese Chest: Bilateral bronchial breath sounds with occasional rhonchi, CTA b/l CVS: S1-S2 regular, Abdomen: Soft, nontender, no organomegaly, bowel sounds present, morbidly obese Neuro: No focal deficits, no facial deformity, AO x3 Extremity: Bilateral pedal edema 1+ Data 05/08/23 04:23 05/08/23 04:23 Micro: Microbiology 05/08/23 09:10 Occult Blood (FIT) - Final Stool - Stool Aspirate 05/05/23 15:40 Gram Stain - Final Sputum - Expectorated Sputum Sputum Culture - Final A&P Assessment and plan (1) Acute respiratory failure with hypoxia: Most likely in setting of CHF exacerbation. Patient also does have history of COPD and obstructive sleep apnea. BiPAP as needed. For now start patient on high flow nasal cannula given increased work of breathing. Oxygen supplementation keeping saturation over 90%. Fluid restriction up to 1500 cc. Holley catheterization. Strict input output charting, daily weights. Urine output of around 1 L since admission. Will repeat 100 mg of IV Lasix along with metolazone 5 mg oral daily. D-dimer 2.56. Appreciate echocardiogram and CT chest results. Echocardiogram shows mildly low EF of 45 to 50%. Ipratropium, Xopenex every 6 hours, Pulmicort twice daily. Hold off on steroids for now. CT chest concerning for consolidation in the left upper lobe lingular and lower lobe with concern for pneumonia. Follow-up blood culture, sputum culture pending, MRSA swab. Urine Legionella and bacterial antigen pending. For now continue with treatment for community-acquired pneumonia with IV ceftriaxone and azithromycin. D-dimer mildly elevated. Patient has CKD with high chances of requiring hemodialysis. Patient already on heparin drip. So for now we will hold off on CTA. If needed can plan for VQ scan. Check lower limb Dopplers.: NO DVT (2) CHF (congestive heart failure): Qualifiers: Heart failure chronicity: acute Heart failure type: unspecified Qualified Code(s): I50.9 - Heart failure, unspecified (3) Non-ST elevation [place] (NSTEMI): Troponin cycled trending up with a delta of 206 hours. Echocardiogram results shows a new low EF. Patient denies any active chest pain. Continue with aspirin and statin. Continue with heparin drip. Will consult cardiology for further recommendations. Patient is agreeable for cardiac angiogram if needed. He is aware that angiogram could cause him to have contrast-induced nephropathy leading to possible dialysis. Plan for stress test today. Results pending at this time. (4) COPD (chronic obstructive pulmonary disease): (5) Obstructive sleep apnea: Continue BiPAP nightly. (6) CKD (chronic kidney disease), stage IV: Past history. Baseline creatinine 3-3.8. Patient does have AV fistula in place but never on dialysis. Medical reconciliation done for nephrotoxic drugs. Appreciate urine lites, urine creatinine. Continue holley cath Renal ultrasound appreciated. Dialysis to start during hospital stay (7) Essential (primary) hypertension: With history of LVH on echocardiogram. Goal blood pressure less than 140/90 mmHg. Continue with home dose of hydralazine, metoprolol. Hold off on amlodipine and losartan for now. Will restart as per goal blood pressures. Will uptitrate as for goal blood pressures. (8) Type 2 diabetes mellitus with diabetic polyneuropathy, with long-term current use of insulin: Check A1c. Insulin sliding scale at moderate dose protocol. Continue with home dose of glargine. (9) Iron deficiency anemia: Hemoglobin down to 8.7. Patient denies any melena. Gives history of long-term iron deficiency anemia. Most likely in setting of CKD. Appreciate recent iron panel. Appreciate B12 and folate levels results. For now start on Protonix IV twice daily and Carafate ACHS. Monitor hemoglobin daily for now. (10) AV fistula: (11) Dyspnea on exertion: (12) Acquired left ventricular hypertrophy: Plan CODE STATUS: Discussed in detail with the patient. will be the DPOA. Patient does not want any kind of resuscitation measures or life support. DNR/DNI. Heparin 5000 every 12 hourly for DVT prophylaxis Protonix for PUD prophylaxis Renal diabetic diet. Plan for the day: 05/08/2023 Continue lasix 80 IV BID. Nephrology consulted. Patient had 1 session of dialysis and subsequently has not really required any more. Continue to monitor labs. Discussed with nephrology over the phone. He may be able to start dialysis as an outpatient. Nephrology will review labs and then decide further management at this point. For [id number] [place]. Troponins high and positive. Patient underwent stress test. Denies any chest pain at this time. Awaiting results. Heparin drip was stopped yesterday. Goal blood pressure less than 140/90 mmHg. Continue with metoprolol and hydralazine for now. Holding other hype antihypertensives for now. Appreciate cardiology recommendations. Awaiting results of stress test at which point further management will be dictated. Continue to monitor BMP q12H since patient is on lasix. Continue Lasix 80 IV twice daily. For pneumonia follow-up MRSA swab and sputum culture results. For now continue with antibiotics for community-acquired pneumonia. MRSA swab negative. Leukocytosis resolved. Continue antibiotics to complete total 14 days. Attestations 2 Medical Necessity Statement*: Most likely plan for discharge in next 24 to 48 hours. Diagnoses Acute respiratory failure with hypoxia J96.01 CHF (congestive heart failure) I50.9 Heart failure chronicity: acute Heart failure type: unspecified Non-ST elevation [place] (NSTEMI) I21.4 COPD (chronic obstructive pulmonary disease) J44.9 Obstructive sleep apnea G47.33 CKD (chronic kidney disease), stage IV N18.4 Essential (primary) hypertension I10 Type 2 diabetes mellitus with diabetic polyneuropathy, with long-term current use of insulin E11.42; Z79.4 Iron deficiency anemia D50.9 AV fistula I77.0 Dyspnea on exertion R06.00 Acquired left ventricular hypertrophy I51.7
[2023-05-08] MEDS: insulin lispro 100 unit/1 mL SUBCUT ×2 (12:57→17:42)
[2023-05-08 17:06] LABS: Glucose Point of Care 183 mg/dL (70-110)
[2023-05-08] MEDS: budesonide 0.5 mg/2 mL Neb INHALATION (21:04)
[2023-05-08] MEDS: cefTRIAXone 1,000 MG in sodium chloride 0.9% (plus) 50 ML 100 MG IV (21:22)
[2023-05-08] MEDS: atorvastatin 40 mg Tablet PO (21:22)
[2023-05-08] MEDS: hyDRALAzine 25 mg Tablet 50 MG PO (21:23)
[2023-05-08 21:44] LABS: Glucose Point of Care 118 mg/dL (70-110)
[2023-05-09] VITALS (10 sets, daily range): BP systolic 133–166; BP diastolic 45–96; PULSE 69–79; RESP 16–21; TEMP 36–36.7; O2SAT 90–97
[2023-05-09] MEDS: heparin 5,000 unit/mL INJ 1 mL 5000 UNIT SUBCUT ×2 (01:12→13:08)
[2023-05-09 04:04] LABS: Basophils % 0.3 %; Eosinophils # 0.7 10^3/uL (0.0-0.8); Eosinophils % 5.7 %; Hematocrit 27.2 % (37-53); Lymphocytes # 1.4 10^3/uL (0.8-4.8); Lymphocytes % 12.2 %; Mean Corpuscular HGB Conc 32.7 g/dL (30-55); Mean Corpuscular Hemoglobin 30.7 pg (27-33); Mean Corpuscular Volume 93.8 fl (82-101); Mean Platelet Volume 9.6 fL (7.4-10.4); Monocytes # 1.7 10^3/uL (0.2-0.9); Monocytes % 14.9 %; Neutrophils # 7.71 10^3/uL (1.8-7.7); Nucleated Red Blood Cells % 0 %; Platelet Count 187 10^3/cmm (157-399); White Blood Count 11.69 10^3/uL (3.29-11.43)
[2023-05-09 04:26] LABS: Anion Gap 17.6 (5-19); Blood Urea Nitrogen 73 mg/dL (8-23); Calcium 8.4 mg/dL (8.5-10.5); Carbon Dioxide 25 mmol/L (22-29); Chloride 98 mmol/L (98-107); Glucose 141 mg/dL (65-115); Magnesium 2.3 mg/dL (1.7-2.3); Osmolality Calculated 308 mOsm/kg (285-295); Potassium 3.6 mmol/L (3.5-5.1); Sodium 137 mmol/L (136-145)
[2023-05-09] MEDS: FUROsemide 10 mg/mL SDV 10mL 80 MG IVP (06:25)
[2023-05-09 06:46] LABS: Glucose Point of Care 105 mg/dL (70-110)
--- NOTE | 2023-05-09 07:48 | P.PN_ITS ---
Subjective 2 Subjective: Patient is doing well. no chest pain. Vitals/I&O/Wt Last Vital Signs Temp 97.8 F 05/09/23 07:05 Pulse 72 05/09/23 07:05 Resp 18 05/09/23 07:05 BP 163/47 05/09/23 07:05 Pulse Ox 97 05/09/23 07:05 O2 Del Method Nasal Cannula 05/09/23 07:05 O2 Flow Rate 2 05/09/23 02:35 FiO2 35 05/06/23 21:45 05/08/23 05/09/23 05/09/23 22:59 06:59 14:59 Intake Total 290 / 290 Output Total 750 / 750 1000 / 1750 Balance -460 / -460 -1000 / -1460 Weight last 48 hrs Weight 252 lb 8 oz Weight 256 lb 3 oz Physical Exam 2 Narrative: GENERAL: Patient is alert, awake and oriented x3. [] NECK: No jugular vein distension. [] HEENT: No cyanosis. No icterus. No pallor. [] HEART: Regular S1 and S2. No murmur, rub or gallop. [] LUNGS: Clear to auscultate bilaterally. [] CENTRAL NERVOUS SYSTEM: Grossly nonfocal. [] EXTREMITIES: Lower extremities with 1+ edema bilaterally. Data 05/09/23 03:57 05/09/23 03:57 Micro: Microbiology 05/08/23 09:10 Occult Blood (FIT) - Final Stool - Stool Aspirate A&P Assessment and plan (1) Non-ST elevation CO (NSTEMI): (2) CHF (congestive heart failure): Qualifiers: Heart failure chronicity: acute Heart failure type: unspecified Qualified Code(s): I50.9 - Heart failure, unspecified (3) Type 2 diabetes mellitus with diabetic polyneuropathy, with long-term current use of insulin: (4) CKD (chronic kidney disease), stage IV: Plan On stress testing results, we will continue with medical therapy. Continue dual antiplatelet therapy. Patient is still hopeful that he can avoid long-term dialysis. High intensity statin therapy. Thank you for involving us with care of this patient. Patient is stable to be discharged from cardiology standpoint. Please call with questions Attestations 2 Medical Necessity Statement*: Care expected to cross 2 midnights. Coding Level of Care Code Acute Code for Chg Fwd Diagnoses Non-ST elevation CO (NSTEMI) I21.4 CHF (congestive heart failure) I50.9 Heart failure chronicity: acute Heart failure type: unspecified Type 2 diabetes mellitus with diabetic polyneuropathy, with long-term current use of insulin E11.42; Z79.4 CKD (chronic kidney disease), stage IV N18.4
--- NOTE | 2023-05-09 08:06 | PM.DCS ---
Discharge Providers Date of Admission: 05/04/23 20:01 Date of Discharge: May 09, 2023 Attending Provider at Admission: Josue Oneil MD Attending Provider at Discharge: Karina Gardner MD Primary Care Provider: Carolyn Tilley DO Diagnoses at Discharge Discharge Diagnosis (1) ESRD (end stage renal disease) on dialysis: Status: Acute (2) Obstructive sleep apnea: Status: Acute (3) Essential (primary) hypertension: Status: Chronic (4) Acquired left ventricular hypertrophy: Status: Acute (5) COPD (chronic obstructive pulmonary disease): Status: Acute (6) AV fistula: Status: Acute (7) Dyspnea on exertion: Status: Acute (8) Iron deficiency anemia: Status: Acute (9) Acute respiratory failure with hypoxia: Status: Acute Reason for Visit Reason for Visit: sob vomit nausea cough urgent care called Brief History: As per Dr. Marilyn Small Maria A Lujan is a 82 year old male with past medical history of hypertension, hyperlipidemia, type 2 diabetes mellitus, and diabetic foot, gout, carotid artery disease, COPD, CKD stage IV not on dialysis who had AV fistula placed few years ago presents to the ER today because of worsening difficulty in breathing for last few weeks. As per patient he has been having dyspnea on exertion for last few weeks but for last 2 or 3 days he started having difficulty in breathing even at rest or laying down. Denies any nausea, vomiting but does complain of chest heaviness on and off. On presentation to the ER he was found to be hypoxic requiring 4 to 5 L of oxygen supplementation to maintain saturation of 90%, getting short of breath on minimal ambulation or conversation. Denies any subjective fever fever or increased cough at home. Hospital Course Hospital Course Patient presented to ER with shortness of breath along with nausea vomiting chest heaviness secondary to congestive heart failure also found to have left-sided pneumonia. On admission had NSTEMI with positive delta troponins. Cardiology was consulted. Patient undergoing aggressive IV diuresis with Lasix drip however did not have good urine response therefore nephrology was consulted. He has been started on dialysis during hospital stay. Had a goals of care discussion with patient's family regarding cardiac angiogram given NSTEMI possibility of ending up on dialysis due to contrast-induced nephropathy. Patient ended up having a stress test which did show large [place]-infarct ischemia from prior. Discussed with cardiology. Plan to medically manage the patient for now since he is not having any chest pain. Patient okay to discharge from nephrology and cardiology standpoint to follow-up as an outpatient. Med rec to be completed and given to patient at discharge. His dialysis chair time has been set up starting 05/11/2023 2:30 PM. He will be dialysis Sunday. Patient will be discharged home in stable condition at this time. Close with nephrology and cardiology prior to discharge. Also called patient's over the phone and updated her of the case. Physical Exam Narrative: General: No acute distress, AO x3, 3LNC oxygen supplementation, obese Chest: Bilateral bronchial breath sounds with occasional rhonchi, CTA b/l CVS: S1-S2 regular, Abdomen: Soft, nontender, no organomegaly, bowel sounds present, morbidly obese Neuro: No focal deficits, no facial deformity, AO x3 Extremity: Bilateral pedal edema 1+ Discharge Data Studies Completed and Pending Completed Studies During Hospitalization Category Date Time Status CT chest wo con [id number] Stat Cat Scan 05/04/23 20:31 Completed Sestamibi Stress Test Request Routine Exams 05/08/23 06:00 Draft XR chest 1V portable [id number] Stat Exams 05/04/23 18:22 Completed NM estephania perf SPECT r/s* [id number] Routine Nuc Med 05/08/23 12:37 [place] [id number] Routine Ultrasound 05/05/23 06:00 Completed CV. echo complete* [id number] Routine Ultrasound 05/05/23 06:00 Completed US renal BI* [id number] Routine Ultrasound 05/05/23 06:00 Completed Pending at discharge Category Date Time Status Blood Cultures ([facility]) Routine Lab 05/04/23 18:01 Results Blood Cultures ([facility]) Routine Lab 05/04/23 19:55 Results Radiology Impressions Chest X-Ray 05/04/23 18:22 IMPRESSION: 1. Left lingular and left lower lobe airspace disease suspicious for pneumonia, stable compared with the chest radiograph done earlier in the evening on 05/04/2023. Recommend followup chest imaging to insure resolution of these findings. 2. Stable small left pleural effusion. 3. Incidental/nonacute findings are listed in the report. Chest CT 05/04/23 20:31 IMPRESSION: 1. Left upper lobe, lingular, and lower lobe airspace disease with reticulonodular interstitial thickening suspicious for pneumonia, including atypical organisms. Recommend followup chest imaging to insure resolution of these findings. 2. Moderate bilateral pleural effusions. 3. Compressive atelectasis in the right and left lower lobes. 4. Cholelithiasis. 5. Smell low-density nodules in both thyroid lobes, the largest in the left lobe measures 1.1 x 0.8 cm (series 3, image 6). No follow-up is recommended. 6. Nonspecific mediastinal lymphadenopathy, which could be reactive in nature. Followup imaging recommended to insure stability/resolution however. 7. Incidental/nonacute findings are listed in the report. COMMENTS: Consistent with the [employer] [employer]'s Incidental Findings Committee white paper (J Am Ofelia Radiol 2015): In patients aged 35 years and older with an incidental thyroid nodule equal to or greater than 1.[address], MRI or extrathyroidal US, further evaluation with dedicated thyroid US is recommended for patients with normal life expectancy and without comorbidities. For smaller nodules without suspicious features, no further evaluation or follow up is recommended. Renal Ultrasound 05/05/23 06:00 IMPRESSION: Unremarkable kidneys and bladder. Venous Duplex 05/05/23 06:00 IMPRESSION: No evidence of deep vein thrombosis. Laboratory Results WBC 11.69 10^3/uL (3.29-11.43) H 05/09/23 03:57 RBC 2.90 10^6/uL (3.85-5.65) L 05/09/23 03:57 Hgb 8.90 g/dL (11.27-16.99) L 05/09/23 03:57 Hct 27.2 % (37-53) L 05/09/23 03:57 MCV 93.8 fl (82-101) 05/09/23 03:57 MCH 30.7 pg (27-33) 05/09/23 03:57 MCHC 32.7 g/dL (30-55) 05/09/23 03:57 RDW 14.0 % (12.1-15.1) 05/09/23 03:57 Plt Count 187 10^3/cmm (157-399) 05/09/23 03:57 MPV 9.6 fL (7.4-10.4) 05/09/23 03:57 Neut % (Auto) 66.0 % 05/09/23 03:57 Lymph % (Auto) 12.2 % 05/09/23 03:57 [place] % (Auto) 14.9 % 05/09/23 03:57 Eos % (Auto) 5.7 % 05/09/23 03:57 Baso % (Auto) 0.3 % 05/09/23 03:57 Neut # (Auto) 7.71 10^3/uL (1.8-7.7) H 05/09/23 03:57 Lymph # (Auto) 1.4 10^3/uL (0.8-4.8) 05/09/23 03:57 [place] # (Auto) 1.7 10^3/uL (0.2-0.9) H 05/09/23 03:57 Eos # (Auto) 0.7 10^3/uL (0.0-0.8) 05/09/23 03:57 Baso # (Auto) 0.0 10^3/uL (0.0-0.1) 05/09/23 03:57 Nucleated RBC % (auto) 0 % 05/09/23 03:57 Nucleated RBCs # 0.0 /100WBC 05/09/23 03:57 APTT 65.3 SECONDS (23.9-36.7) H 05/07/23 09:49 D-Dimer 2.56 ug/mLFEU (0-0.59) H 05/04/23 20:27 Specimen Type Arterial 05/04/23 19:25 Sample Site Radial, right 05/04/23 19:25 ABG pH 7.37 (7.35-7.45) 05/04/23 19:25 ABG pCO2 28.9 mmHg (35-45) L 05/04/23 19:25 ABG pO2 71.5 mmHg (80.0-100.0) L 05/04/23 19:25 ABG HCO3 16.6 mmol/L (22-26) L 05/04/23 19:25 ABG Base Excess -7.6 mmol/L (-2.0-2.0) L 05/04/23 19:25 Hoang Test Pos 05/04/23 19:25 Hematocrit 31.3 % (42-52) L 05/04/23 19:25 O2 Delivery Device Nc 05/04/23 19:25 O2 Liters/Min 4.0 % 05/04/23 19:25 Sweatband Perforator ID Tommy 05/04/23 19:25 Sodium 137 mmol/L (136-145) 05/09/23 03:57 Potassium 3.6 mmol/L (3.5-5.1) 05/09/23 03:57 Chloride 98 mmol/L (98-107) 05/09/23 03:57 Carbon Dioxide 25 mmol/L (22-29) 05/09/23 03:57 Anion Gap 17.6 (5-19) 05/09/23 03:57 BUN 73 mg/dL (8-23) H 05/09/23 03:57 Creatinine 3.6 mg/dL (0.7-1.2) H 05/09/23 03:57 GFR Calculation Not Reportable 05/09/23 03:57 Glucose 141 mg/dL (65-115) H 05/09/23 03:57 POC Glucose 105 mg/dL (70-110) 05/09/23 06:29 Estimat Average Glucose 123 05/05/23 02:58 Hemoglobin A1c 5.9 % (4.0-6.0) 05/05/23 02:58 Calculated Osmolality 308 mOsm/kg (285-295) H 05/09/23 03:57 Lactic Acid 2.0 mmol/L (0.5-2.2) 05/04/23 20:27 Calcium 8.4 mg/dL (8.5-10.5) L 05/09/23 03:57 Phosphorus 5.1 mg/dL (2.5-4.5) H 05/05/23 02:58 Magnesium 2.3 mg/dL (1.7-2.3) 05/09/23 03:57 Total Bilirubin 0.6 mg/dL (0.15-1.2) 05/07/23 03:23 AST 51 U/L (0-40) H 05/07/23 03:23 ALT 32 U/L (0-41) 05/07/23 03:23 Alkaline Phosphatase 49 U/L (40-130) 05/07/23 03:23 Troponin T 5th Gen ng/L 526 ng/L (0-15) H* 05/06/23 02:53 Troponin T Baseline 81 ng/L (0-15) H 05/04/23 18:39 Troponin T 120 Minute 96.24 ng/L (0-15) H 05/04/23 20:27 Delta Troponin T 15.24 ABS# (0-10) H* 05/04/23 20:27 Troponin T Hi Sens 6Hr 199.7 ng/L (0-15) H 05/05/23 00:35 Troponin T Hi Sens 6Hr Delta 118.7 ng/L (0-12) H* 05/05/23 00:35 C-Reactive Protein 117.8 mg/L (0.0-4.9) H 05/07/23 02:00 NT-Pro-B Natriuret Pep 43149 pg/mL (0-450) H 05/04/23 18:39 Total Protein 5.4 g/dL (6.6-8.7) L 05/07/23 03:23 Albumin 3.1 g/dL (3.5-5.2) L 05/07/23 03:23 Globulin 2.3 g/dL (1.3-4.6) 05/07/23 03:23 Lipase 37 U/L (13-60) 05/04/23 18:39 Vitamin B12 401 pg/mL (232-1245) 05/04/23 20:27 Folate 7.7 ng/mL (4.5-32.2) 05/05/23 02:58 Procalcitonin 0.36 ng/mL (0-0.5) 05/05/23 02:58 TSH 1.24 uIU/mL (0.27-4.20) 05/04/23 20:27 Urine Color Yellow (Yellow) 05/04/23 22:15 Urine Appearance Hazy (CLEAR) A 05/04/23 22:15 Urine pH 5 (5-7) 05/04/23 22:15 Ur Specific [place] 1.015 (1.005-1.030) 05/04/23 22:15 Urine Protein 3+ (Negative) H 05/04/23 22:15 Urine Glucose (UA) Norm (Normal) 05/04/23 22:15 Urine Ketones 1+ (Negative) H 05/04/23 22:15 Urine Blood 2+ (Negative) H 05/04/23 22:15 Urine Nitrate Negative (Negative) 05/04/23 22:15 Urine Bilirubin Neg (Negative) 05/04/23 22:15 Urine Urobilinogen Norm mg/dL (Negative) 05/04/23 22:15 Ur Leukocyte Esterase Negative (Negative) 05/04/23 22:15 Urine RBC 5-10 /hpf (0-2) H 05/04/23 22:15 Urine WBC 5-10 /hpf (0-5) H 05/04/23 22:15 Ur Eosinophil Smear 0 (0-0) 05/04/23 22:15 Ur Squamous Epith Cells 0-4 /hpf (0-5) H 05/04/23 22:15 Amorphous Sediment 1+ /hpf 05/04/23 22:15 Urine Bacteria Trace /hpf (NONE) 05/04/23 22:15 Hyaline Casts 0-4 /lpf H 05/04/23 22:15 Fine Granular Casts 0-4 /lpf H 05/04/23 22:15 Coarse Granular Casts 5-10 /lpf H 05/04/23 22:15 Urine Mucus 1+ /hpf 05/04/23 22:15 Urine Eosinophils No eosinophils seen 05/04/23 22:15 Urine Creatinine 94 mg/dL (39-259) 05/04/23 22:15 Hep Bs Antigen Non-reactive (Nonreactive) 05/06/23 02:53 Hep Bs Antibody 13.7 (11.5-1000) 05/06/23 02:53 Influenza Type A Ag negative (Negative) 05/04/23 19:08 Influenza Type B Ag negative (Negative) 05/04/23 19:08 SARS-CoV-2 Ag (Rapid) negative (Negative) 05/04/23 19:08 MRSA (PCR) Not detected (NOT DETECTED) 05/05/23 06:20 Vitals Last Vital Signs Temp 97.8 F 05/09/23 07:05 Pulse 72 05/09/23 07:05 Resp 18 05/09/23 07:05 BP 163/47 05/09/23 07:05 Pulse Ox 97 05/09/23 07:05 O2 Del Method Nasal Cannula 05/09/23 07:05 O2 Flow Rate 2 05/09/23 02:35 FiO2 35 05/06/23 21:45 Discharge Plan Discharge Patient Disposition: Home Condition: Stable Prescriptions: Continued (DME) diabetic shoes See Rx Instructions .Route .MEDSUPPLY Qty: 1 0RF Rx Instructions: As directed acetaminophen 500 mg tablet 500 mg PO TID PRN (Reason: Pain) aspirin [Adult Low Dose Aspirin] 81 mg tablet,delayed release (DR/EC) 81 mg PO DAILY cholecalciferol (vitamin D3) 50 mcg (2,000 unit) capsule 2,000 unit PO DAILY (DME) pen needle, diabetic [BD [place] 2nd Gen Pen Needle] 32 gauge x 5/32 needle See Rx Instructions .ROUTE .MEDSUPPLY Qty: 270 3RF Rx Instructions: As directed (DME) Dexcom G6 Sap Bi Developer Misc See Rx Instructions .Route Qty: 1 0RF Rx Instructions: Check BS 4-6 times a day. (DME) diabetic shoes See Rx Instructions .Route .MEDSUPPLY Qty: 1 0RF Rx Instructions: 3 inserts miscellaneous medical supply Misc 1 ea miscellaneous DAILY Qty: 1 2RF Rx Instructions: medihoney- apply to wound in thin layer daily after cleaning then dress with dry gauze and tape (DME) CPAP, mask, and tubing See Rx Instructions .Route .MEDSUPPLY Qty: 1 0RF Rx Instructions: As directed ferrous sulfate 325 mg (65 mg iron) tablet 325 mg PO DAILY hydroxychloroquine 200 mg tablet 200 mg PO BID Qty: 180 1RF (DME) Dexcom G6 Sensor Device See Rx Instructions .Route Qty: 9 3RF Rx Instructions: Change every 10 days. (DME) Dexcom G6 Transmitter Device See Rx Instructions .ROUTE .COMPLEX Qty: 3 3RF Dose Instruction: CHANGE every 90 DAYS Rx Instructions: CHANGE every 90 DAYS omega 0-rmx-cbk-fish oil [Fish Oil] 300-1,000 mg Capsule 1 cap PO DAILY diphenhydramine HCl 50 mg Tablet 100 mg PO QPM PRN (Reason: Sleep) atorvastatin 40 mg Tablet 40 mg PO BEDTIME allopurinol 100 mg Tablet 50 mg PO DAILY amlodipine 10 mg Tablet 10 mg PO DAILY hydralazine 50 mg Tablet 50 mg PO TID insulin aspart U-100 100 unit/mL (3 mL) Insulin Pen 5 unit SUBCUT TIDWM losartan 50 mg Tablet 50 mg PO BID metoprolol succinate 50 mg Tablet Extended Release 24 Hr 50 mg PO DAILY tamsulosin 0.4 mg Capsule 0.4 mg PO DAILY Changed insulin glulisine U-100 100 unit/mL Insulin Pen 20 unit SUBCUT QAM Qty: 15 0RF Discontinued furosemide 40 mg Tablet 40 mg PO BID Discharge Orders: Discharge Order (Routine); Ordered 05/09/23 Ordered By: Karina Gardner Referrals: [facility] [Other] - 05/11/23 2:30 pm (Be there at 2:30 on Sunday05/11/23) Arcenio Morris M.D [Physician] - 1 month Carolyn Tilley DO [Primary Care Provider] - 06/07/23 10:00 am Lenore Rodriguez FNP [Nurse Practitioner] - 05/18/23 9:30 am Discharge Diet: Cardiac and Diabetic Discharge Activity: Resume usual activity Patient Instructions: Heart Failure (DC), Dialysis Diet (DC), Hemodialysis (DC), CHF Stoplight, Opioid Safety, Post Heart Attack Stoplight Discharge Attestations Time Spent in Discharge Care*: greater than 30 min Quality Metrics Clinical Quality Measures [ No reported AMI, CVA or VTE this stay] Coding Level of Care Code 43717 Total time (in minutes) for Discharge: 40 Diagnoses ESRD (end stage renal disease) on dialysis N18.6; Z99.2 Obstructive sleep apnea G47.33 Essential (primary) hypertension I10 Acquired left ventricular hypertrophy I51.7 COPD (chronic obstructive pulmonary disease) J44.9 AV fistula I77.0 Dyspnea on exertion R06.00 Iron deficiency anemia D50.9 Acute respiratory failure with hypoxia J96.01
--- NOTE | 2023-05-09 09:05 | PC.SOCIAL ---
IMM Updated Updated pt on IMM. No questions voiced. Provided pt a copy. Initialed, dated, & timed copy in chart.
--- NOTE | 2023-05-09 11:11 | P.PN_ITS ---
Subjective 2 Subjective: getting hD Medications: Reviewed: Yes Vitals/I&O/Wt Last Vital Signs Temp 97.8 F 05/09/23 07:05 Pulse 72 05/09/23 07:05 Resp 18 05/09/23 07:05 BP 163/47 05/09/23 07:05 Pulse Ox 97 05/09/23 07:05 O2 Del Method Nasal Cannula 05/09/23 07:05 O2 Flow Rate 2 05/09/23 02:35 FiO2 35 05/06/23 21:45 05/08/23 05/09/23 05/09/23 22:59 06:59 14:59 Intake Total 290 / 290 200 / 200 Output Total 750 / 750 1000 / 1750 Balance -460 / -460 -1000 / -1460 200 / 200 Weight last 48 hrs Weight 114.532 kg Weight 116.205 kg Physical Exam 2 Narrative: awake ,alert heent s s2 rrr + edema Data 05/09/23 03:57 05/09/23 03:57 Micro: Microbiology 05/08/23 09:10 Occult Blood (FIT) - Final Stool - Stool Aspirate A&P Assessment and plan (1) ESRD (end stage renal disease) on dialysis: Plan 1. CKD 5 now progressed to ESRD: Patient presented with volume overload severe metabolic acidosis and uremic symptoms. initiated HD via AV fistula - BUN rising and c/o uremic symptoms - plan to continue HD - 3 times/ week - SW to arrange HD out pt chair 2. Acute respiratory failure with hypoxia likely from volume overload, improved 3. History of hypertension 4. Anemia, ANGELICA ordered Attestations 2 Medical Necessity Statement*: per jeremy Coding Level of Care Code Acute Code for Chg Fwd Diagnoses ESRD (end stage renal disease) on dialysis N18.6; Z99.2
[2023-05-09] MEDS: pantoprazole 40 mg SDV IVP (12:03)
[2023-05-09] MEDS: insulin glargine 100 units/1 mL 20 UNIT SUBCUT (12:03)
[2023-05-09] MEDS: ferrous sulfate EC 325 mg Tablet PO (12:04)
[2023-05-09] MEDS: allopurinol 100 mg Tablet 50 MG PO (12:04)
[2023-05-09] MEDS: sucralfate 1 gm Tablet PO (12:05)
[2023-05-09] MEDS: tamsulosin 0.4 mg Capsule PO (12:05)
[2023-05-09] MEDS: aspirin 81 mg EC Tablet PO (12:05)
[2023-05-09] MEDS: metoprolol succinate ER (24 HR) 50 mg Tablet PO (12:05)
[2023-05-09] MEDS: metOLazone 5 MG Tablet PO (12:06)
[2023-05-09] MEDS: hyDRALAzine 25 mg Tablet 50 MG PO ×2 (12:06→15:07)
[2023-05-09 12:07] LABS: Glucose Point of Care 154 mg/dL (70-110)
[2023-05-09] MEDS: insulin lispro 100 unit/1 mL SUBCUT (12:29)
[2023-05-09] MEDS: ipratropium-albuterol 3 mL Neb INHALATION (13:58)
--- NOTE | 2023-05-09 16:07 | PC.NURSE ---
Patients urinary catheter is removed at 1610 today. Patient tolerated well.
== END 2023-05-09 16:38 | disposition home health service (06) | DRG 280 ==
LOC: ER 19:46 → CSU 20:02
PROVIDERS: Hospitalist; Student in an Organized Health Care Education/Training Program; Admitting Provider Student in an Organized Health Care Education/Training Program; Emergency Provider Emergency Medicine; PCP Family Medicine; Visit Provider Internal Medicine
DX: I13.2 Hypertensive heart and chronic kidney disease with heart failure and with stage 5 chronic kidney disease, or end stage renal disease (principal); J18.9 Pneumonia, unspecified organism; I21.4 Non-ST elevation (NSTEMI) myocardial infarction; N18.6 End stage renal disease; J96.01 Acute respiratory failure with hypoxia; E87.20 Acidosis, unspecified; I50.9 Heart failure, unspecified; E11.22 Type 2 diabetes mellitus with diabetic chronic kidney disease; Z99.2 Dependence on renal dialysis; Z79.4 Long term (current) use of insulin; D50.9 Iron deficiency anemia, unspecified; D63.1 Anemia in chronic kidney disease; M10.9 Gout, unspecified; Z87.891 Personal history of nicotine dependence; E78.2 Mixed hyperlipidemia; G47.33 Obstructive sleep apnea (adult) (pediatric); E11.42 Type 2 diabetes mellitus with diabetic polyneuropathy; N40.0 Benign prostatic hyperplasia without lower urinary tract symptoms; J44.9 Chronic obstructive pulmonary disease, unspecified; Z66 Do not resuscitate
CPT/HCPCS: 36415; 36416; 36600; 51798; 71045; 71046; 71250; 76770; 78452; 80048; 80053; 81001; 81015; 82274; 82570; 82607; 82746; 82803; 82962; 83036; 83605; 83690; 83735; 83880; 84100; 84145; 84443; 84484; 85014; 85018; 85025; 85378; 85730; 85999; 86140; 86403; 86706; 87040; 87070; 87205; 87340; 87400; 87426; 87449; 87641; 87804; 90935; 93005; 93017; 93306; 93970; 94640; 94660; 94664; 96365; 96367; 96372; 96375; 96376; 99285; A9500; C9113; J0456; J0696; J1644; J1815; J1940; J2405; J2785; J7050; J7626; Q3014; Q4081

== ENCOUNTER → 2023-05-29 08:36 | Outpatient (BNVA) | payer MEDICARE, SELFPAY | PROVIDERS: PCP Family Medicine; Visit Provider Internal Medicine | DX: E11.621 Type 2 diabetes mellitus with foot ulcer (principal); L97.522 Non-pressure chronic ulcer of other part of left foot with fat layer exposed; E11.649 Type 2 diabetes mellitus with hypoglycemia without coma; E78.2 Mixed hyperlipidemia; E11.42 Type 2 diabetes mellitus with diabetic polyneuropathy; Z79.4 Long term (current) use of insulin; E11.22 Type 2 diabetes mellitus with diabetic chronic kidney disease; N18.4 Chronic kidney disease, stage 4 (severe); E66.9 Obesity, unspecified; Z86.73 Personal history of transient ischemic attack (TIA), and cerebral infarction without residual deficits; E16.0 Drug-induced hypoglycemia without coma; T38.3X5A Adverse effect of insulin and oral hypoglycemic [antidiabetic] drugs, initial encounter; X58.XXXA Exposure to other specified factors, initial encounter; Z68.34 Body mass index [BMI] 34.0-34.9, adult | CPT/HCPCS: 99214 ==

== ENCOUNTER → 2023-08-06 09:00 | Outpatient (BNVA) | payer MEDICARE, SELFPAY | PROVIDERS: PCP Family Medicine; Visit Provider Podiatrist Foot & Ankle Surgery | DX: E11.8 Type 2 diabetes mellitus with unspecified complications (principal); E11.621 Type 2 diabetes mellitus with foot ulcer; L97.522 Non-pressure chronic ulcer of other part of left foot with fat layer exposed; E11.42 Type 2 diabetes mellitus with diabetic polyneuropathy; Z79.4 Long term (current) use of insulin; L60.3 Nail dystrophy; M20.41 Other hammer toe(s) (acquired), right foot; M20.42 Other hammer toe(s) (acquired), left foot; L84 Corns and callosities | CPT/HCPCS: 11055; 11721 ==

== ENCOUNTER → 2023-08-13 13:59 | Outpatient (BNVA) | payer MEDICARE, SELFPAY | PROVIDERS: PCP Family Medicine; Visit Provider Family Medicine | DX: M25.562 Pain in left knee (principal); I70.202 Unspecified atherosclerosis of native arteries of extremities, left leg | CPT/HCPCS: 73562 ==

== ENCOUNTER → 2023-09-05 11:32 | Outpatient (BNVA) | payer MEDICARE, SELFPAY | PROVIDERS: PCP Family Medicine; Visit Provider Internal Medicine | DX: E11.621 Type 2 diabetes mellitus with foot ulcer (principal); L97.522 Non-pressure chronic ulcer of other part of left foot with fat layer exposed; E11.649 Type 2 diabetes mellitus with hypoglycemia without coma; E78.2 Mixed hyperlipidemia; E11.42 Type 2 diabetes mellitus with diabetic polyneuropathy; Z79.4 Long term (current) use of insulin; E11.22 Type 2 diabetes mellitus with diabetic chronic kidney disease; N18.4 Chronic kidney disease, stage 4 (severe); E66.9 Obesity, unspecified; Z86.73 Personal history of transient ischemic attack (TIA), and cerebral infarction without residual deficits; E16.0 Drug-induced hypoglycemia without coma; T38.3X5A Adverse effect of insulin and oral hypoglycemic [antidiabetic] drugs, initial encounter; X58.XXXA Exposure to other specified factors, initial encounter; Z68.33 Body mass index [BMI] 33.0-33.9, adult | CPT/HCPCS: 80053; 80061; 82044; 83036; 99214 ==

== ENCOUNTER 2023-09-12 08:23 | Outpatient (CLI) | payer MEDICARE, SELFPAY ==
--- NOTE | 2023-09-12 08:30 | CT_ITS ---
WS: [id number] CT chest wo con [id number] HISTORY: abnormal chest ct TECHNIQUE: Axial imaging performed through the thorax. Coronal and sagittal reformats are submitted. All CT scans at [facility] use at least one of these dose optimization techniques: automated exposure control; mA and/or kV adjustment per patient size (includes targeted exams where dose is mat ched to clinical indication); or iterative reconstruction. CONTRAST: None DLP: 599.02 mGy.cm COMPARISON: 05/04/2023 Lungs and central airway: Significant improvement in aeration of both lungs since the prior CT. Minim al residual dependent change at the LEFT lung base. No mass or nodule. No pneumonia. Pleura: Mild pleural thickening at the lung bases, LEFT greater than RIGHT. Heart and pericardium: Mild cardiomegaly. Moderate coronary artery calcification. Mediastinum and yesenia: No mediastinum or hilar adenopathy. Vessels: Mild atherosclerosis aorta. No aneurysm. Normal size pulmonary artery. Chest wall and lower neck: No soft tissue masses. Upper abdomen: Cholelithiasis. No evidence for acute cholecystitis. Suprarenal aortic calcifications. Splenic artery calcification. Osseous structures: Increase in thoracic kyphosis. No destructive bone lesions. CT/CT chest wo con [id number] IMPRESSION: 1. Significant improvement in appearance of the lungs since 05/04/2023. The ar eas of consolidation and the pleural effusions have improved, essentially resol marie. 2. Very minimal pleural thickening at the lung bases. 3. No adenopathy identified. 4. Cardiomegaly, mild. 5. Cholelithiasis without acute cholecystitis.
== END 2023-09-12 08:24 | disposition home or self-care (01) ==
LOC: RAD 08:25
PROVIDERS: PCP Family Medicine; Visit Provider Family Medicine
DX: R93.89 Abnormal findings on diagnostic imaging of other specified body structures (principal); I51.7 Cardiomegaly; K80.20 Calculus of gallbladder without cholecystitis without obstruction
CPT/HCPCS: 71250

== ENCOUNTER → 2023-09-21 09:00 | Outpatient (BNVA) | payer MEDICARE, SELFPAY | PROVIDERS: PCP Family Medicine; Visit Provider Student in an Organized Health Care Education/Training Program | DX: M25.562 Pain in left knee (principal); M17.12 Unilateral primary osteoarthritis, left knee | CPT/HCPCS: 20610; 73560; 73565; 99204; J3301 ==

== ENCOUNTER → 2023-11-19 08:24 | Outpatient (BNVA) | payer MEDICARE, SELFPAY | PROVIDERS: PCP Family Medicine Adult Medicine; Visit Provider Podiatrist Foot & Ankle Surgery | DX: E11.8 Type 2 diabetes mellitus with unspecified complications (principal); E11.42 Type 2 diabetes mellitus with diabetic polyneuropathy; Z79.4 Long term (current) use of insulin; L60.3 Nail dystrophy; M20.41 Other hammer toe(s) (acquired), right foot; M20.42 Other hammer toe(s) (acquired), left foot; L84 Corns and callosities | CPT/HCPCS: 11055; 11721 ==

== ENCOUNTER 2023-12-20 14:28 | Outpatient (CLI) | payer MEDICARE, SELFPAY ==
[2023-12-20 16:01] LABS: Estmated Average Glucose 169; Hemoglobin A1C 7.5 % (4.0-6.0)
[2023-12-20 16:03] LABS: Creatinine Urine, Random 203 mg/dL (39-259)
[2023-12-20 16:05] LABS: Alanine Aminotransferase 23 U/L (0-41); Albumin Level 4.1 g/dL (3.5-5.2); Alkaline Phosphatase 65 U/L (40-130); Anion Gap 18.1 (5-19); Aspartate Amino Transferase 29 U/L (0-40); Blood Urea Nitrogen 26 mg/dL (8-23); Calcium 8.8 mg/dL (8.5-10.5); Carbon Dioxide 31 mmol/L (22-29); Chloride 95 mmol/L (98-107); Cholesterol 121 mg/dL (0-200); Globulin 2.6 g/dL (1.3-4.6); Glucose 131 mg/dL (65-115); HDL Cholesterol 39 mg/dL (60-100); LDL Cholesterol Calculated 50 mg/dL (50-129); LDL HDL Ratio 1.28 RATIO (0.00-3.22); Osmolality Calculated 297 mOsm/kg (285-295); Potassium 4.1 mmol/L (3.5-5.1); Sodium 140 mmol/L (136-145); Total Bilirubin 0.6 mg/dL (0.15-1.2); Total Protein 6.7 g/dL (6.6-8.7); Triglycerides 159 mg/dL (0-150)
[2023-12-20 16:15] LABS: Microalbum Creatinine Ratio Ur 384 mg/dL (0-20); Microalbumin Random Urine 78 ug/dL (0-20)
== END 2023-12-20 14:29 | disposition home or self-care (01) ==
LOC: LAB 14:29
PROVIDERS: PCP Family Medicine Adult Medicine; Visit Provider Internal Medicine
DX: E11.649 Type 2 diabetes mellitus with hypoglycemia without coma (principal); E78.2 Mixed hyperlipidemia; E11.42 Type 2 diabetes mellitus with diabetic polyneuropathy; Z79.4 Long term (current) use of insulin; L97.522 Non-pressure chronic ulcer of other part of left foot with fat layer exposed; E11.621 Type 2 diabetes mellitus with foot ulcer
CPT/HCPCS: 36415; 80053; 80061; 82044; 83036

== ENCOUNTER → 2023-12-25 08:46 | Outpatient (BNVA) | payer MEDICARE, SELFPAY | PROVIDERS: PCP Family Medicine Adult Medicine; Visit Provider Physician Assistant | DX: M17.12 Unilateral primary osteoarthritis, left knee (principal) | CPT/HCPCS: 20610; 99213; J3301 ==

== ENCOUNTER → 2024-01-09 07:56 | Outpatient (BNVA) | payer MEDICARE, SELFPAY | PROVIDERS: PCP Family Medicine Adult Medicine; Visit Provider Internal Medicine | DX: E11.621 Type 2 diabetes mellitus with foot ulcer (principal); L97.522 Non-pressure chronic ulcer of other part of left foot with fat layer exposed; E11.649 Type 2 diabetes mellitus with hypoglycemia without coma; E78.2 Mixed hyperlipidemia; E11.42 Type 2 diabetes mellitus with diabetic polyneuropathy; Z79.4 Long term (current) use of insulin; E11.22 Type 2 diabetes mellitus with diabetic chronic kidney disease; N18.4 Chronic kidney disease, stage 4 (severe); E66.09 Other obesity due to excess calories; Z68.34 Body mass index [BMI] 34.0-34.9, adult; Z86.73 Personal history of transient ischemic attack (TIA), and cerebral infarction without residual deficits; E16.0 Drug-induced hypoglycemia without coma; T38.3X5A Adverse effect of insulin and oral hypoglycemic [antidiabetic] drugs, initial encounter; X58.XXXA Exposure to other specified factors, initial encounter | CPT/HCPCS: 99214 ==

== ENCOUNTER → 2024-02-18 09:20 | Outpatient (BNVA) | payer MEDICARE, SELFPAY | PROVIDERS: PCP Family Medicine Adult Medicine; Visit Provider Podiatrist Foot & Ankle Surgery | DX: E11.42 Type 2 diabetes mellitus with diabetic polyneuropathy (principal); Z79.4 Long term (current) use of insulin; L60.3 Nail dystrophy; M20.42 Other hammer toe(s) (acquired), left foot; L84 Corns and callosities | CPT/HCPCS: 11055; 11721 ==

== ENCOUNTER → 2024-03-27 10:06 | Outpatient (BNVA) | payer MEDICARE, SELFPAY | PROVIDERS: PCP Family Medicine Adult Medicine | DX: M17.0 Bilateral primary osteoarthritis of knee (principal); W19.XXXA Unspecified fall, initial encounter | CPT/HCPCS: 73562 ==

== ENCOUNTER → 2024-03-28 09:26 | Outpatient (BNVA) | payer MEDICARE, SELFPAY | PROVIDERS: PCP Family Medicine Adult Medicine; Visit Provider Physician Assistant | DX: M25.561 Pain in right knee (principal); M17.0 Bilateral primary osteoarthritis of knee; M25.562 Pain in left knee; Z46.89 Encounter for fitting and adjustment of other specified devices | CPT/HCPCS: 73560; 73565 ==

== ENCOUNTER 2024-03-28 11:03 | Outpatient (CLI) | payer MEDICARE, SELFPAY | END 2024-03-28 11:04 | disposition home or self-care (01) | LOC: SPT 11:04 | PROVIDERS: PCP Family Medicine Adult Medicine; Visit Provider Physician Assistant | DX: Z46.89 Encounter for fitting and adjustment of other specified devices (principal); M25.562 Pain in left knee | CPT/HCPCS: 20610; 99213; J3301; L1852 ==

== ENCOUNTER 2024-04-02 10:52 | Outpatient (CLI) | payer MEDICARE, SELFPAY ==
[2024-04-02 11:55] LABS: Alanine Aminotransferase 26 U/L (0-41); Albumin Level 3.6 g/dL (3.5-5.2); Alkaline Phosphatase 52 U/L (40-130); Anion Gap 17.3 (5-19); Aspartate Amino Transferase 26 U/L (0-40); Blood Urea Nitrogen 72 mg/dL (8-23); Calcium 8.8 mg/dL (8.5-10.5); Carbon Dioxide 27 mmol/L (22-29); Chloride 96 mmol/L (98-107); Chol HDL Ratio 2.45 mg/dL (1.0-5.00); Cholesterol 103 mg/dL (0-200); Globulin 1.8 g/dL (1.3-4.6); Glucose 225 mg/dL (65-115); HDL Cholesterol 42 mg/dL (60-100); LDL Cholesterol Calculated 42 mg/dL (50-129); Osmolality Calculated 310 mOsm/kg (285-295); Potassium 4.3 mmol/L (3.5-5.1); Sodium 136 mmol/L (136-145); Total Bilirubin 0.6 mg/dL (0.15-1.2); Total Protein 5.4 g/dL (6.6-8.7); Triglycerides 96 mg/dL (0-150)
[2024-04-02 12:13] LABS: Estmated Average Glucose 169; Hemoglobin A1C 7.5 % (4.0-6.0)
[2024-04-02 17:44] LABS: Creatinine Urine, Random 154 mg/dL (39-259)
[2024-04-02 17:57] LABS: Microalbum Creatinine Ratio Ur 468 mg/dL (0-20); Microalbumin Random Urine 72 ug/dL (0-20)
== END 2024-04-02 10:53 | disposition home or self-care (01) ==
LOC: LAB 10:54
PROVIDERS: PCP Family Medicine Adult Medicine; Visit Provider Internal Medicine
DX: E11.649 Type 2 diabetes mellitus with hypoglycemia without coma (principal); E78.2 Mixed hyperlipidemia; Z68.34 Body mass index [BMI] 34.0-34.9, adult; E66.09 Other obesity due to excess calories; L97.522 Non-pressure chronic ulcer of other part of left foot with fat layer exposed; E11.621 Type 2 diabetes mellitus with foot ulcer
CPT/HCPCS: 36415; 80053; 80061; 82044; 83036

== ENCOUNTER → 2024-04-07 09:02 | Outpatient (BNVA) | payer MEDICARE, SELFPAY | PROVIDERS: PCP Family Medicine Adult Medicine; Visit Provider Internal Medicine | DX: E11.621 Type 2 diabetes mellitus with foot ulcer (principal); L97.522 Non-pressure chronic ulcer of other part of left foot with fat layer exposed; E11.649 Type 2 diabetes mellitus with hypoglycemia without coma; E78.2 Mixed hyperlipidemia; E66.09 Other obesity due to excess calories; Z68.34 Body mass index [BMI] 34.0-34.9, adult; E11.42 Type 2 diabetes mellitus with diabetic polyneuropathy; Z79.4 Long term (current) use of insulin; E11.22 Type 2 diabetes mellitus with diabetic chronic kidney disease; N18.4 Chronic kidney disease, stage 4 (severe); Z86.73 Personal history of transient ischemic attack (TIA), and cerebral infarction without residual deficits; E16.0 Drug-induced hypoglycemia without coma; T38.3X5A Adverse effect of insulin and oral hypoglycemic [antidiabetic] drugs, initial encounter; X58.XXXA Exposure to other specified factors, initial encounter | CPT/HCPCS: 99214 ==

== ENCOUNTER → 2024-05-19 09:15 | Outpatient (BNVA) | payer MEDICARE, SELFPAY | PROVIDERS: PCP Family Medicine Adult Medicine; Visit Provider Podiatrist Foot & Ankle Surgery | DX: E11.8 Type 2 diabetes mellitus with unspecified complications (principal); E11.42 Type 2 diabetes mellitus with diabetic polyneuropathy; Z79.4 Long term (current) use of insulin; L60.3 Nail dystrophy; M20.42 Other hammer toe(s) (acquired), left foot; L84 Corns and callosities | CPT/HCPCS: 11055; 11721 ==

== ENCOUNTER → 2024-05-22 10:00 | Outpatient (BNVA) | payer MEDICARE, SELFPAY | PROVIDERS: PCP Family Medicine Adult Medicine; Visit Provider Emergency Medicine | DX: M54.50 Low back pain, unspecified (principal); R10.9 Unspecified abdominal pain; R39.9 Unspecified symptoms and signs involving the genitourinary system | CPT/HCPCS: 81000; 87086 ==

== ENCOUNTER → 2024-06-05 10:01 | Outpatient (BNVA) | payer MEDICARE, SELFPAY | PROVIDERS: PCP Family Medicine Adult Medicine; Visit Provider Family Medicine | DX: R10.11 Right upper quadrant pain (principal); N18.6 End stage renal disease; Z99.2 Dependence on renal dialysis; G47.33 Obstructive sleep apnea (adult) (pediatric); Z76.89 Persons encountering health services in other specified circumstances; J44.9 Chronic obstructive pulmonary disease, unspecified; F17.211 Nicotine dependence, cigarettes, in remission; N40.1 Benign prostatic hyperplasia with lower urinary tract symptoms; R39.11 Hesitancy of micturition; E78.2 Mixed hyperlipidemia; I10 Essential (primary) hypertension | CPT/HCPCS: 82977; 83615; 84450; 84460 ==

== ENCOUNTER 2024-06-20 09:29 | Outpatient (CLI) | payer MEDICARE, SELFPAY ==
--- NOTE | 2024-06-20 09:45 | US_ITS ---
WS: [id number] RIGHT UPPER QUADRANT ULTRASOUND HISTORY: RUQ abd pain COMPARISON: None available. Liver: 15.4 cm in length. Normal size liver and echogenicity. No bile duct dilatation or mass. Portal Vein: Normal hepatopetal flow with monophasic waveform. Gallbladder: Normally distended gallbladder. There is a stone present in the gallbladder. No gallbladder wall thickening. No pericholecystic fluid. CBD: 0.4 cm Pancreas: Completely obscured. Right kidney: 10.2 cm in length. Normal size kidney with mild cortical thinning. Mild increased echogenicity. Aorta and IVC: Unremarkable abdominal aorta and IVC. No ascites. US/US abdomen limited [id number] IMPRESSION: 1. Cholelithiasis without evidence for acute cholecystitis. 2. Normal liver. No intrahepatic duct dilatation. 3. Normal size kidneys with mild chronic medical renal disease.
== END 2024-06-20 09:30 | disposition home or self-care (01) ==
LOC: RAD 09:30
PROVIDERS: PCP Family Medicine; Visit Provider Family Medicine
DX: R10.11 Right upper quadrant pain (principal); K80.20 Calculus of gallbladder without cholecystitis without obstruction; R93.421 Abnormal radiologic findings on diagnostic imaging of right kidney
CPT/HCPCS: 76705

== ENCOUNTER → 2024-07-01 08:19 | Outpatient (BNVA) | payer MEDICARE, SELFPAY | PROVIDERS: PCP Family Medicine; Visit Provider Physician Assistant | DX: M17.0 Bilateral primary osteoarthritis of knee (principal) | CPT/HCPCS: 20610; 99213; J3301 ==

== ENCOUNTER → 2024-07-02 07:38 | Outpatient (BNVA) | payer MEDICARE, SELFPAY | PROVIDERS: PCP Family Medicine; Visit Provider Surgery | DX: K82.9 Disease of gallbladder, unspecified (principal) | CPT/HCPCS: 99204 ==

== ENCOUNTER 2024-07-02 08:54 | Outpatient (CLI) | payer MEDICARE, SELFPAY ==
[2024-07-02 09:39] LABS: Estmated Average Glucose 189; Hemoglobin A1C 8.2 % (4.0-6.0)
[2024-07-02 09:42] LABS: Alanine Aminotransferase 23 U/L (0-41); Alkaline Phosphatase 67 U/L (40-130); Aspartate Amino Transferase 26 U/L (0-40); Blood Urea Nitrogen 52 mg/dL (8-23); Carbon Dioxide 25 mmol/L (22-29); Chloride 95 mmol/L (98-107); Cholesterol 132 mg/dL (0-200); Globulin 2.6 g/dL (1.3-4.6); Glucose 427 mg/dL (65-115); HDL Cholesterol 44 mg/dL (60-100); LDL Cholesterol Calculated 70 mg/dL (50-129); LDL HDL Ratio 1.59 RATIO (0.00-3.22); Osmolality Calculated 314 mOsm/kg (285-295); Sodium 136 mmol/L (136-145); Total Bilirubin 0.6 mg/dL (0.15-1.2); Total Protein 6.6 g/dL (6.6-8.7); Triglycerides 92 mg/dL (0-150)
[2024-07-02 09:45] LABS: Creatinine Urine, Random 123 mg/dL (39-259); Microalbumin Random Urine 34 ug/dL (0-20)
[2024-07-02 09:46] LABS: Microalbum Creatinine Ratio Ur 276 mg/dL (0-20)
== END 2024-07-02 08:55 | disposition home or self-care (01) ==
LOC: LAB 08:55
PROVIDERS: PCP Family Medicine; Visit Provider Internal Medicine
DX: E11.649 Type 2 diabetes mellitus with hypoglycemia without coma (principal); E78.2 Mixed hyperlipidemia; L97.522 Non-pressure chronic ulcer of other part of left foot with fat layer exposed; E11.621 Type 2 diabetes mellitus with foot ulcer; Z68.34 Body mass index [BMI] 34.0-34.9, adult; E66.09 Other obesity due to excess calories
CPT/HCPCS: 36415; 80053; 80061; 82044; 83036

== ENCOUNTER → 2024-07-09 10:01 | Outpatient (BNVA) | payer MEDICARE, SELFPAY | PROVIDERS: PCP Family Medicine; Visit Provider Internal Medicine | DX: E11.621 Type 2 diabetes mellitus with foot ulcer (principal); L97.522 Non-pressure chronic ulcer of other part of left foot with fat layer exposed; E11.649 Type 2 diabetes mellitus with hypoglycemia without coma; E78.2 Mixed hyperlipidemia; E11.42 Type 2 diabetes mellitus with diabetic polyneuropathy; Z79.4 Long term (current) use of insulin; E11.22 Type 2 diabetes mellitus with diabetic chronic kidney disease; N18.4 Chronic kidney disease, stage 4 (severe); E66.09 Other obesity due to excess calories; Z68.34 Body mass index [BMI] 34.0-34.9, adult; Z86.73 Personal history of transient ischemic attack (TIA), and cerebral infarction without residual deficits; E16.0 Drug-induced hypoglycemia without coma; T38.3X5A Adverse effect of insulin and oral hypoglycemic [antidiabetic] drugs, initial encounter | CPT/HCPCS: 99214 ==

== ENCOUNTER 2024-07-21 05:58 | Day surgery (SDC) | payer MEDICARE, SELFPAY ==
[2024-07-21] VITALS (12 sets, daily range): BP systolic 127–179; BP diastolic 41–70; PULSE 51–64; RESP 15–18; TEMP 36.1–36.5; O2SAT 94–98; BMI 34.8
--- NOTE | 2024-07-21 05:56 | W.PM.OPSUD ---
Surgery/Procedure H&P Update DATE OF PROCEDURE: July 21, 2024 DATE H&P PERFORMED: 07/02/24 H&P UPDATE INFORMATION: I have reviewed H&P completed within last 30 days, I have examined patient prior to procedure, No changes to prior documentation and H&P is in [facility] EMR on date indicated PLANNED PROCEDURE: Operation Date: 07/21/24 07:00 Proposed Procedures p Laparoscopic Possible Open Cholecystectomy 68299 K82.9(Not Applicable) - Odin Toribio MD
[2024-07-21] MEDS: sodium chloride 0.9% 1,000 ML 30 ML IV (06:35)
[2024-07-21 06:38] LABS: Glucose Point of Care 155 mg/dL (70-110)
[2024-07-21 06:43] LABS: Basophils % 0.5 %; Eosinophils # 0.2 10^3/uL (0.0-0.8); Eosinophils % 2.6 %; Hematocrit 34.3 % (37-53); Lymphocytes # 2.3 10^3/uL (0.8-4.8); Lymphocytes % 29.3 %; Mean Corpuscular HGB Conc 33.2 g/dL (30-55); Mean Corpuscular Volume 96.3 fl (82-101); Mean Platelet Volume 9.3 fL (7.4-10.4); Monocytes # 0.9 10^3/uL (0.2-0.9); Neutrophils # 4.27 10^3/uL (1.8-7.7); Neutrophils % 55.3 %; Nucleated Red Blood Cells % 0 %; Platelet Count 190 10^3/cmm (157-399); Red Blood Count 3.56 10^6/uL (3.85-5.65); Red Cell Distribution Width 13.2 % (12.1-15.1); White Blood Count 7.72 10^3/uL (3.29-11.43)
--- NOTE | 2024-07-21 06:59 | ANES.PREANE2 ---
Pre-Anesthetic Assessment Height/Weight: Height 1.8 m Weight 113.398 kg Temp Pulse Resp BP Pulse Ox O2 Del Method 97 F L 51 L 18 179/70 98 Room Air 07/21/24 06:15 07/21/24 06:15 07/21/24 06:15 07/21/24 06:15 07/21/24 06:15 07/21/24 06:15 Operation Date: 07/21/24 07:00 Proposed Procedures p Laparoscopic Possible Open Cholecystectomy 50714 K82.9(Not Applicable) - Odin Toribio MD Familial anesthetic complications: None Was Beta Lisa taken within 24 hours: Yes Was Clonidine taken within 24 hours: N/A Last intake: Intake Last Liquid Date 07/20/24 Last Liquid Time 20:00 Last Solid Date 07/20/24 Last Solid Time 19:00 Social No alcohol and No tobacco Exam alert, oriented x 3, clear to auscultation bilaterally and regular rate & rhythm Airway Mallampati: Class III Dentition: chipped Comments: Comments: Full gandhi Pulmonary Chronic Obstructive Pulmonary Disease and Sleep Apnea CV/HEM Coronary Artery Disease, Hypertension and Myocardial Infarction No stents, medical management EF 33% on perfusion scan Chronic Renal Failure (dialysis sunday) Metabolic Diabetes Mellitus and Hyperlipidemia [facility] Osteoarthritis/DJD Anesthetic Plan ASA status: 4 Anesthesia: General Risk of > 500 ml blood loss (7ml/kg in children): No Other Pertinent Information Discussed with patient and family he is at higher risk of [place]-operative cardiac complications d/t cardiac history and renal failure Medications/Allergies Home Medications ?Medication ?Instructions ?Recorded ?Confirmed ?Last Taken ?Type aspirin 81 mg tablet,delayed 81 mg PO DAILY 06/17/19 07/18/24 07/20/24 History release (Adult Low Dose Aspirin) cholecalciferol (vitamin D3) 50 2,000 unit PO DAILY 06/17/19 07/18/24 07/20/24 History mcg (2,000 unit) capsule diabetic shoes #1 ea 12/16/19 07/08/24 Unknown Rx acetaminophen 500 mg tablet 500 mg PO TID PRN Pain 03/24/20 07/18/24 07/18/24 History pen needle, diabetic 32 gauge x #270 ea 08/02/20 07/08/24 Unknown Rx (BD [place] 2nd Gen Pen Needle) omega 4-gim-jkr-fish oil 300 1 cap PO DAILY 02/24/22 07/18/24 07/20/24 History mg-1,000 mg capsule (Fish Oil) diabetic shoes #1 ea 03/09/22 07/08/24 Unknown Rx CPAP, mask, and tubing #1 ea 06/13/22 07/08/24 Unknown Rx hydroxychloroquine 200 mg tablet 200 mg PO BID #180 tabs 02/07/23 07/18/24 07/20/24 Rx Diabetic shoes #1 ea 11/19/23 07/08/24 Unknown Rx left knee medial loader unloader brace #1 ea 03/28/24 07/08/24 Unknown Rx bumetanide 2 mg tablet 50 mg PO .SUN,MON,SUN,Sun05/19/24 07/18/24 07/20/24 History hydralazine 25 mg tablet 25 mg PO BID #180 tabs 06/13/24 07/18/24 07/20/24 Rx blood-glucose meter,continuous #1 ea 06/18/24 07/08/24 Unknown Rx (FreeStyle Otilio 3 [place]) losartan 50 mg tablet 50 mg PO BID #180 tabs 06/19/24 07/18/24 07/20/24 Rx blood-glucose sensor (Dexcom G6 #3 ea 07/14/24 Unknown Rx Sensor device) allopurinol 100 mg tablet 50 mg PO DAILY 07/18/24 07/18/24 07/18/24 History atorvastatin 40 mg tablet 40 mg PO .BEDTIME 07/18/24 07/18/24 07/20/24 History insulin aspart U-100 100 unit/mL 5 unit SUBCUT TID 07/18/24 07/18/24 07/20/24 History (3 mL) subcutaneous pen (Novolog FlexPen U-100 Insulin aspart) insulin glargine 100 unit/mL (3 28 unit SUBCUT DAILY 07/18/24 07/18/24 07/20/24 History mL) subcutaneous pen (Lantus Solostar U-100 Insulin) metoprolol succinate 25 mg 25 mg PO DAILY 07/18/24 07/21/24 07/21/24 History tablet,extended release 24 hr tamsulosin 0.4 mg capsule 0.4 mg PO DAILY 07/18/24 07/18/24 07/20/24 History Allergies Allergy/AdvReac Type Severity Reaction Status Date / Time No Known Allergies Allergy Verified 07/17/24 14:53 Current Medications Generic Name Dose Route Start Last Admin Trade Name Amaury PRN Reason Stop Dose Admin Sodium Chloride 1,000 mls @ 30 mls/hr 07/21/24 06:15 07/21/24 06:35 Sodium Chloride 0.9% IV 07/22/24 06:14 30 mls/hr .Q24H ROSELIA Administration PFSH Anesthesia Medical History Nicotine dependence, cigarettes, in remission RUQ pain ESRD (end stage renal disease) on dialysis on hemodialysis; gets iron shots there Asymptomatic bradycardia Anti-SUPERVISOR HARD CANDY antibodies present FRANCY (obstructive sleep apnea) CPAP Ganglion cyst of finger of right hand Long-term insulin use Hypoglycemia due to insulin History of stroke Duodenal ulcer COPD (chronic obstructive pulmonary disease) Carotid artery disease without cerebral infarction BPH (benign prostatic hyperplasia) Type 2 diabetes mellitus with diabetic polyneuropathy, with long-term current use of insulin Essential (primary) hypertension Mixed hyperlipidemia Surgical History (Updated 07/02/24 @ 07:56 by BILL Floyd) Status post colonoscopy (12/23/20) AV fistula H/O esophagogastroduodenoscopy (12/23/20) History of colonoscopy with polypectomy 2004 Hx of appendectomy History of arthroscopy of left shoulder Hx of bilateral cataract extraction Family History Father Cirrhosis of liver Other Diabetes Hypertension Social History Smoking and tobacco/nicotine status: never used tobacco/nicotine Quit status (tobacco/nicotine): has quit using Year quit tobacco: 1979 Second hand smoke exposure: Yes Alcohol intake: former Substance/Drug Use: never Household members: spouse Marital status: Number of children: 2 Highest education level completed: High School Graduate service: Yes branch: [employer] Current occupational status: retired Previous occupational history: [employer] Data Anesthesia 07/21/24 06:31 07/21/24 06:31 Short CBC 07/21/24 Range/Units 06:31 WBC 7.72 (3.29-11.43) 10^3/uL Hgb 11.40 (11.27-16.99) g/dL Hct 34.3 L (37-53) % MCV 96.3 (82-101) fl Plt Count 190 (157-399) 10^3/cmm Neut % (Auto) 55.3 % Neut # (Auto) 4.27 (1.8-7.7) 10^3/uL Cardiac Studies: Echocardiogram 05/05/23 Sestamibi Stress Test (Cardiology) 05/08/23
[2024-07-21 07:02] LABS: Blood Urea Nitrogen 54 mg/dL (8-23); Carbon Dioxide 27 mmol/L (22-29); Chloride 99 mmol/L (98-107); Creatinine Clr Calc Pharmacy 16.1287; Glucose 167 mg/dL (65-115); Osmolality Calculated 309 mOsm/kg (285-295); Sodium 140 mmol/L (136-145)
[2024-07-21 07:07] LABS: Anion Gap 18.2 (5-19); Potassium 4.2 mmol/L (3.5-5.1)
[2024-07-21] MEDS: ceFAZolin 2,000 mg SDV 2000 MG IVP (07:14)
[2024-07-21] MEDS: lidocaine-epi 1% PF 1:200,000 30 mL SDV INJECTION (07:37)
[2024-07-21] MEDS: BUPivacaine 0.25% INJ 30 mL INJECTION (07:37)
--- NOTE | 2024-07-21 09:05 | P.OP_ITS ---
Operative Report Date of procedure: July 21, 2024 Pre-op diagnosis: Symptomatic cholelithiasis Post-op diagnosis: Same Post-op findings: There were adhesions from the omentum from the pericolonic tissue to the gallbladder. The mid section of the gallbladder was partially intrahepatic. Otherwise normal biliary anatomy Procedure done: Laparoscopic cholecystectomy Pathology: Gallbladder Surgeon: Odin Toribio MD Distribution Sales Manager: TAMI OR STaff Estimated blood loss: 10 Complications: none Brief History: This is a 83-year-old male with a history of symptomatic cholelithiasis who presented to my office for possible laparoscopic cholecystectomy. After discussion of all risk and benefits as documented in my preop note we decided to proceed. Procedure: Patient was brought into the OR, he was placed in a supine position. General anesthesia was given. The abdomen was prepped and draped in the usual sterile fashion. A timeout was conducted. I accessed the abdomen via a 5 mm Optiview p ort in the left upper quadrant. Initial pneumoperitoneum was obtained and no evidence of visceral injury during entry was noted. At 12 mm trocar was placed in the supraumbilical position under direct visualization. Additional 5 mm trocars were placed in the epigastrium right upper quadrant and right flank under direct visualization. The gallbladder was grasped from the fundus and retracted cephalad, there were adhesions from the pericolonic fat and omentum to the gallbladder, I took down these adhesions with electrocautery in order to visualize the infundibulum. I then grasped the infundibulum and retracted in the inferolateral direction exposing the hepatocystic triangle. The peritoneum anterior to the hepatocystic triangle was opened with electrocautery, I carried this opening in the medial and lateral direction to the edges of the liver and then on the sides of the gallbladder to allow for better exposure. With careful blunt dissection as well as electrocautery I was able to encircle the cystic duct and artery, I also elevated lower third of the gallbladder from the liver bed, thus creating a critical view of safety. The cystic duct and artery were double clipped proximally and single clipped distally and transected. The gallbladder was removed from the liver bed using electrocautery. The mid section of the gallbladder was partially antibiotic and a small hole in the posterior wall of the gallbladder was made during dissection. All the gallbladder leakage was aspirated. the gallbladder was retrieved in an Endo Catch bag via the umbilical trocar site. The liver bed and clips were inspected the area was hemostatic, there was no evidence of bile leak the clips appeared to be in good position. The liver bed was irrigated and suctioned. The umbilical trocar was removed and umbilical trocar site was closed with a 0 Vicryl Victoriano-Bg suture passer under direct visualization. The epigastrium right upper quadrant right flank trocars were removed under direct visualization, the left upper quadrant trocar was used to evacuate the pneumoperitoneum and subsequently removed. Local anesthesia was infiltrated. Hemostasis was achieved from the trocar sites. The wounds were closed in layers using #3-0 Vicryl for the subcutaneous tissue #4 Monocryl for the skin. At the end of the procedure all counts were correct, the patient tolerated well the procedure was transferred to the PACU in stable condition.
[2024-07-21] MEDS: oxyCODONE 5 mg IR Tab/Cap PO (09:47)
--- NOTE | 2024-07-21 10:25 | ANE.PACU2 ---
Inpatient post-anesthesia follow up: Airway intact: Yes Vital signs: Temperature 97 F Pulse Rate 51 Respiratory Rate 18 Blood Pressure 143/51 Pulse Oximetry 94 Oxygen Delivery Me thod Room Air Oxygen Flow Rate 6 Fraction of Inspir ed Oxygen Hydration adequate: Yes Nausea and vomiting: No Pain level: 1 Mental status: Baseline
== END 2024-07-21 10:25 | disposition home or self-care (01) ==
PROVIDERS: Student in an Organized Health Care Education/Training Program; PCP Family Medicine; Visit Provider Surgery
PROC: 0FT44ZZ Resection of Gallbladder, Percutaneous Endoscopic Approach (ICD-10-PCS; CPT 47562; principal; 2024-07-21 07:00)
DX: K80.10 Calculus of gallbladder with chronic cholecystitis without obstruction (principal); K66.0 Peritoneal adhesions (postprocedural) (postinfection); J44.9 Chronic obstructive pulmonary disease, unspecified; I25.10 Atherosclerotic heart disease of native coronary artery without angina pectoris; I25.2 Old myocardial infarction; I12.0 Hypertensive chronic kidney disease with stage 5 chronic kidney disease or end stage renal disease; N18.6 End stage renal disease; Z99.2 Dependence on renal dialysis; E78.2 Mixed hyperlipidemia; G47.33 Obstructive sleep apnea (adult) (pediatric); E11.40 Type 2 diabetes mellitus with diabetic neuropathy, unspecified; F17.211 Nicotine dependence, cigarettes, in remission; E11.22 Type 2 diabetes mellitus with diabetic chronic kidney disease; M19.90 Unspecified osteoarthritis, unspecified site; Z79.899 Other long term (current) drug therapy; Z79.82 Long term (current) use of aspirin; Z79.4 Long term (current) use of insulin
CPT/HCPCS: 47562; 36415; 36416; 80048; 82962; 85025; 88304; A4216; J0131; J0690; J1100; J2371; J2405; J2704; J2710; J3010; J3490; J7030; J9999

== ENCOUNTER → 2024-08-06 08:06 | Outpatient (BNVA) | payer MEDICARE, SELFPAY | PROVIDERS: PCP Family Medicine; Visit Provider Surgery | DX: Z98.890 Other specified postprocedural states (principal); Z90.49 Acquired absence of other specified parts of digestive tract | CPT/HCPCS: 99024 ==

== ENCOUNTER → 2024-08-20 09:20 | Outpatient (BNVA) | payer MEDICARE, SELFPAY | PROVIDERS: PCP Family Medicine; Visit Provider Podiatrist Foot & Ankle Surgery | DX: E11.42 Type 2 diabetes mellitus with diabetic polyneuropathy (principal); L60.3 Nail dystrophy; L84 Corns and callosities; E11.8 Type 2 diabetes mellitus with unspecified complications; Z79.4 Long term (current) use of insulin; M20.41 Other hammer toe(s) (acquired), right foot; M20.42 Other hammer toe(s) (acquired), left foot | CPT/HCPCS: 11055; 11721 ==

== ENCOUNTER → 2024-08-27 13:41 | Outpatient (BNVA) | payer MEDICARE, SELFPAY | PROVIDERS: PCP Family Medicine; Visit Provider Internal Medicine | DX: I12.0 Hypertensive chronic kidney disease with stage 5 chronic kidney disease or end stage renal disease (principal); E11.22 Type 2 diabetes mellitus with diabetic chronic kidney disease; N18.6 End stage renal disease; Z99.2 Dependence on renal dialysis; Z79.85 Long-term (current) use of injectable non-insulin antidiabetic drugs; Z87.891 Personal history of nicotine dependence; E78.2 Mixed hyperlipidemia; G47.33 Obstructive sleep apnea (adult) (pediatric); I73.9 Peripheral vascular disease, unspecified; R06.00 Dyspnea, unspecified | CPT/HCPCS: 99213 ==

== ENCOUNTER → 2024-10-01 10:03 | Outpatient (BNVA) | payer MEDICARE, SELFPAY | PROVIDERS: PCP Family Medicine; Visit Provider Student in an Organized Health Care Education/Training Program | DX: M17.0 Bilateral primary osteoarthritis of knee (principal); Z71.89 Other specified counseling | CPT/HCPCS: 20610; 99213; J7318 ==

== ENCOUNTER → 2024-10-08 10:55 | Outpatient (BNVA) | payer MEDICARE, SELFPAY | PROVIDERS: PCP Family Medicine; Visit Provider Internal Medicine | DX: E11.621 Type 2 diabetes mellitus with foot ulcer (principal); L97.522 Non-pressure chronic ulcer of other part of left foot with fat layer exposed; E66.09 Other obesity due to excess calories; Z68.34 Body mass index [BMI] 34.0-34.9, adult; E11.42 Type 2 diabetes mellitus with diabetic polyneuropathy; Z79.4 Long term (current) use of insulin; E78.2 Mixed hyperlipidemia; E11.649 Type 2 diabetes mellitus with hypoglycemia without coma; E11.22 Type 2 diabetes mellitus with diabetic chronic kidney disease; E16.0 Drug-induced hypoglycemia without coma | CPT/HCPCS: 99214 ==

== ENCOUNTER → 2024-11-17 10:00 | Outpatient (BNVA) | payer MEDICARE, SELFPAY | PROVIDERS: PCP Family Medicine; Visit Provider Podiatrist Foot & Ankle Surgery | DX: E11.42 Type 2 diabetes mellitus with diabetic polyneuropathy (principal); L60.3 Nail dystrophy; L84 Corns and callosities; Z79.4 Long term (current) use of insulin; E11.8 Type 2 diabetes mellitus with unspecified complications; M20.41 Other hammer toe(s) (acquired), right foot; M20.42 Other hammer toe(s) (acquired), left foot | CPT/HCPCS: 11056; 11721 ==

== ENCOUNTER → 2025-02-20 10:56 | Outpatient (BNVA) | payer MEDICARE, SELFPAY | PROVIDERS: PCP Family Medicine; Visit Provider Family Medicine | DX: E11.9 Type 2 diabetes mellitus without complications (principal); E11.42 Type 2 diabetes mellitus with diabetic polyneuropathy; Z79.4 Long term (current) use of insulin | CPT/HCPCS: 83036 ==

== ENCOUNTER → 2025-02-23 11:08 | Outpatient (BNVA) | payer MEDICARE, SELFPAY | PROVIDERS: PCP Family Medicine; Visit Provider Podiatrist Foot & Ankle Surgery | DX: E11.42 Type 2 diabetes mellitus with diabetic polyneuropathy (principal); L60.3 Nail dystrophy; L84 Corns and callosities; E11.8 Type 2 diabetes mellitus with unspecified complications; Z79.4 Long term (current) use of insulin | CPT/HCPCS: 11055; 11721 ==